=== PATIENT | male | born 1990 | race Caucasian/White ===

== ENCOUNTER 2017-04-21 18:32 | Inpatient (IN) | payer MEDICAID, OTHER ==
[~2017-04-21] VITALS: Ht 167.6 cm; Wt 110.0 kg
[2017-04-21] VITALS (9 sets, daily range): BP systolic 107–149; BP diastolic 50–56; PULSE 153–166; RESP 21–30
[2017-04-21] MEDS ORDERED: LABETALOL HCL 20MG INJ IV ONE (20:00)
[2017-04-21] MEDS: DEXTROSE 5%-0.45% NACL 1,000 ML IV SCH (20:10)
[2017-04-21] MEDS: FAMOTIDINE 20 MG INJ IV SCH (20:21)
[2017-04-21] MEDS: LORAZEPAM 2 MG INJ IV PRN (20:21)
[2017-04-21] MEDS: morphine 2 MG INJ IV PRN (20:27)
[2017-04-21] MEDS: IPRATROPIUM (HFA) 12.9 GM INHALER INH PRN (20:39)
[2017-04-21] MEDS: ALBUTEROL HFA 8 GM INHALER INH PRN (20:39)
[2017-04-21 21:14] LABS: AADO2 Arterial 334.8 mmHg (7.0-24.0); Allen Test ACCEPTAB; Arterial Base Excess 2.1 mmol/L (-3.0-3); Arterial COHb 0.3 % (0.0-3.0); Arterial Fraction of Oxyhgb 99.1 % (93.0-99.0); Arterial MetHb 0.5 % (0.0-1.5); Arterial Total Hemglobin 12.6 g/dl (12.0-18.0); MODE VENT - AC
[2017-04-21] MEDS ORDERED: DILTIAZEM 25 MG INJ IV ONE (23:00)
[2017-04-21] MEDS ORDERED: AMIODARONE 150MG/D5W BOLUS 100 ML ONE (23:49)
[2017-04-22] VITALS (34 sets, daily range): BP systolic 95–142; BP diastolic 51–88; PULSE 99–145; RESP 18–27; Ht 167.6 cm; Wt 110.0 kg
[2017-04-22] MEDS ORDERED: AMIODARONE 150MG/D5W BOLUS 100 ML IV ONE
[2017-04-22] MEDS ORDERED: AMIODARONE 900 MG in DEXTROSE 5% 482 ML IV SCH ×2 (00:15→20:30)
[2017-04-22] MEDS: LORAZEPAM 2 MG INJ IV PRN (01:37)
[2017-04-22] MEDS: IPRATROPIUM (HFA) 12.9 GM INHALER INH PRN ×2 (03:09→22:20)
[2017-04-22] MEDS: ALBUTEROL HFA 8 GM INHALER INH PRN ×2 (03:09→22:18)
[2017-04-22] MEDS: morphine 2 MG INJ IV PRN ×2 (04:26→21:39)
[2017-04-22 05:23] LABS: BASOPHIL # 0.1 10^3/ul (0.0-0.1); BASOPHILS % 0.4 % (0.0-2.0); EOSINOPHILS % 0.1 % (0.0-7.0); HEMATOCRIT 34.7 % (42.0-52.0); HEMOGLOBIN 10.6 g/dl (14.0-18.0); LYMPHOCYTES # 3.6 10^3/ul (0.8-2.9); LYMPHOCYTES % 22.4 % (15.0-51.0); MEAN CORPUSCULAR HEMOGLOBIN 24.4 pg (29.0-33.0); MEAN CORPUSCULAR HGB CONC 30.5 g/dl (32.0-37.0); MEAN PLATELET VOLUME 9.8 fl (7.4-10.4); MONOCYTE # 1.1 10^3/ul (0.3-0.9); MONOCYTES % 7.1 % (0.0-11.0); NEUTROPHIL # 11.2 10^3/ul (1.6-7.5); NEUTROPHILS % 69.7 % (39.0-77.0); PLATELET COUNT 560 10^3/UL (140-415); RED BLOOD COUNT 4.34 10^6/ul (4.70-6.10); RED CELL DISTRIBUTION WIDTH 17.9 % (11.5-14.5); WHITE BLOOD COUNT 16.1 10^3/ul (4.8-10.8)
[2017-04-22 05:43] LABS: CALCIUM 9.3 mg/dl (8.4-10.2); CREATININE 0.31 mg/dl (0.61-1.24); POTASSIUM 3.5 mmol/L (3.5-5.1)
[2017-04-22] MEDS: DEXTROSE 5%-0.45% NACL 1,000 ML IV SCH ×2 (06:15→17:11)
--- NOTE | 2017-04-22 07:16 | HP ---
Date/Time of Note Date/Time of Note DATE: 04/22/17 TIME: 07:08 Assessment/Plan VTE Prophylaxis VTE Prophylaxis Intervention: SCD's Lines/Catheters IV Catheter Type (from Nrs): PICC Line Central line still needed: Yes Urinary Cath still in place: Yes Reason Cath still needed: other (indicate) Assessment/Plan Assessment/Plan ASSESSMENT 26-year-old obese male with trach/vent dependent with 30 failure transferred from a [facility] [facility] facility for small bowel obstruction with CT scan finding concerning for the distal colonic pathology. Patient also is septic, as evidenced by fever, leukocytosis and tachycardia, most likely secondary to decubitus ulcer with possible osteomyelitis of the coccyx PLAN -Continue ICU monitoring -Keep n.p.o. -Follow-up surgery recommendations -IV antibiotic -ID consult -Follow-up culture results -We will consider MRI for further evaluation of possible coccyx osteo -Pulmonary to follow along for trach dependent respiratory failure HPI/ROS Admit Date/Time Admit Date/Time Apr 21, 2017 at 18:32 Hx of Present Illness 26-year-old obese male with trach/vent dependent respiratory failure who had been at [facility] [facility] facility was transferred to [facility] for small bowel obstruction. Patient is currently admitted to ICU. He has been tachycardic, sinus as high as 160s. He also had a temp of 100.4. CT abdomen pelvis with findings concerning for small bowel obstruction possibly secondary to distal colonic pathology. It also showed right paracentral decubitus ulcer with increased attenuation of the subcutaneous fat adjacent to the coccygeal tip with osteomyelitis of the coccyx not being able to be excluded. PMH/Family/Social Social History Smoking Status: Unknown if ever smoked Exam/Review of Systems Vital Signs Vitals Vital Signs Date Time Temp Pulse Resp B/P Pulse Ox O2 Delivery O2 Flow Rate FiO2 04/22/17 06:00 134 19 127/78 100 Mechanical Ventilator 04/22/17 05:10 40 04/22/17 04:00 99.2 Intake and Output 04/21/17 04/21/17 04/22/17 15:00 23:00 07:00 Intake Total 300 ml 999.8 ml Output Total 140 ml 200 ml Balance 160 ml 799.8 ml Exam Constitutional: other (trached) Head: normocephalic Respiratory: diminished breath sounds Cardiovascular: regular rate and rhythm Gastrointestinal: soft Extremities: normal pulses Labs Result Diagram: 04/22/1745204/22/17 0453 Medications Medications Current Medications Dextrose/Sodium Chloride (D5-1/2ns) 1,000 ml @ 100 mls/hr Q10H IV Last administered on 04/22/17 06:15; Admin Dose 100 MLS/HR; Start 04/21/17 at 19:48 Ondansetron HCl (Zofran Inj) 4 mg Q6H PRN IV NAUSEA AND/OR VOMITING; Start 04/21/17 at 20:00 Morphine Sulfate (morphine) 2 mg Q4H PRN IV PAIN LEVEL 7-10 Last administered on 04/22/17 04:26; Admin Dose 2 MG; Start 04/21/17 at 20:00 Lorazepam (Ativan) 1 mg Q2H PRN IV ANXIETY Last administered on 04/22/17 01:37 ; Admin Dose 1 MG; Start 04/21/17 at 20:00 Famotidine (Pepcid Iv) 20 mg Q12 IV Last administered on 04/21/17 20:21; Admin Dose 20 MG; Start 04/21/17 at 21:00 GEOVANNA ESTRADA MD Apr 22, 2017 07:16
[2017-04-22] MEDS ORDERED: VANCOMYCIN IV PER PHARMACY XX SCH (07:30)
[2017-04-22] MEDS ORDERED: VANCOMYCIN 2 GM in SOD CHLORIDE 0.9% 500 ML IVPB ONE (09:00)
[2017-04-22] MEDS: PIPER-TAZO 3.375 GM IV (PMX) 50 ML IVPB SCH ×4 (09:00→21:14)
[2017-04-22] MEDS: FAMOTIDINE 20 MG INJ IV SCH ×2 (09:04→21:13)
[2017-04-22] MEDS: ONDANSETRON 4 MG INJ IV PRN (09:43)
[2017-04-22] MEDS ORDERED: PROPOFOL 20 ML ONE (10:49)
[2017-04-22] MEDS ORDERED: ROCURONIUM 50 MG INJ ONE (11:26)
[2017-04-22 11:47] LABS: ADD UMIC YES; UR ASCORBIC ACID NEGATIVE (NEGATIVE); UR BACTERIA FEW /HPF (NONE SEEN); UR BILIRUBIN (Dip) NEGATIVE (NEGATIVE); UR BLOOD (Dip) 2+ mg/dL (NEGATIVE); UR CLARITY CLOUDY (CLEAR); UR COLOR AMBER (YELLOW); UR GLUCOSE (Dip) NEGATIVE (NEGATIVE); UR KETONES (Dip) NEGATIVE (NEGATIVE); UR LEUKOCYTE ESTERASE (Dip) NEGATIVE Leu/ul (NEGATIVE); UR MUCUS MANY /HPF (NONE SEEN); UR NITRITE (Dip) NEGATIVE (NEGATIVE); UR RBC 177 /HPF (0-5); UR SPECIFIC GRAVITY (Dip) 1.034 (1.003-1.030); UR SQUAMOUS EPITHELIAL CELL FEW /HPF (FEW); UR TOTAL PROTEIN (Dip) 2+ mg/dl (NEGATIVE); UR UROBILINOGEN (Dip) NEGATIVE (NEGATIVE)
--- NOTE | 2017-04-22 11:51 | CONS ---
DATE OF ADMISSION: 04/21/2017 DATE OF CONSULTATION: REASON FOR CONSULTATION: Ventilator management. Thank you, DrEmperatriz , for this consultation. HISTORY OF PRESENT ILLNESS: This is a 26-year-old gentleman with multiple medical problems. The pa [facility]ra[facility] at [facility] where he was protocol yesterday, had increasing abdominal pain, nausea, vomiting, evidence of bowel obstruction. In addition, he was tachycardic, heart rate in the 140s, but no hemodynamic compromise requiring transfer to ICU where he continues to have mil d abdominal distention but no hemodynamic compromise is noted. PAST MEDICAL HISTORY: 1. Hypoxemic respiratory failure. 2. Ileus. 3. Decubitus ulcer. 4. Leukocytosis. MEDICATIONS: Per chart. ALLERGIES: NONE. SOCIAL HISTORY: Current nonsmoker, no alcohol, no history of drug use. FAMILY HISTORY: Noncontributory. SYSTEMS REVIEW: A 12-point review of systems unable to perform. PHYSICAL EXAMINATION: GENERAL: Anxious gentleman, appears comfortable at rest, no acute distress. VITAL SIGNS: Currently afebrile, pulse is 120, blood pressure 122/70, O2 saturation 96%, FIO2 of 40 %. NECK: Trach site clean and intact. CARDIAC: S1, S2, no added sounds or murmurs. CHEST: Diminished air entry bilaterally. ABDOMEN: Soft, nontender. No guarding or rebound. EXTREMITIES: No cyanosis, clubbing, 1+ edema. NEUROLOGIC: Generalized weakness. LABORATORY DATA: White count 16.1, hemoglobin 10.6, platelets of 560. BUN 16, creatinine 0.31. Chest x-ray pending at time of this dictation. Abdominal CT showed distended stomach and small patricia l loops concerning for small-bowel obstruction, no evidence of pneumoperitoneum. PLAN: 1. Continue mechanical ventilation. 2. Continue surgical recommendations. 3. Broad-spectrum antibiotics. 4. Wound care. 5. Deep venous thrombosis and gastrointestinal prophylaxis. Dictated By: JIMMIE SAAVEDRA/MASON Conf#: [id number] DID#: [id number]
--- NOTE | 2017-04-22 12:17 | OPPN ---
Date/Time of Note Date/Time of Note DATE: 04/22/17 TIME: 12:16 Proc Note GI Procedure Date 04/22/17 Indication: treatment Pre-procedure Diagnosis Buried bumper syndrome Post-procedure Diagnosis G-tube bumper was in the subcutaneous tissue. Old G-tube with the bumper was removed New PEG placed Severe gastroparesis There was no motility of the small intestine and also 1 L of fluid was removed from the stomach Procedure Performed: Endoscopy Surgeon see signature line Scientific Manager none Anesthesia Type: MAC Tourniquet Time none EBL none Transfusion required none Biopsy 1: None Grafts/Implants none Tubes/Drains none Complication(s) none Disposition: other (Procedure was done bedside in ICU) Procedure Description Report dictated JAMES GOODWIN MD Apr 22, 2017 12:17
--- NOTE | 2017-04-22 12:44 | GILP ---
DATE OF PROCEDURE: The patient is a 26-year-old male undergoing this procedure for the buried bumper syndrome. The bum per was not in the stomach, it was in the subcutaneous tissue. The purpose is to evaluate the stoma ch and remove the bumper under endoscopic guidance and also put another G-tube, hopefully through th e same opening. The risk of the procedure, related and unrelated complications, anesthetic risks, a lternatives discussed. Informed consent was obtained. DESCRIPTION OF PROCEDURE: The procedure was done bedside. After obtaining sedation, scope was pass ed with much ease into the esophagus. There was a large quantity of fluid in the fundal area, it wa s biliary juice dilated with gastric content. One liter of fluid was removed. The bumper was in th e subcutaneous tissue barely the white part, 10% of the bumper was visualized from the stomach. Thr ough the external stalk I passed the suture to come out through the bumper into the stomach. The blue string was then snared with endoscopically passed snared and pulled out through the m outh. The loop of the original G-tube was tied to the string and the string was pulled out on the o ther side. The old G-tube was removed by traction and through the same opening that the new G-tube was pulled out and the whole procedure was completed by modified Ponsky technique. The patient was rescoped. The position of the internal bumper confirmed. Pictures were taken for documentation adv anced into the duodenum. Ampulla appeared normal. There was some fluid in the duodenum which was a spirated, but there was absolutely no peristalsis both in the stomach and duodenum. Retroversion do ne. Again, there was some fluid in the fundal area tried to aspirate as much as possible. Scope wa s straightened out and removed with good patient tolerance. IMPRESSION: 1. Buried bumper in the subcutaneous tissue, barely visualized from the stomach. 2. Placement of the new G-tube through the same opening. 3. One liter of fluid was removed from the stomach. 4. Severe gastroparesis. 5. The peristalsis was absent, even in the small intestine. PLAN: To start the patient on Reglan IV. Hopefully we will get back his peristalsis and then eithe r we can resume feeding or give Maxzide to clean him out. Dictated By: JAMES FERGUSON/MASON Conf#: [id number] DID#: [id number]
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
[2017-04-22] MEDS ORDERED: VANCOMYCIN 1.25 GM in SOD CHLORIDE 0.9% 250 ML IVPB SCH (17:00)
[2017-04-22] MEDS: METOCLOPRAMIDE 10 MG INJ IV SCH ×2 (17:08→23:57)
[2017-04-23] VITALS (36 sets, daily range): BP systolic 91–132; BP diastolic 44–64; PULSE 71–108; RESP 20–24
[2017-04-23] MEDS: ACCU-CHEK XX SCH ×5 (00:10→23:43)
[2017-04-23] MEDS: morphine 2 MG INJ IV PRN ×4 (01:50→20:39)
[2017-04-23] MEDS: DEXTROSE 5%-0.45% NACL 1,000 ML IV SCH ×2 (01:54→15:06)
[2017-04-23 05:31] LABS: BASOPHIL # 0.1 10^3/ul (0.0-0.1); BASOPHILS % 0.5 % (0.0-2.0); EOSINOPHILS # 0.3 10^3/ul (0.0-0.5); EOSINOPHILS % 2.2 % (0.0-7.0); HEMATOCRIT 28.5 % (42.0-52.0); HEMOGLOBIN 8.6 g/dl (14.0-18.0); LYMPHOCYTES # 2.6 10^3/ul (0.8-2.9); LYMPHOCYTES % 19.8 % (15.0-51.0); MEAN CORPUSCULAR HEMOGLOBIN 24.4 pg (29.0-33.0); MEAN CORPUSCULAR HGB CONC 30.2 g/dl (32.0-37.0); MEAN PLATELET VOLUME 9.6 fl (7.4-10.4); MONOCYTE # 0.9 10^3/ul (0.3-0.9); MONOCYTES % 6.7 % (0.0-11.0); NEUTROPHIL # 9.3 10^3/ul (1.6-7.5); NEUTROPHILS % 70.3 % (39.0-77.0); PLATELET COUNT 427 10^3/UL (140-415); RED BLOOD COUNT 3.52 10^6/ul (4.70-6.10); RED CELL DISTRIBUTION WIDTH 17.7 % (11.5-14.5); WHITE BLOOD COUNT 13.2 10^3/ul (4.8-10.8)
[2017-04-23 05:41] LABS: CALCIUM 8.4 mg/dl (8.4-10.2); CREATININE 0.27 mg/dl (0.61-1.24); MAGNESIUM 1.8 mg/dl (1.7-2.5); PHOSPHORUS 4.1 mg/dl (2.5-4.9)
[2017-04-23] MEDS: LORAZEPAM 2 MG INJ IV PRN ×4 (05:44→22:28)
[2017-04-23] MEDS: PIPER-TAZO 3.375 GM IV (PMX) 50 ML IVPB SCH ×4 (05:44→21:15)
[2017-04-23] MEDS: METOCLOPRAMIDE 10 MG INJ IV SCH ×4 (05:44→23:37)
[2017-04-23 05:49] LABS: POTASSIUM 2.7 mmol/L (3.5-5.1)
[2017-04-23] MEDS ORDERED: POTASSIUM CHLORIDE 250 ML IVPB ONE (06:00)
[2017-04-23] MEDS ORDERED: POTASSIUM CHLORIDE 250 ML ONE (06:04)
[2017-04-23] MEDS: IPRATROPIUM (HFA) 12.9 GM INHALER INH PRN (07:28)
[2017-04-23] MEDS: ALBUTEROL HFA 8 GM INHALER INH PRN (07:29)
[2017-04-23] MEDS: FAMOTIDINE 20 MG INJ IV SCH ×2 (09:22→21:15)
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
[2017-04-23] MEDS ORDERED: POTASSIUM CHLORIDE 20 MEQ in DEXTROSE 5% 100 ML IVPB ONE (10:00)
[2017-04-23] MEDS ORDERED: MAGNESIUM SULFATE 3 GM in DEXTROSE 5% 100 ML IVPB ONE (10:00)
[2017-04-23] MEDS ORDERED: VANCOMYCIN 1.25 GM in SOD CHLORIDE 0.9% 250 ML IVPB SCH (10:00)
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
[2017-04-23 13:29] LABS: CALCIUM 8.8 mg/dl (8.4-10.2); CREATININE 0.32 mg/dl (0.61-1.24); POTASSIUM 3.5 mmol/L (3.5-5.1)
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
--- NOTE | 2017-04-23 13:56 | PN ---
Date/Time of Note Date/Time of Note DATE: 04/23/17 TIME: 13:48 Assessment/Plan Lines/Catheters IV Catheter Type (from [facility] Mid Line Schumacher in Place (from [facility]): Yes Assessment/Plan Chief Complaint/Hosp Course 1. Small bowel obstruction from ?distal colon pathology: now w bowel function to rectal tube; likely resolved -gi for evaluation of ?distal colon pathology -rectal tube to contain feces away from sacral wound -ivf -monitor -eventual ostomy 2. Gtube dislodgement -found at subq; replced by gi -monitor 3. Leukocytosis: likely 2/2 #1+/-2 +/- 6; improving -as above 4. Microcytic, hypochromic anemia: -monitor -transfuse as needed -further workup per medical team 5. VDRF -pulm toilet -respiratory treatments 6. Sacral wound: -debridement prn -local care-changed to bid -frequent turning and off-loading -low air loss mattress -vitamin c -short term zinc -optimize nutrition -cultures 7. Sinus tachycardia: s/p amio drip -per cards Thank you. Patient seen and examined in collaboration with Dr. Kevin Rushing. Problems: Subjective 24 Hr Interval Summary Feels much improved. Abdominal distention much improved. +bowel function per rectal tube. No fevers, chills, sob, congested cough, cp, palpitations, blanco, dizziness, n/v/d/dysuria. Exam/Review of Systems Vital Signs Vitals Vital Signs Date Time Temp Pulse Resp B/P Pulse Ox O2 Delivery O2 Flow Rate FiO2 04/23/17 13:23 92 20 98 40 04/23/17 12:00 94/58 Mechanical Ventilator 04/23/17 11:00 98.3 Intake and Output 04/22/17 04/22/17 04/23/17 15:00 23:00 07:00 Intake Total 683.30 ml 945.82 ml Output Total 200 ml 1010 ml 350 ml Balance -200 ml -326.70 ml 595.82 ml Exam Free Text/Dictation Constitutional: alert, oriented Psych: anxiety Head: atraumatic, normocephalic Eyes: nl lids, nl sclera ENMT: mucosa pink and moist, nl nasal mucosa & septum Neck: non-tender, other (trach), supple Respiratory: No labored breathing Cardiovascular: rrr, sr Gastrointestinal: distended (mod ), soft, No tender Genitourinary - Male: nl penis, nl scrotum Musculoskeletal: nl extremities to inspection, No muscle tone Extremities: normal pulses, No edema Neurological: other (quadriplegia), No nl strength Skin: other (wounds - nurses notes and pics: sacral wound packed, malodorous, erythema periwound ) Results Result Diagram: 04/23/17 0458 04/23/17 1238 REGINO GLOVER NP Apr 23, 2017 13:55
[2017-04-23] MEDS: VANCOMYCIN 1 GM in NS 250 ML IVPB SCH ×2 (15:02→22:17)
[2017-04-23] MEDS: SODIUM HYPOCHLORITE 1/40% 1L IRRIG IRR SCH (15:58)
[2017-04-23] MEDS: COLLAGENASE 30 GM TUBE TOP SCH (16:00)
--- NOTE | 2017-04-23 16:26 | CONS ---
Date/Time of Note Date/Time of Note DATE: 04/23/17 TIME: 16:24 Assessment/Plan Assessment/Plan Additional Assessment/Plan 1. Buried bumper syndrome. Old G-tube was removed and new PEG was placed 2. Vent dependent respiratory failure 3. Obesity 4. Quadriplegia 5. Ileus 6. Decubitus ulcer Plan Plan the G-tube if no abdominal distention nausea vomiting then he can start feeding him after few hours. We will start with 20 cc/h and advance it slowly Consultation Date/Type/Reason Admit Date/Time Apr 21, 2017 at 18:32 Initial Consult Date 04/22/17 Type of Consultation: ID 24 HR Interval Summary Free Text/Dictation No complaints No abdominal pain no nausea no vomiting. Exam/Review of Systems Vital Signs Vitals Vital Signs Date Time Temp Pulse Resp B/P Pulse Ox O2 Delivery O2 Flow Rate FiO2 04/23/17 15:25 88 20 100 40 04/23/17 15:00 99/48 Mechanical Ventilator 04/23/17 11:00 98.3 Intake and Output 04/22/17 04/22/17 04/23/17 14:59 22:59 06:59 Intake Total 566.64 ml 983.28 ml Output Total 210 ml 990 ml 400 ml Balance -210 ml -423.36 ml 583.28 ml Exam Constitutional: alert, oriented, well developed Psych: nl mood/affect, no complaints Head: atraumatic, normocephalic Eyes: EOMI, PERRL, nl conjunctiva, nl lids, nl sclera ENMT: nl external ears & nose, nl lips & teeth, nl nasal mucosa & septum Neck: non-tender, supple Respiratory: clear to auscultation, normal air movement Cardiovascular: nl pulses, regular rate and rhythm Gastrointestinal: nl liver, spleen, non-tender, soft Musculoskeletal: nl extremities to inspection, nl gait and stance Extremities: normal pulses Neurological: APPLICATION DEVELOPMENT LIAISON II-XII intact, nl mental status, nl speech, nl strength Skin: nl turgor, No rash or lesions Lymph: nl lymph nodes Results Result Diagram: 04/23/17 0458 04/23/17 1238 Results 24 hrs Laboratory Tests Test 04/23/17 00:12 04/23/17 04:58 04/23/17 06:10 04/23/17 07:59 Bedside Glucose 123 109 White Blood Count 13.2 H Red Blood Count 3.52 L Hemoglobin 8.6 L Hematocrit 28.5 L Mean Corpuscular Volume 81.0 L Mean Corpuscular Hemoglobin 24.4 L Mean Corpuscular Hemoglobin Concent 30.2 L Red Cell Distribution Width 17.7 H Platelet Count 427 #H Mean Platelet Volume 9.6 Neutrophils % 70.3 Lymphocytes % 19.8 Monocytes % 6.7 Eosinophils % 2.2 Basophils % 0.5 Nucleated Red Blood Cells % 0.0 Neutrophils # 9.3 H Lymphocytes # 2.6 Monocytes # 0.9 Eosinophils # 0.3 Basophils # 0.1 Nucleated Red Blood Cells # 0.0 Sodium Level 136 Potassium Level 2.7 *L Chloride Level 100 Carbon Dioxide Level 26 Anion Gap 13 Blood Urea Nitrogen 11 Creatinine 0.27 L Glucose Level 113 Calcium Level 8.4 Phosphorus Level 4.1 Magnesium Level 1.8 Vancomycin Level Trough 8.2 L Test 04/23/17 12:38 04/23/17 13:16 Sodium Level 137 Potassium Level 3.5 Chloride Level 102 Carbon Dioxide Level 25 Anion Gap 14 Blood Urea Nitrogen 9 Creatinine 0.32 L Glucose Level 99 Calcium Level 8.8 Bedside Glucose 104 Medications Medications Current Medications Dextrose/Sodium Chloride (D5-1/2ns) 1,000 ml @ 100 mls/hr Q10H IV Last administered on 04/23/17 15:06; Admin Dose 100 MLS/HR; Start 04/21/17 at 19:48 Ondansetron HCl (Zofran Inj) 4 mg Q6H PRN IV NAUSEA AND/OR VOMITING Last administered on 04/22/17 09:43; Admin Dose 4 MG; Start 04/21/17 at 20:00 Morphine Sulfate (morphine) 2 mg Q4H PRN IV PAIN LEVEL 7-10 Last administered on 04/23/17 15:56; Admin Dose 2 MG; Start 04/21/17 at 20:00 Lorazepam (Ativan) 1 mg Q2H PRN IV ANXIETY Last administered on 04/23/17 15: 56; Admin Dose 1 MG; Start 04/21/17 at 20:00 Famotidine 20 mg 20 mg Q12 IV Last administered on 04/23/17 09:22; Admin Dose 20 MG; Start 04/21/17 at 21:00 Piperacillin Sod/ Tazobactam Sod (Zosyn 3.375gm/ 50 ml (Pmx)) 50 ml @ 100 mls/ hr Q6H IVPB Last administered on 04/23/17 15:55; Admin Dose 100 MLS/HR; Start 04/22/17 at 09:00 Metoclopramide HCl (Reglan) 10 mg Q6 IV Last administered on 04/23/17 13:17; Admin Dose 10 MG; Start 04/22/17 at 18:00 Diagnostic Test (Pha) 1 ea 1 ea Q6 XX Last administered on 04/23/17 06:11; Admin Dose 1 EA; Start 04/23/17 at 00:00 Vancomycin HCl (Vancocin) 250 ml @ 125 mls/hr Q8 IVPB Last administered on 15:02; Admin Dose 125 MLS/HR; Start 04/23/17 at 14:00 Sodium Hypochlorite (Dakin'S (Dilute 1/40%)) 1 applic BID IRR Last administered on 04/23/17 15:58; Admin Dose 1 APPLIC; Start 04/23/17 at 14:30 Collagenase (Santyl) 1 applic DAILY TOP ; Start 04/23/17 at 16:00 JAMES GOODWIN MD Apr 23, 2017 16:26
--- NOTE | 2017-04-23 16:46 | PN ---
Date/Time of Note Date/Time of Note DATE: 04/23/17 TIME: 16:40 Assessment/Plan VTE Prophylaxis VTE Prophylaxis Intervention: SCD's Assessment/Plan Chief Complaint/Hosp Course 1. Small bowel obstruction-resolved -rectal tube in place to keep feces away from sacral wound -eventual ostomy 2. PEG tube dislodgement -PEG tube was changed by GI 3. Sepsis secondary to decubitus wounds -Continue IV antibiotics -Wound care 4. Microcytic anemia secondary to anemia of chronic disease 5. VDRF -Continue vent support -Pulmonology following 6. Sacral wound: -debridement as needed -Surgical consultation appreciated -Follow-up on cultures 7. Sinus tachycardia status post amiodarone drip-resolved -Cardiology consultation appreciated -Preserved EF Prophylaxis: SCDs Problems: Subjective 24 Hr Interval Summary Subjective hx not possible: pt non-verbal Exam/Review of Systems Vital Signs Vitals Vital Signs Date Time Temp Pulse Resp B/P Pulse Ox O2 Delivery O2 Flow Rate FiO2 04/23/17 15:25 88 20 100 40 04/23/17 15:00 99/48 Mechanical Ventilator 04/23/17 11:00 98.3 Intake and Output 04/22/17 04/22/17 04/23/17 15:00 23:00 07:00 Intake Total 683.30 ml 945.82 ml Output Total 200 ml 1010 ml 350 ml Balance -200 ml -326.70 ml 595.82 ml Exam Constitutional: non-verbal Respiratory: clear to auscultation Cardiovascular: regular rate and rhythm Gastrointestinal: soft, No distended Musculoskeletal: nl extremities to inspection Results Result Diagram: 04/23/17 0458 04/23/17 1238 Results 24 hrs Laboratory Tests Test 04/23/17 00:12 04/23/17 04:58 04/23/17 06:10 04/23/17 07:59 Bedside Glucose 123 109 White Blood Count 13.2 H Red Blood Count 3.52 L Hemoglobin 8.6 L Hematocrit 28.5 L Mean Corpuscular Volume 81.0 L Mean Corpuscular Hemoglobin 24.4 L Mean Corpuscular Hemoglobin Concent 30.2 L Red Cell Distribution Width 17.7 H Platelet Count 427 #H Mean Platelet Volume 9.6 Neutrophils % 70.3 Lymphocytes % 19.8 Monocytes % 6.7 Eosinophils % 2.2 Basophils % 0.5 Nucleated Red Blood Cells % 0.0 Neutrophils # 9.3 H Lymphocytes # 2.6 Monocytes # 0.9 Eosinophils # 0.3 Basophils # 0.1 Nucleated Red Blood Cells # 0.0 Sodium Level 136 Potassium Level 2.7 *L Chloride Level 100 Carbon Dioxide Level 26 Anion Gap 13 Blood Urea Nitrogen 11 Creatinine 0.27 L Glucose Level 113 Calcium Level 8.4 Phosphorus Level 4.1 Magnesium Level 1.8 Vancomycin Level Trough 8.2 L Test 04/23/17 12:38 04/23/17 13:16 Sodium Level 137 Potassium Level 3.5 Chloride Level 102 Carbon Dioxide Level 25 Anion Gap 14 Blood Urea Nitrogen 9 Creatinine 0.32 L Glucose Level 99 Calcium Level 8.8 Bedside Glucose 104 Medications Medications Current Medications Dextrose/Sodium Chloride (D5-1/2ns) 1,000 ml @ 100 mls/hr Q10H IV Last administered on 04/23/17 15:06; Admin Dose 100 MLS/HR; Start 04/21/17 at 19:48 Ondansetron HCl (Zofran Inj) 4 mg Q6H PRN IV NAUSEA AND/OR VOMITING Last administered on 04/22/17 09:43; Admin Dose 4 MG; Start 04/21/17 at 20:00 Morphine Sulfate (morphine) 2 mg Q4H PRN IV PAIN LEVEL 7-10 Last administered on 04/23/17 15:56; Admin Dose 2 MG; Start 04/21/17 at 20:00 Lorazepam (Ativan) 1 mg Q2H PRN IV ANXIETY Last administered on 04/23/17 15: 56; Admin Dose 1 MG; Start 04/21/17 at 20:00 Famotidine 20 mg 20 mg Q12 IV Last administered on 04/23/17 09:22; Admin Dose 20 MG; Start 04/21/17 at 21:00 Piperacillin Sod/ Tazobactam Sod (Zosyn 3.375gm/ 50 ml (Pmx)) 50 ml @ 100 mls/ hr Q6H IVPB Last administered on 04/23/17 15:55; Admin Dose 100 MLS/HR; Start 04/22/17 at 09:00 Metoclopramide HCl (Reglan) 10 mg Q6 IV Last administered on 04/23/17 13:17; Admin Dose 10 MG; Start 04/22/17 at 18:00 Diagnostic Test (Pha) 1 ea 1 ea Q6 XX Last administered on 04/23/17 06:11; Admin Dose 1 EA; Start 04/23/17 at 00:00 Vancomycin HCl (Vancocin) 250 ml @ 125 mls/hr Q8 IVPB Last administered on 15:02; Admin Dose 125 MLS/HR; Start 04/23/17 at 14:00 Sodium Hypochlorite (Dakin'S (Dilute 1/40%)) 1 applic BID IRR Last administered on 04/23/17 15:58; Admin Dose 1 APPLIC; Start 04/23/17 at 14:30 Collagenase (Santyl) 1 applic DAILY TOP ; Start 04/23/17 at 16:00 SVEN WALLACE Apr 23, 2017 16:46
--- NOTE | 2017-04-23 19:26 | CONS ---
DATE OF ADMISSION: 04/21/2017 DATE OF CONSULTATION: 04/21/2017 CONSULTING SERVICE: Gastroenterology. REQUESTING PROVIDER: Dallas Gaming MD. HISTORY OF PRESENT ILLNESS: A 26-year-old male with trach, status post , who was in [facility]. The patient was prepared with GoLYTELY for constipation and for some reason he had no bowel movement despite taking 4 liters of GoLYTELY. At that point, a CAT scan was done and the G-tube was not in the stomach and there was narrowing in the distal part of the colon, so GI consult was leyva d in. 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 He denies having an y abdominal pain. No nausea, no vomiting, no GI bleeding, no fever, no chills. Because of the tach ycardia and inability to have a bowel movement, he was subsequently transferred to intensive care [facility] for further management. PAST MEDICAL HISTORY: Negative. SOCIAL HISTORY: Does not smoke or drink. PHYSICAL EXAMINATION: VITALS: Stable. GENERAL: Patient is alert, awake, communicating, oriented, morbidly obese. CARDIOVASCULAR: No murmur. LUNGS: Air entry diminished at both bases. ABDOMEN: Soft. G-tube in place, but does not move in and out, indicating that it is buried in the subcutaneous tissue. EXTREMITIES: No edema. CENTRAL NERVOUS SYSTEM: Grossly within normal limit except for paraplegia. LABORATORY DATA: WBC 16, hematocrit 34. IMPRESSION: 1. Respiratory failure, vent dependent. 2. Ileus. 3. Buried bumper syndrome. 4. Decubitus ulcer. 5. Leukocytosis. 6. Quadriplegia. PLAN: At this point is to proceed with EGD and under endoscopic guidance document and remove the G- tube and replace it with a new G-tube, hopefully through same opening. Continue all the supportive care. Dictated By: JAMES FERGUSON/MASON Conf#: [id number] DID#: [id number]
[2017-04-23] MEDS: TRIAMCINOLONE ACET 0.1% 15 GM OINT TOP SCH (23:37)
[2017-04-24] VITALS (34 sets, daily range): BP systolic 97–131; BP diastolic 45–75; PULSE 79–124; RESP 13–26
[2017-04-24] MEDS: PIPER-TAZO 3.375 GM IV (PMX) 50 ML IVPB SCH ×3 (02:37→14:07)
[2017-04-24] MEDS: SODIUM HYPOCHLORITE 1/40% 1L IRRIG IRR SCH ×3 (02:47→21:21)
[2017-04-24] MEDS: LORAZEPAM 2 MG INJ IV PRN ×4 (03:57→23:04)
[2017-04-24] MEDS: METOCLOPRAMIDE 10 MG INJ IV SCH ×3 (05:16→18:23)
[2017-04-24] MEDS: VANCOMYCIN 1 GM in NS 250 ML IVPB SCH ×2 (05:17→14:07)
[2017-04-24] MEDS: morphine 2 MG INJ IV PRN ×4 (05:17→18:21)
[2017-04-24] MEDS: DEXTROSE 5%-0.45% NACL 1,000 ML IV SCH ×2 (06:33→07:48)
[2017-04-24] MEDS: ACCU-CHEK XX SCH ×5 (06:39→21:00)
[2017-04-24] MEDS: ALBUTEROL HFA 8 GM INHALER INH PRN ×3 (07:43→20:54)
[2017-04-24] MEDS: IPRATROPIUM (HFA) 12.9 GM INHALER INH PRN ×3 (07:44→20:55)
[2017-04-24 08:56] LABS: BASOPHIL # 0.1 10^3/ul (0.0-0.1); BASOPHILS % 0.4 % (0.0-2.0); EOSINOPHILS # 0.4 10^3/ul (0.0-0.5); EOSINOPHILS % 3.1 % (0.0-7.0); HEMATOCRIT 26.5 % (42.0-52.0); HEMOGLOBIN 8.2 g/dl (14.0-18.0); LYMPHOCYTES # 1.8 10^3/ul (0.8-2.9); LYMPHOCYTES % 16.2 % (15.0-51.0); MEAN CORPUSCULAR HEMOGLOBIN 25.3 pg (29.0-33.0); MEAN CORPUSCULAR HGB CONC 30.9 g/dl (32.0-37.0); MEAN CORPUSCULAR VOLUME 81.8 fl (82.0-101.0); MEAN PLATELET VOLUME 9.9 fl (7.4-10.4); MONOCYTE # 0.6 10^3/ul (0.3-0.9); NEUTROPHIL # 8.4 10^3/ul (1.6-7.5); NEUTROPHILS % 74.9 % (39.0-77.0); PLATELET COUNT 449 10^3/UL (140-415); RED BLOOD COUNT 3.24 10^6/ul (4.70-6.10); RED CELL DISTRIBUTION WIDTH 17.2 % (11.5-14.5); WHITE BLOOD COUNT 11.2 10^3/ul (4.8-10.8)
[2017-04-24] MEDS: COLLAGENASE 30 GM TUBE TOP SCH (09:00)
[2017-04-24] MEDS: TRIAMCINOLONE ACET 0.1% 15 GM OINT TOP SCH (09:01)
[2017-04-24] MEDS: FAMOTIDINE 20 MG INJ IV SCH (09:01)
[2017-04-24 09:16] LABS: CALCIUM 8.6 mg/dl (8.4-10.2); CREATININE 0.27 mg/dl (0.61-1.24); POTASSIUM 3.1 mmol/L (3.5-5.1)
[2017-04-24] MEDS: VANCOMYCIN HCL 250 MG/5ML POSYG PO SCH ×2 (11:32→18:20)
--- NOTE | 2017-04-24 11:48 | CONS ---
Date/Time of Note Date/Time of Note DATE: 04/24/17 TIME: 11:45 Consult Date/Type/Reason Admit Date/Time Apr 21, 2017 at 18:32 Initial Consult Date 04/22/17 Type of Consultation: Pulmonary Subjective Patient remains stable. Awake alert oriented. No vasopressors. Tube feeding being started. Objective Vital Signs Date Time Temp Pulse Resp B/P Pulse Ox O2 Delivery O2 Flow Rate FiO2 04/24/17 09:00 106 21 97 04/24/17 08:00 98.1 107/54 Mechanical Ventilator 04/24/17 08:00 35 Intake and Output 04/23/17 04/23/17 04/24/17 15:00 23:00 07:00 Intake Total 886.9 ml 1100 ml 1150 ml Output Total 301 ml 536 ml 890 ml Balance 585.9 ml 564 ml 260 ml Exam PHYSICAL EXAMINATION: GENERAL: Anxious gentleman, appears comfortable at rest, no acute distress. VITAL SIGNS: NECK: Trach site clean and intact. CARDIAC: S1, S2, no added sounds or murmurs. CHEST: Diminished air entry bilaterally. ABDOMEN: Soft, nontender. No guarding or rebound. EXTREMITIES: No cyanosis, clubbing, 1+ edema. NEUROLOGIC: Generalized weakness. Results/Medications Result Diagram: 04/24/17 0816 04/24/17 0816 Results 24 hrs Laboratory Tests Test 04/23/17 12:38 04/23/17 13:16 04/23/17 19:20 04/23/17 23:42 Sodium Level 137 Potassium Level 3.5 Chloride Level 102 Carbon Dioxide Level 25 Anion Gap 14 Blood Urea Nitrogen 9 Creatinine 0.32 L Glucose Level 99 Calcium Level 8.8 Bedside Glucose 104 113 91 Test 04/24/17 03:56 04/24/17 06:36 04/24/17 08:16 04/24/17 11:41 Bedside Glucose 97 93 104 White Blood Count 11.2 H Red Blood Count 3.24 L Hemoglobin 8.2 L Hematocrit 26.5 L Mean Corpuscular Volume 81.8 L Mean Corpuscular Hemoglobin 25.3 L Mean Corpuscular Hemoglobin Concent 30.9 L Red Cell Distribution Width 17.2 H Platelet Count 449 H Mean Platelet Volume 9.9 Neutrophils % 74.9 Lymphocytes % 16.2 Monocytes % 5.0 Eosinophils % 3.1 Basophils % 0.4 Nucleated Red Blood Cells % 0.0 Neutrophils # 8.4 H Lymphocytes # 1.8 Monocytes # 0.6 Eosinophils # 0.4 Basophils # 0.1 Nucleated Red Blood Cells # 0.0 Sodium Level 140 Potassium Level 3.1 L Chloride Level 106 Carbon Dioxide Level 24 Anion Gap 13 Blood Urea Nitrogen 5 L Creatinine 0.27 L Glucose Level 93 Calcium Level 8.6 Medications Current Medications Ondansetron HCl (Zofran Inj) 4 mg Q6H PRN IV NAUSEA AND/OR VOMITING Last administered on 04/22/17 09:43; Admin Dose 4 MG; Start 04/21/17 at 20:00 Morphine Sulfate (morphine) 2 mg Q4H PRN IV PAIN LEVEL 7-10 Last administered on 04/24/17 09:14; Admin Dose 2 MG; Start 04/21/17 at 20:00 Lorazepam (Ativan) 1 mg Q2H PRN IV ANXIETY Last administered on 04/24/17 09: 14; Admin Dose 1 MG; Start 04/21/17 at 20:00 Famotidine 20 mg 20 mg Q12 IV Last administered on 04/24/17 09:01; Admin Dose 20 MG; Start 04/21/17 at 21:00 Piperacillin Sod/ Tazobactam Sod (Zosyn 3.375gm/ 50 ml (Pmx)) 50 ml @ 100 mls/ hr Q6H IVPB Last administered on 04/24/17 09:01; Admin Dose 100 MLS/HR; Start 04/22/17 at 09:00 Metoclopramide HCl (Reglan) 10 mg Q6 IV Last administered on 04/24/17 11:32; Admin Dose 10 MG; Start 04/22/17 at 18:00 Diagnostic Test (Pha) 1 ea 1 ea Q6 XX Last administered on 04/24/17 11:33; Admin Dose 1 EA; Start 04/23/17 at 00:00; Stop 04/24/17 at 12:00 Vancomycin HCl (Vancocin) 250 ml @ 125 mls/hr Q8 IVPB Last administered on 05:17; Admin Dose 125 MLS/HR; Start 04/23/17 at 14:00 Sodium Hypochlorite (Dakin'S (Dilute 1/40%)) 1 applic BID IRR Last administered on 04/24/17 02:47; Admin Dose 1 APPLIC; Start 04/23/17 at 14:30 Collagenase (Santyl) 1 applic DAILY TOP ; Start 04/23/17 at 16:00 Diphenhydramine HCl (Benadryl) 25 mg Q6H PRN IV Itchiness; Start 04/23/17 at 21:00 Triamcinolone Acetonide (Kenalog 0.1% Oint) 1 applic BID TOP Last administered on 04/24/17 09:01; Admin Dose 1 APPLIC; Start 04/23/17 at 21:00; Stop at 20:59 Vancomycin HCl (Vancomycin Oral Syringe) 250 mg Q6 PO Last administered on 11:32; Admin Dose 250 MG; Start 04/24/17 at 12:00 Miscellaneous Information (*Rx Drug Level Order Reminder*) VANCOMYCIN TROUGH ON 04/14... ONCE ONCE XX ; Start 04/24/17 at 21:00; Stop 04/24/17 at 21:01 Diagnostic Test (Pha) 1 ea 1 ea Q4 XX ; Start 04/24/17 at 13:00 Metronidazole (Flagyl 500 Mg (Pmx)) 100 ml @ 100 mls/hr Q8 IVPB ; Start at 14:00 Assessment/Plan Chief Complaint/Hosp Course Imp: s/p svt ileus clinically resolved. Tube feeding to be started following G-tube revision. chronic resp failure. decub stage IV. PLAN: 1. Continue mechanical ventilation. Speech therapy eval with PMV 2. Continue surgical recommendations. 3. Broad-spectrum antibiotics. 4. Wound care. 5. Deep venous thrombosis and gastrointestinal prophylaxis. Transfer back to follow. Problems: JIMMIE BARTON MD, [facility] Apr 24, 2017 11:48
--- NOTE | 2017-04-24 12:14 | PN ---
Date/Time of Note Date/Time of Note DATE: 04/24/17 TIME: 12:13 Assessment/Plan VTE Prophylaxis VTE Prophylaxis Intervention: SCD's Lines/Catheters IV Catheter Type (from Nrs): MID-LINE Assessment/Plan Chief Complaint/Hosp Course 1. Small bowel obstruction-resolved -rectal tube in place to keep feces away from sacral wound -eventual ostomy 2. PEG tube dislodgement -PEG tube was changed by GI 3. Sepsis secondary to decubitus wounds -Continue IV antibiotics -Wound care 4. Microcytic anemia secondary to anemia of chronic disease 5. VDRF -Continue vent support -Pulmonology following 6. Sacral wound: -debridement as needed -Surgical consultation appreciated -Follow-up on cultures 7. Sinus tachycardia status post amiodarone drip-resolved -Cardiology consultation appreciated -Preserved EF 8. Depression Start Zoloft 9. Hypokalemia Replete Prophylaxis: SCDs Problems: Subjective 24 Hr Interval Summary Subjective hx not possible: pt non-verbal Exam/Review of Systems Vital Signs Vitals Vital Signs Date Time Temp Pulse Resp B/P Pulse Ox O2 Delivery O2 Flow Rate FiO2 04/24/17 12:00 98.2 124 21 128/66 99 Mechanical Ventilator 04/24/17 11:20 35 Intake and Output 04/23/17 04/23/17 04/24/17 15:00 23:00 07:00 Intake Total 886.9 ml 1100 ml 1150 ml Output Total 301 ml 536 ml 890 ml Balance 585.9 ml 564 ml 260 ml Exam Constitutional: non-verbal Respiratory: clear to auscultation Cardiovascular: regular rate and rhythm Gastrointestinal: distended, soft Musculoskeletal: nl extremities to inspection Results Result Diagram: 04/24/17 0816 04/24/17 0816 Results 24 hrs Laboratory Tests Test 04/23/17 12:38 04/23/17 13:16 04/23/17 19:20 04/23/17 23:42 Sodium Level 137 Potassium Level 3.5 Chloride Level 102 Carbon Dioxide Level 25 Anion Gap 14 Blood Urea Nitrogen 9 Creatinine 0.32 L Glucose Level 99 Calcium Level 8.8 Bedside Glucose 104 113 91 Test 04/24/17 03:56 04/24/17 06:36 04/24/17 08:16 04/24/17 11:41 Bedside Glucose 97 93 104 White Blood Count 11.2 H Red Blood Count 3.24 L Hemoglobin 8.2 L Hematocrit 26.5 L Mean Corpuscular Volume 81.8 L Mean Corpuscular Hemoglobin 25.3 L Mean Corpuscular Hemoglobin Concent 30.9 L Red Cell Distribution Width 17.2 H Platelet Count 449 H Mean Platelet Volume 9.9 Neutrophils % 74.9 Lymphocytes % 16.2 Monocytes % 5.0 Eosinophils % 3.1 Basophils % 0.4 Nucleated Red Blood Cells % 0.0 Neutrophils # 8.4 H Lymphocytes # 1.8 Monocytes # 0.6 Eosinophils # 0.4 Basophils # 0.1 Nucleated Red Blood Cells # 0.0 Sodium Level 140 Potassium Level 3.1 L Chloride Level 106 Carbon Dioxide Level 24 Anion Gap 13 Blood Urea Nitrogen 5 L Creatinine 0.27 L Glucose Level 93 Calcium Level 8.6 Medications Medications Current Medications Ondansetron HCl (Zofran Inj) 4 mg Q6H PRN IV NAUSEA AND/OR VOMITING Last administered on 04/22/17 09:43; Admin Dose 4 MG; Start 04/21/17 at 20:00 Morphine Sulfate (morphine) 2 mg Q4H PRN IV PAIN LEVEL 7-10 Last administered on 04/24/17 09:14; Admin Dose 2 MG; Start 04/21/17 at 20:00 Lorazepam (Ativan) 1 mg Q2H PRN IV ANXIETY Last administered on 04/24/17 09: 14; Admin Dose 1 MG; Start 04/21/17 at 20:00 Famotidine 20 mg 20 mg Q12 IV Last administered on 04/24/17 09:01; Admin Dose 20 MG; Start 04/21/17 at 21:00 Piperacillin Sod/ Tazobactam Sod (Zosyn 3.375gm/ 50 ml (Pmx)) 50 ml @ 100 mls/ hr Q6H IVPB Last administered on 04/24/17 09:01; Admin Dose 100 MLS/HR; Start 04/22/17 at 09:00 Metoclopramide HCl 10 mg 10 mg Q6 IV Last administered on 04/24/17 11:32; Admin Dose 10 MG; Start 04/22/17 at 18:00 Vancomycin HCl (Vancocin) 250 ml @ 125 mls/hr Q8 IVPB Last administered on 05:17; Admin Dose 125 MLS/HR; Start 04/23/17 at 14:00 Sodium Hypochlorite (Dakin'S (Dilute 1/40%)) 1 applic BID IRR Last administered on 04/24/17 02:47; Admin Dose 1 APPLIC; Start 04/23/17 at 14:30 Collagenase (Santyl) 1 applic DAILY TOP ; Start 04/23/17 at 16:00 Diphenhydramine HCl (Benadryl) 25 mg Q6H PRN IV Itchiness; Start 04/23/17 at 21:00 Triamcinolone Acetonide (Kenalog 0.1% Oint) 1 applic BID TOP Last administered on 04/24/17 09:01; Admin Dose 1 APPLIC; Start 04/23/17 at 21:00; Stop at 20:59 Vancomycin HCl (Vancomycin Oral Syringe) 250 mg Q6 PO Last administered on 11:32; Admin Dose 250 MG; Start 04/24/17 at 12:00 Miscellaneous Information (*Rx Drug Level Order Reminder*) VANCOMYCIN TROUGH ON 04/14... ONCE ONCE XX ; Start 04/24/17 at 21:00; Stop 04/24/17 at 21:01 Diagnostic Test (Pha) 1 ea 1 ea Q4 XX ; Start 04/24/17 at 13:00 Metronidazole (Flagyl 500 Mg (Pmx)) 100 ml @ 100 mls/hr Q8 IVPB ; Start at 14:00 Potassium Chloride (Potassium Chloride Pwd/Soln) 40 meq ONCE ONCE GTB ; Start 04/24/17 at 12:30; Stop 04/24/17 at 12:31; Status UNV Sertraline HCl (Zoloft) 50 mg DAILY PEG ; Start 04/24/17 at 12:30; Status UNV SVEN WALLACE Apr 24, 2017 12:14
[2017-04-24] MEDS: SERTRALINE 50 MG TAB PEG SCH (12:26)
--- NOTE | 2017-04-24 12:27 | CONS ---
Date/Time of Note Date/Time of Note DATE: 04/24/17 TIME: 12:25 Assessment/Plan Assessment/Plan Chief Complaint/Hosp Course IMPRESSION: 1. Respiratory failure, vent dependent. 2. Ileus. 3. Buried bumper syndrome. 4. Decubitus ulcer. 5. Leukocytosis. 6. Quadriplegia. PLAN: GT replaced, ok to use for meds and tube feeds I got called by nurse regarding planning for colonoscopy but I am not doing this weekend and Dr. Christine did not sign out. I will let Dr. Christine know when I sign back to him tomorrow night Continue all the supportive care. Problems: Consultation Date/Type/Reason Admit Date/Time Apr 21, 2017 at 18:32 Initial Consult Date 04/22/17 Type of Consultation: GI 24 HR Interval Summary Free Text/Dictation awake, no abdominal pain, PEG intact Exam/Review of Systems Vital Signs Vitals Vital Signs Date Time Temp Pulse Resp B/P Pulse Ox O2 Delivery O2 Flow Rate FiO2 04/24/17 12:00 98.2 124 21 128/66 99 Mechanical Ventilator 04/24/17 11:20 35 Intake and Output 04/23/17 04/23/17 04/24/17 15:00 23:00 07:00 Intake Total 886.9 ml 1100 ml 1150 ml Output Total 301 ml 536 ml 890 ml Balance 585.9 ml 564 ml 260 ml Exam Constitutional: alert, obese Psych: no complaints Head: atraumatic, normocephalic Eyes: EOMI, nl conjunctiva, nl lids ENMT: nl external ears & nose, nl lips & teeth, nl nasal mucosa & septum Neck: non-tender, supple Respiratory: clear to auscultation, normal air movement Cardiovascular: nl pulses, regular rate and rhythm Gastrointestinal: bowel sounds, non-tender, other (PEG intact), soft Results Result Diagram: 04/24/17 0816 04/24/17 0816 Results 24 hrs Laboratory Tests Test 04/23/17 12:38 04/23/17 13:16 04/23/17 19:20 04/23/17 23:42 Sodium Level 137 Potassium Level 3.5 Chloride Level 102 Carbon Dioxide Level 25 Anion Gap 14 Blood Urea Nitrogen 9 Creatinine 0.32 L Glucose Level 99 Calcium Level 8.8 Bedside Glucose 104 113 91 Test 04/24/17 03:56 04/24/17 06:36 04/24/17 08:16 04/24/17 11:41 Bedside Glucose 97 93 104 White Blood Count 11.2 H Red Blood Count 3.24 L Hemoglobin 8.2 L Hematocrit 26.5 L Mean Corpuscular Volume 81.8 L Mean Corpuscular Hemoglobin 25.3 L Mean Corpuscular Hemoglobin Concent 30.9 L Red Cell Distribution Width 17.2 H Platelet Count 449 H Mean Platelet Volume 9.9 Neutrophils % 74.9 Lymphocytes % 16.2 Monocytes % 5.0 Eosinophils % 3.1 Basophils % 0.4 Nucleated Red Blood Cells % 0.0 Neutrophils # 8.4 H Lymphocytes # 1.8 Monocytes # 0.6 Eosinophils # 0.4 Basophils # 0.1 Nucleated Red Blood Cells # 0.0 Sodium Level 140 Potassium Level 3.1 L Chloride Level 106 Carbon Dioxide Level 24 Anion Gap 13 Blood Urea Nitrogen 5 L Creatinine 0.27 L Glucose Level 93 Calcium Level 8.6 Medications Medications Current Medications Ondansetron HCl (Zofran Inj) 4 mg Q6H PRN IV NAUSEA AND/OR VOMITING Last administered on 04/22/17 09:43; Admin Dose 4 MG; Start 04/21/17 at 20:00 Morphine Sulfate (morphine) 2 mg Q4H PRN IV PAIN LEVEL 7-10 Last administered on 04/24/17 09:14; Admin Dose 2 MG; Start 04/21/17 at 20:00 Lorazepam (Ativan) 1 mg Q2H PRN IV ANXIETY Last administered on 04/24/17 09: 14; Admin Dose 1 MG; Start 04/21/17 at 20:00 Famotidine 20 mg 20 mg Q12 IV Last administered on 04/24/17 09:01; Admin Dose 20 MG; Start 04/21/17 at 21:00 Piperacillin Sod/ Tazobactam Sod (Zosyn 3.375gm/ 50 ml (Pmx)) 50 ml @ 100 mls/ hr Q6H IVPB Last administered on 04/24/17 09:01; Admin Dose 100 MLS/HR; Start 04/22/17 at 09:00 Metoclopramide HCl 10 mg 10 mg Q6 IV Last administered on 04/24/17 11:32; Admin Dose 10 MG; Start 04/22/17 at 18:00 Vancomycin HCl (Vancocin) 250 ml @ 125 mls/hr Q8 IVPB Last administered on 05:17; Admin Dose 125 MLS/HR; Start 04/23/17 at 14:00 Sodium Hypochlorite (Dakin'S (Dilute 1/40%)) 1 applic BID IRR Last administered on 04/24/17 02:47; Admin Dose 1 APPLIC; Start 04/23/17 at 14:30 Collagenase (Santyl) 1 applic DAILY TOP ; Start 04/23/17 at 16:00 Diphenhydramine HCl (Benadryl) 25 mg Q6H PRN IV Itchiness; Start 04/23/17 at 21:00 Triamcinolone Acetonide (Kenalog 0.1% Oint) 1 applic BID TOP Last administered on 04/24/17 09:01; Admin Dose 1 APPLIC; Start 04/23/17 at 21:00; Stop at 20:59 Vancomycin HCl (Vancomycin Oral Syringe) 250 mg Q6 PO Last administered on 11:32; Admin Dose 250 MG; Start 04/24/17 at 12:00 Miscellaneous Information (*Rx Drug Level Order Reminder*) VANCOMYCIN TROUGH ON 04/14... ONCE ONCE XX ; Start 04/24/17 at 21:00; Stop 04/24/17 at 21:01 Diagnostic Test (Pha) 1 ea 1 ea Q4 XX ; Start 04/24/17 at 13:00 Metronidazole (Flagyl 500 Mg (Pmx)) 100 ml @ 100 mls/hr Q8 IVPB ; Start at 14:00 Potassium Chloride (Potassium Chloride Pwd/Soln) 40 meq ONCE ONCE GTB ; Start 04/24/17 at 12:30; Stop 04/24/17 at 12:31 Sertraline HCl (Zoloft) 50 mg DAILY PEG ; Start 04/24/17 at 12:30 OXANA QUARLES MD Apr 24, 2017 12:27
[2017-04-24] MEDS ORDERED: POTASSIUM CHLORIDE 20 MEQ POWDER FOR ORAL SOLN GTB ONE (12:30)
[2017-04-24] MEDS: metroNIDAZOLE 500 MG/NS (PMX) 100 ML IVPB SCH ×2 (13:18→21:20)
--- NOTE | 2017-04-24 14:38 | PN ---
Date/Time of Note Date/Time of Note DATE: 04/24/17 TIME: 14:36 Assessment/Plan Lines/Catheters IV C[facility]ter Type (from [facility]): MID-LINE Assessment/Plan Chief Complaint/Hosp Course 1. Small bowel obstruction from ?distal colon pathology: now w bowel function to rectal tube; likely resolved -colonoscopy pending per gi -rectal tube to contain feces away from sacral wound -ivf -monitor -eventual ostomy after colonoscopy 2. Gtube dislodgement -found at subq; replced by gi -monitor 3. Leukocytosis: likely 2/2 #1+/-2 +/- 6; improving -as above 4. Microcytic, hypochromic anemia: -monitor -transfuse as needed -further workup per medical team 5. VDRF -pulm toilet -respiratory treatments 6. Sacral wound: -debridement prn -local care-changed to bid -frequent turning and off-loading -low air loss mattress -vitamin c -short term zinc -optimize nutrition -cultures 7. Sinus tachycardia: s/p amio drip -per cards Thank you, Problems: Subjective 24 Hr Interval Summary Awaiting Colonoscopy by GI to evaluate the rectum prior to Colostomy. Feels much improved. Abdominal distention much improved. +bowel function per rectal tube. No fevers, chills, sob, congested cough, cp, palpitations, blanco, dizziness, n/v/d/dysuria. Exam/Review of Systems Vital Signs Vitals Vital Signs Date Time Temp Pulse Resp B/P Pulse Ox O2 Delivery O2 Flow Rate FiO2 04/24/17 14:00 105 22 131/68 98 Mechanical Ventilator 04/24/17 12:00 98.2 04/24/17 11:20 35 Intake and Output 04/23/17 04/23/17 04/24/17 14:59 22:59 06:59 Intake Total 1066.1 ml 1000 ml 1150 ml Output Total 263 ml 474 ml 790 ml Balance 803.1 ml 526 ml 360 ml Exam Free Text/Dictation Constitutional: alert, oriented Psych: anxiety Head: atraumatic, normocephalic Eyes: nl lids, nl sclera ENMT: mucosa pink and moist, nl nasal mucosa & septum Neck: non-tender, other (trach), supple Respiratory: No labored breathing Cardiovascular: rrr, sr Gastrointestinal: distended (mod ), soft, No tender Genitourinary - Male: nl penis, nl scrotum Musculoskeletal: nl extremities to inspection, No muscle tone Extremities: normal pulses, No edema Neurological: other (quadriplegia), No nl strength Skin: wounds - nurses notes and pics: sacral wound packed, malodorous, erythema periwound Results Result Diagram: 04/24/17 0816 04/24/17 0816 DEX OLIVER MD Apr 24, 2017 14:38
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
[2017-04-24] MEDS: FAMOTIDINE 20 MG TAB GTB SCH (21:20)
[2017-04-24] MEDS: ASCORBIC ACID 500 MG TAB GTB SCH (21:21)
[2017-04-25] VITALS (23 sets, daily range): BP systolic 100–112; BP diastolic 53–58; PULSE 106–130; RESP 19–31
[2017-04-25] MEDS: METOCLOPRAMIDE 10 MG INJ IV SCH ×4 (00:20→17:48)
[2017-04-25] MEDS: VANCOMYCIN HCL 250 MG/5ML POSYG PO SCH ×4 (00:21→17:47)
[2017-04-25] MEDS: ACCU-CHEK XX SCH ×6 (01:00→21:00)
[2017-04-25] MEDS: ALBUTEROL HFA 8 GM INHALER INH PRN ×3 (01:21→20:45)
[2017-04-25] MEDS: IPRATROPIUM (HFA) 12.9 GM INHALER INH PRN ×3 (01:21→20:45)
[2017-04-25] MEDS: LORAZEPAM 2 MG INJ IV PRN ×3 (02:18→11:37)
[2017-04-25] MEDS: morphine 2 MG INJ IV PRN ×4 (05:05→17:48)
[2017-04-25] MEDS: metroNIDAZOLE 500 MG/NS (PMX) 100 ML IVPB SCH ×3 (05:37→21:38)
[2017-04-25 06:37] LABS: BASOPHILS % 0.3 % (0.0-2.0); EOSINOPHILS # 0.3 10^3/ul (0.0-0.5); EOSINOPHILS % 2.3 % (0.0-7.0); HEMATOCRIT 27.9 % (42.0-52.0); HEMOGLOBIN 8.4 g/dl (14.0-18.0); LYMPHOCYTES # 2.1 10^3/ul (0.8-2.9); LYMPHOCYTES % 17.5 % (15.0-51.0); MEAN CORPUSCULAR HEMOGLOBIN 24.9 pg (29.0-33.0); MEAN CORPUSCULAR HGB CONC 30.1 g/dl (32.0-37.0); MEAN CORPUSCULAR VOLUME 82.5 fl (82.0-101.0); MEAN PLATELET VOLUME 9.9 fl (7.4-10.4); MONOCYTE # 0.6 10^3/ul (0.3-0.9); MONOCYTES % 4.9 % (0.0-11.0); NEUTROPHIL # 8.8 10^3/ul (1.6-7.5); NEUTROPHILS % 74.5 % (39.0-77.0); PLATELET COUNT 513 10^3/UL (140-415); RED BLOOD COUNT 3.38 10^6/ul (4.70-6.10); RED CELL DISTRIBUTION WIDTH 17.4 % (11.5-14.5); WHITE BLOOD COUNT 11.8 10^3/ul (4.8-10.8)
[2017-04-25 07:24] LABS: CALCIUM 8.9 mg/dl (8.4-10.2); CREATININE 0.32 mg/dl (0.61-1.24); POTASSIUM 3.5 mmol/L (3.5-5.1)
[2017-04-25] MEDS: FAMOTIDINE 20 MG TAB GTB SCH ×2 (08:44→21:38)
[2017-04-25] MEDS: ASCORBIC ACID 500 MG TAB GTB SCH ×2 (08:44→21:38)
[2017-04-25] MEDS: ZINC SULFATE 220 MG CAP GTB SCH (08:44)
[2017-04-25] MEDS: SERTRALINE 50 MG TAB PEG SCH (08:44)
[2017-04-25] MEDS: SODIUM HYPOCHLORITE 1/40% 1L IRRIG IRR SCH ×2 (09:00→21:38)
[2017-04-25] MEDS: MULTIVITAMINS 30 ML CUP GTB SCH (09:00)
[2017-04-25] MEDS: COLLAGENASE 30 GM TUBE TOP SCH (09:00)
--- NOTE | 2017-04-25 11:30 | CONS ---
Date/Time of Note Date/Time of Note DATE: 04/25/17 TIME: 11:27 Assessment/Plan Assessment/Plan Chief Complaint/Hosp Course IMPRESSION: 1. Respiratory failure, vent dependent. 2. Ileus. 3. Buried bumper syndrome. 4. Decubitus ulcer. 5. Leukocytosis. 6. Quadriplegia. PLAN: GT replaced, ok to use for meds and tube feeds I got called by nurse regarding planning for colonoscopy but I am not doing this weekend and Dr. Christine did not sign out to me that colonoscopy is needed. Will clarify tonight when I sign out to Dr. Christine Continue all the supportive care. Dr. Christine to resume care of this patient tomorrow Problems: Consultation Date/Type/Reason Admit Date/Time Apr 21, 2017 at 18:32 Initial Consult Date 04/22/17 Type of Consultation: GI 24 HR Interval Summary Free Text/Dictation no n/v, tolerating po Exam/Review of Systems Vital Signs Vitals Vital Signs Date Time Temp Pulse Resp B/P Pulse Ox O2 Delivery O2 Flow Rate FiO2 04/25/17 09:23 111 24 97 35 04/25/17 07:46 100.2 111/53 04/24/17 16:00 Mechanical Ventilator Intake and Output 04/24/17 04/24/17 04/25/17 15:00 23:00 07:00 Intake Total 830 ml 370 ml 930 ml Output Total 1250 ml 100 ml 1800 ml Balance -420 ml 270 ml -870 ml Exam Constitutional: non-verbal Head: atraumatic, normocephalic Eyes: EOMI, nl conjunctiva, nl lids ENMT: nl external ears & nose, nl lips & teeth, nl nasal mucosa & septum Neck: non-tender, supple Respiratory: clear to auscultation, normal air movement Cardiovascular: nl pulses, regular rate and rhythm Gastrointestinal: bowel sounds, non-tender, soft Results Result Diagram: 04/25/17 0547 04/25/17 0547 Results 24 hrs Laboratory Tests Test 04/24/17 11:41 04/24/17 17:00 04/24/17 18:19 04/24/17 21:10 Bedside Glucose 104 92 84 86 Test 04/25/17 05:35 04/25/17 05:47 04/25/17 09:09 Bedside Glucose 100 112 White Blood Count 11.8 H Red Blood Count 3.38 L Hemoglobin 8.4 L Hematocrit 27.9 L Mean Corpuscular Volume 82.5 Mean Corpuscular Hemoglobin 24.9 L Mean Corpuscular Hemoglobin Concent 30.1 L Red Cell Distribution Width 17.4 H Platelet Count 513 H Mean Platelet Volume 9.9 Neutrophils % 74.5 Lymphocytes % 17.5 Monocytes % 4.9 Eosinophils % 2.3 Basophils % 0.3 Nucleated Red Blood Cells % 0.0 Neutrophils # 8.8 H Lymphocytes # 2.1 Monocytes # 0.6 Eosinophils # 0.3 Basophils # 0.0 Nucleated Red Blood Cells # 0.0 Sodium Level 143 Potassium Level 3.5 Chloride Level 109 Carbon Dioxide Level 25 Anion Gap 13 Blood Urea Nitrogen 5 L Creatinine 0.32 L Glucose Level 96 Calcium Level 8.9 Medications Medications Current Medications Ondansetron HCl (Zofran Inj) 4 mg Q6H PRN IV NAUSEA AND/OR VOMITING Last administered on 04/22/17 09:43; Admin Dose 4 MG; Start 04/21/17 at 20:00 Morphine Sulfate (morphine) 2 mg Q4H PRN IV PAIN LEVEL 7-10 Last administered on 04/25/17 09:05; Admin Dose 2 MG; Start 04/21/17 at 20:00 Lorazepam (Ativan) 1 mg Q2H PRN IV ANXIETY Last administered on 04/25/17 08: 44; Admin Dose 1 MG; Start 04/21/17 at 20:00 Metoclopramide HCl (Reglan) 10 mg Q6 IV Last administered on 04/25/17 05:37; Admin Dose 10 MG; Start 04/22/17 at 18:00 Sodium Hypochlorite (Dakin'S (Dilute 1/40%)) 1 applic BID IRR Last administered on 04/24/17 21:21; Admin Dose 1 APPLIC; Start 04/23/17 at 14:30 Collagenase (Santyl) 1 applic DAILY TOP ; Start 04/23/17 at 16:00 Diphenhydramine HCl (Benadryl) 25 mg Q6H PRN IV Itchiness; Start 04/23/17 at 21:00 Vancomycin HCl (Vancomycin Oral Syringe) 250 mg Q6 PO Last administered on 05:37; Admin Dose 250 MG; Start 04/24/17 at 12:00 Diagnostic Test (Pha) 1 ea 1 ea Q4 XX Last administered on 04/25/17 09:05; Admin Dose 1 EA; Start 04/24/17 at 13:00 Metronidazole (Flagyl 500 Mg (Pmx)) 100 ml @ 100 mls/hr Q8 IVPB Last administered on 04/25/17 05:37; Admin Dose 100 MLS/HR; Start 04/24/17 at 14: 00 Sertraline HCl (Zoloft) 50 mg DAILY PEG Last administered on 04/25/17 08:44; Admin Dose 50 MG; Start 04/24/17 at 12:30 Zinc Sulfate (Zinc Sulfate) 220 mg DAILY GTB Last administered on 04/25/17 08 :44; Admin Dose 220 MG; Start 04/25/17 at 09:00 Ascorbic Acid (Vitamin C) 500 mg BID GTB Last administered on 04/25/17 08:44 ; Admin Dose 500 MG; Start 04/24/17 at 21:00 Multivitamins (Multivitamin) 30 ml DAILY GTB ; Start 04/25/17 at 09:00 Famotidine (Pepcid) 20 mg BID GTB Last administered on 04/25/17 08:44; Admin Dose 20 MG; Start 04/24/17 at 21:00 OXANA QUARLES MD Apr 25, 2017 11:30
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
--- NOTE | 2017-04-25 12:57 | CONS ---
Date/Time of Note Date/Time of Note DATE: 04/25/17 TIME: 12:57 Consult Date/Type/Reason Admit Date/Time Apr 21, 2017 at 18:32 Initial Consult Date 04/22/17 Type of Consultation: Pulmonary Subjective Patient comfortable this morning. Objective Vital Signs Date Time Temp Pulse Resp B/P Pulse Ox O2 Delivery O2 Flow Rate FiO2 04/25/17 12:26 98.5 119 28 112/56 92 04/25/17 11:48 35 04/24/17 16:00 Mechanical Ventilator Intake and Output 04/24/17 04/24/17 04/25/17 15:00 23:00 07:00 Intake Total 830 ml 370 ml 930 ml Output Total 1250 ml 100 ml 1800 ml Balance -420 ml 270 ml -870 ml Exam PHYSICAL EXAMINATION: GENERAL: Anxious gentleman, appears comfortable at rest, no acute distress. VITAL SIGNS: NECK: Trach site clean and intact. CARDIAC: S1, S2, no added sounds or murmurs. CHEST: Diminished air entry bilaterally. ABDOMEN: Soft, nontender. No guarding or rebound. EXTREMITIES: No cyanosis, clubbing, 1+ edema. NEUROLOGIC: Generalized weakness. Stage IV decubitus ulcer Results/Medications Result Diagram: 04/25/17 0547 04/25/17 0547 Results 24 hrs Laboratory Tests Test 04/24/17 17:00 04/24/17 18:19 04/24/17 21:10 04/25/17 05:35 Bedside Glucose 92 84 86 100 Test 04/25/17 05:47 04/25/17 09:09 White Blood Count 11.8 H Red Blood Count 3.38 L Hemoglobin 8.4 L Hematocrit 27.9 L Mean Corpuscular Volume 82.5 Mean Corpuscular Hemoglobin 24.9 L Mean Corpuscular Hemoglobin Concent 30.1 L Red Cell Distribution Width 17.4 H Platelet Count 513 H Mean Platelet Volume 9.9 Neutrophils % 74.5 Lymphocytes % 17.5 Monocytes % 4.9 Eosinophils % 2.3 Basophils % 0.3 Nucleated Red Blood Cells % 0.0 Neutrophils # 8.8 H Lymphocytes # 2.1 Monocytes # 0.6 Eosinophils # 0.3 Basophils # 0.0 Nucleated Red Blood Cells # 0.0 Sodium Level 143 Potassium Level 3.5 Chloride Level 109 Carbon Dioxide Level 25 Anion Gap 13 Blood Urea Nitrogen 5 L Creatinine 0.32 L Glucose Level 96 Calcium Level 8.9 Bedside Glucose 112 Medications Current Medications Ondansetron HCl (Zofran Inj) 4 mg Q6H PRN IV NAUSEA AND/OR VOMITING Last administered on 04/22/17 09:43; Admin Dose 4 MG; Start 04/21/17 at 20:00 Morphine Sulfate (morphine) 2 mg Q4H PRN IV PAIN LEVEL 7-10 Last administered on 04/25/17 09:05; Admin Dose 2 MG; Start 04/21/17 at 20:00 Lorazepam (Ativan) 1 mg Q2H PRN IV ANXIETY Last administered on 04/25/17 11: 37; Admin Dose 1 MG; Start 04/21/17 at 20:00 Metoclopramide HCl (Reglan) 10 mg Q6 IV Last administered on 04/25/17 11:37; Admin Dose 10 MG; Start 04/22/17 at 18:00 Sodium Hypochlorite (Dakin'S (Dilute 1/40%)) 1 applic BID IRR Last administered on 04/25/17 09:00; Admin Dose 1 APPLIC; Start 04/23/17 at 14:30 Collagenase (Santyl) 1 applic DAILY TOP Last administered on 04/25/17 09:00; Admin Dose 1 APPLIC; Start 04/23/17 at 16:00 Diphenhydramine HCl (Benadryl) 25 mg Q6H PRN IV Itchiness; Start 04/23/17 at 21:00 Vancomycin HCl (Vancomycin Oral Syringe) 250 mg Q6 PO Last administered on 11:38; Admin Dose 250 MG; Start 04/24/17 at 12:00 Diagnostic Test (Pha) 1 ea 1 ea Q4 XX Last administered on 04/25/17 09:05; Admin Dose 1 EA; Start 04/24/17 at 13:00 Metronidazole (Flagyl 500 Mg (Pmx)) 100 ml @ 100 mls/hr Q8 IVPB Last administered on 04/25/17 05:37; Admin Dose 100 MLS/HR; Start 04/24/17 at 14: 00 Sertraline HCl (Zoloft) 50 mg DAILY PEG Last administered on 04/25/17 08:44; Admin Dose 50 MG; Start 04/24/17 at 12:30 Zinc Sulfate (Zinc Sulfate) 220 mg DAILY GTB Last administered on 04/25/17 08 :44; Admin Dose 220 MG; Start 04/25/17 at 09:00 Ascorbic Acid (Vitamin C) 500 mg BID GTB Last administered on 04/25/17 08:44 ; Admin Dose 500 MG; Start 04/24/17 at 21:00 Multivitamins (Multivitamin) 30 ml DAILY GTB ; Start 04/25/17 at 09:00 Famotidine (Pepcid) 20 mg BID GTB Last administered on 04/25/17 08:44; Admin Dose 20 MG; Start 04/24/17 at 21:00 Assessment/Plan Chief Complaint/Hosp Course Imp: s/p svt ileus clinically resolved. Tube feeding to be started following G-tube revision. chronic resp failure. decub stage IV. PLAN: 1. Continue mechanical ventilation. Speech therapy eval with PMV 2. Continue surgical recommendations. 3. Broad-spectrum antibiotics. 4. Wound care. 5. Deep venous thrombosis and gastrointestinal prophylaxis. Transfer back to follow. Problems: JIMMIE BARTON MD, [facility] Apr 25, 2017 12:57
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
--- NOTE | 2017-04-25 17:56 | PN ---
Date/Time of Note Date/Time of Note DATE: 04/25/17 TIME: 17:52 Assessment/Plan Lines/Catheters IV Catheter Type (from [facility]): MID-LINE Schumacher in Place (from [facility]): Yes Assessment/Plan Chief Complaint/Hosp Course 1. Small bowel obstruction from ?distal colon pathology: now w bowel function to rectal tube; likely resolved -colonoscopy pending per gi -rectal tube to contain feces away from sacral wound -ivf -monitor -eventual ostomy after colonoscopy 2. Gtube dislodgement -found at subq; replaced by gi -monitor 3. Leukocytosis: likely 2/2 #1+/-2 +/- 6, min temp today -as above 4. Microcytic, hypochromic anemia: -monitor -transfuse as needed -further workup per medical team 5. VDRF -pulm toilet -respiratory treatments 6. Sacral wound: -debridement prn -local care bid -frequent turning and off-loading -low air loss mattress -vitamin c -short term zinc -optimize nutrition -cultures 7. Sinus tachycardia: s/p amio drip -per cards Thank you. Patient seen and examined in collaboration with Dr. Kevin Rushing. Problems: Subjective 24 Hr Interval Summary Min temp. Tachycardia. Pending colonoscopy. No fevers, chills, sob, congested cough, cp, palpitations, blanco, dizziness, n/v/d/dysuria. +bowel function. Exam/Review of Systems Vital Signs Vitals Vital Signs Date Time Temp Pulse Resp B/P Pulse Ox O2 Delivery O2 Flow Rate FiO2 04/25/17 17:22 104 20 98 35 04/25/17 15:48 98.8 100/54 04/24/17 16:00 Mechanical Ventilator Intake and Output 04/24/17 04/24/17 04/25/17 15:00 23:00 07:00 Intake Total 830 ml 370 ml 930 ml Output Total 1250 ml 100 ml 1800 ml Balance -420 ml 270 ml -870 ml Exam Free Text/Dictation Constitutional: alert, oriented Psych: anxiety Head: atraumatic, normocephalic Eyes: nl lids, nl sclera ENMT: mucosa pink and moist, nl nasal mucosa & septum Neck: non-tender, other (trach), supple Respiratory: No labored breathing Cardiovascular: rrr, sr Gastrointestinal: distended (mod ), soft, No tender Genitourinary - Male: nl penis, nl scrotum Musculoskeletal: nl extremities to inspection, No muscle tone Extremities: normal pulses, No edema Neurological: other (quadriplegia), No nl strength Skin: wounds - nurses notes and pics: sacral wound packed, malodorous, erythema periwound Results Result Diagram: 04/25/17 0547 04/25/17 0547 REGINO GLOVER NP Apr 25, 2017 17:55
--- NOTE | 2017-04-25 19:12 | PN ---
Date/Time of Note Date/Time of Note DATE: 04/25/17 TIME: 19:10 Assessment/Plan VTE Prophylaxis VTE Prophylaxis Intervention: SCD's Lines/Catheters IV Catheter Type (from Nrs): MID-LINE Assessment/Plan Chief Complaint/Hosp Course 1. Small bowel obstruction-resolved -rectal tube in place to keep feces away from sacral wound -eventual ostomy 2. PEG tube dislodgement -PEG tube was changed by GI 3. Sepsis secondary to decubitus wounds -Continue IV antibiotics with Flagyl and vancomycin -Wound care 4. Microcytic anemia secondary to anemia of chronic disease 5. VDRF -Continue vent support -Pulmonology following 6. Sacral wound: -debridement as needed -Surgical consultation appreciated -Follow-up on cultures -ID following -Continue IV antibiotics 7. Sinus tachycardia status post amiodarone drip-resolved -Cardiology consultation appreciated -Preserved EF 8. Depression Have started Zoloft 9. Hypokalemia Repleted Prophylaxis: SCDs Problems: Subjective 24 Hr Interval Summary Constitutional: no complaints Exam/Review of Systems Vital Signs Vitals Vital Signs Date Time Temp Pulse Resp B/P Pulse Ox O2 Delivery O2 Flow Rate FiO2 04/25/17 17:22 104 20 98 35 04/25/17 15:48 98.8 100/54 04/24/17 16:00 Mechanical Ventilator Intake and Output 04/24/17 04/24/17 04/25/17 14:59 22:59 06:59 Intake Total 760 ml 540 ml 930 ml Output Total 1350 ml 200 ml 1800 ml Balance -590 ml 340 ml -870 ml Exam Constitutional: alert Respiratory: clear to auscultation Cardiovascular: regular rate and rhythm Gastrointestinal: soft, No distended Musculoskeletal: nl extremities to inspection Results Result Diagram: 04/25/17 0547 04/25/17 0547 Results 24 hrs Laboratory Tests Test 04/24/17 21:10 04/25/17 05:35 04/25/17 05:47 04/25/17 09:09 Bedside Glucose 86 100 112 White Blood Count 11.8 H Red Blood Count 3.38 L Hemoglobin 8.4 L Hematocrit 27.9 L Mean Corpuscular Volume 82.5 Mean Corpuscular Hemoglobin 24.9 L Mean Corpuscular Hemoglobin Concent 30.1 L Red Cell Distribution Width 17.4 H Platelet Count 513 H Mean Platelet Volume 9.9 Neutrophils % 74.5 Lymphocytes % 17.5 Monocytes % 4.9 Eosinophils % 2.3 Basophils % 0.3 Nucleated Red Blood Cells % 0.0 Neutrophils # 8.8 H Lymphocytes # 2.1 Monocytes # 0.6 Eosinophils # 0.3 Basophils # 0.0 Nucleated Red Blood Cells # 0.0 Sodium Level 143 Potassium Level 3.5 Chloride Level 109 Carbon Dioxide Level 25 Anion Gap 13 Blood Urea Nitrogen 5 L Creatinine 0.32 L Glucose Level 96 Calcium Level 8.9 Test 04/25/17 13:39 04/25/17 17:53 Bedside Glucose 119 102 Medications Medications Current Medications Ondansetron HCl (Zofran Inj) 4 mg Q6H PRN IV NAUSEA AND/OR VOMITING Last administered on 04/22/17 09:43; Admin Dose 4 MG; Start 04/21/17 at 20:00 Morphine Sulfate (morphine) 2 mg Q4H PRN IV PAIN LEVEL 7-10 Last administered on 04/25/17 17:48; Admin Dose 2 MG; Start 04/21/17 at 20:00 Lorazepam (Ativan) 1 mg Q2H PRN IV ANXIETY Last administered on 04/25/17 11: 37; Admin Dose 1 MG; Start 04/21/17 at 20:00 Metoclopramide HCl (Reglan) 10 mg Q6 IV Last administered on 04/25/17 17:48; Admin Dose 10 MG; Start 04/22/17 at 18:00 Sodium Hypochlorite (Dakin'S (Dilute 1/40%)) 1 applic BID IRR Last administered on 04/25/17 09:00; Admin Dose 1 APPLIC; Start 04/23/17 at 14:30 Collagenase (Santyl) 1 applic DAILY TOP Last administered on 04/25/17 09:00; Admin Dose 1 APPLIC; Start 04/23/17 at 16:00 Diphenhydramine HCl (Benadryl) 25 mg Q6H PRN IV Itchiness; Start 04/23/17 at 21:00 Vancomycin HCl (Vancomycin Oral Syringe) 250 mg Q6 PO Last administered on 17:47; Admin Dose 250 MG; Start 04/24/17 at 12:00 Diagnostic Test (Pha) 1 ea 1 ea Q4 XX Last administered on 04/25/17 17:49; Admin Dose 1 EA; Start 04/24/17 at 13:00 Metronidazole (Flagyl 500 Mg (Pmx)) 100 ml @ 100 mls/hr Q8 IVPB Last administered on 04/25/17 13:34; Admin Dose 100 MLS/HR; Start 04/24/17 at 14: 00 Sertraline HCl (Zoloft) 50 mg DAILY PEG Last administered on 04/25/17 08:44; Admin Dose 50 MG; Start 04/24/17 at 12:30 Zinc Sulfate (Zinc Sulfate) 220 mg DAILY GTB Last administered on 04/25/17 08 :44; Admin Dose 220 MG; Start 04/25/17 at 09:00 Ascorbic Acid (Vitamin C) 500 mg BID GTB Last administered on 04/25/17 08:44 ; Admin Dose 500 MG; Start 04/24/17 at 21:00 Multivitamins (Multivitamin) 30 ml DAILY GTB Last administered on 04/25/17 09 :00; Admin Dose 30 ML; Start 04/25/17 at 09:00 Famotidine (Pepcid) 20 mg BID GTB Last administered on 04/25/17 08:44; Admin Dose 20 MG; Start 04/24/17 at 21:00 SVEN WALLACE Apr 25, 2017 19:12
[2017-04-26] VITALS (24 sets, daily range): BP systolic 93–114; BP diastolic 54–65; PULSE 99–118; RESP 18–30
[2017-04-26] MEDS: morphine 2 MG INJ IV PRN ×5 (00:19→21:17)
[2017-04-26] MEDS: VANCOMYCIN HCL 250 MG/5ML POSYG PO SCH ×5 (00:20→23:36)
[2017-04-26] MEDS: METOCLOPRAMIDE 10 MG INJ IV SCH ×5 (00:20→23:36)
[2017-04-26] MEDS: ACCU-CHEK XX SCH ×6 (01:00→21:30)
[2017-04-26] MEDS: LORAZEPAM 2 MG INJ IV PRN ×4 (01:40→21:18)
[2017-04-26] MEDS: IPRATROPIUM (HFA) 12.9 GM INHALER INH PRN ×2 (04:38→18:23)
[2017-04-26] MEDS: ALBUTEROL HFA 8 GM INHALER INH PRN ×2 (04:38→18:25)
[2017-04-26] MEDS: metroNIDAZOLE 500 MG/NS (PMX) 100 ML IVPB SCH ×3 (05:57→21:18)
[2017-04-26 07:43] LABS: BASOPHILS % 0.3 % (0.0-2.0); EOSINOPHILS # 0.3 10^3/ul (0.0-0.5); EOSINOPHILS % 2.2 % (0.0-7.0); HEMATOCRIT 25.9 % (42.0-52.0); HEMOGLOBIN 7.6 g/dl (14.0-18.0); LYMPHOCYTES # 2.7 10^3/ul (0.8-2.9); LYMPHOCYTES % 19.7 % (15.0-51.0); MEAN CORPUSCULAR HEMOGLOBIN 24.2 pg (29.0-33.0); MEAN CORPUSCULAR HGB CONC 29.3 g/dl (32.0-37.0); MEAN CORPUSCULAR VOLUME 82.5 fl (82.0-101.0); MEAN PLATELET VOLUME 9.7 fl (7.4-10.4); MONOCYTE # 0.7 10^3/ul (0.3-0.9); MONOCYTES % 5.1 % (0.0-11.0); NEUTROPHIL # 9.7 10^3/ul (1.6-7.5); NEUTROPHILS % 72.3 % (39.0-77.0); PLATELET COUNT 477 10^3/UL (140-415); RED BLOOD COUNT 3.14 10^6/ul (4.70-6.10); RED CELL DISTRIBUTION WIDTH 17.8 % (11.5-14.5); WHITE BLOOD COUNT 13.4 10^3/ul (4.8-10.8)
[2017-04-26 08:02] LABS: CREATININE 0.34 mg/dl (0.61-1.24); MAGNESIUM 1.8 mg/dl (1.7-2.5)
[2017-04-26 08:25] LABS: CALCIUM 8.6 mg/dl (8.4-10.2); POTASSIUM 3.2 mmol/L (3.5-5.1)
[2017-04-26] MEDS: SODIUM HYPOCHLORITE 1/40% 1L IRRIG IRR SCH ×2 (09:00→21:22)
[2017-04-26] MEDS: COLLAGENASE 30 GM TUBE TOP SCH (09:00)
[2017-04-26] MEDS: ASCORBIC ACID 500 MG TAB GTB SCH ×2 (09:51→21:18)
[2017-04-26] MEDS: ZINC SULFATE 220 MG CAP GTB SCH (09:51)
[2017-04-26] MEDS: FAMOTIDINE 20 MG TAB GTB SCH ×2 (09:51→21:18)
[2017-04-26] MEDS: MULTIVITAMINS 30 ML CUP GTB SCH (09:51)
[2017-04-26] MEDS: SERTRALINE 50 MG TAB PEG SCH (09:51)
--- NOTE | 2017-04-26 11:30 | PN ---
Date/Time of Note Date/Time of Note DATE: 04/26/17 TIME: 11:28 Assessment/Plan [facility] Assessment/Plan Chief Complaint/Hosp Course 1. Small bowel obstruction from ?distal colon pathology: now w bowel function to rectal tube; likely resolved -colonoscopy pending per gi -rectal tube to contain feces away from sacral wound -ivf -monitor -eventual ostomy after colonoscopy 2. Gtube dislodgement -found at subq; replced by gi -monitor 3. Leukocytosis: likely 2/2 #1+/-2 +/- 6; -as above 4. Microcytic, hypochromic anemia: -monitor -transfuse as needed -further workup per medical team 5. VDRF -pulm toilet -respiratory treatments 6. Sacral wound: -debridement prn -local care-changed to bid -frequent turning and off-loading -low air loss mattress -vitamin c -short term zinc -optimize nutrition -cultures 7. Sinus tachycardia: s/p amio drip -per cards Thank you, Problems: Subjective 24 Hr Interval Summary Min temp. Tachycardia. Pending colonoscopy. No fevers, chills, sob, congested cough, cp, palpitations, blanco, dizziness, n/v/d/dysuria. +bowel function. Exam/Review of Systems Vital Signs Vitals Vital Signs Date Time Temp Pulse Resp B/P Pulse Ox O2 Delivery O2 Flow Rate FiO2 04/26/17 11:03 119 30 96 35 04/26/17 08:01 Mechanical Ventilator 04/26/17 07:02 98.9 93/54 Intake and Output 04/25/17 04/25/17 04/26/17 15:00 23:00 07:00 Intake Total 1020 ml Output Total 1000 ml Balance 20 ml Exam Free Text/Dictation Constitutional: alert, oriented Psych: anxiety Head: atraumatic, normocephalic Eyes: nl lids, nl sclera ENMT: mucosa pink and moist, nl nasal mucosa & septum Neck: non-tender, other (trach), supple Respiratory: No labored breathing Cardiovascular: rrr, sr Gastrointestinal: distended (mod ), soft, No tender Genitourinary - Male: nl penis, nl scrotum Musculoskeletal: nl extremities to inspection, No muscle tone Extremities: normal pulses, No edema Neurological: other (quadriplegia), No nl strength Skin: wounds - nurses notes and pics: sacral wound packed, malodorous, erythema periwound Results Result Diagram: 04/26/17 0711 04/26/17 0711 DEX OLIVER MD Apr 26, 2017 11:30
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
[2017-04-26] MEDS ORDERED: AMIKACIN IV PER PHARMACY XX SCH (14:00)
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
--- NOTE | 2017-04-26 15:09 | CONS ---
Date/Time of Note Date/Time of Note DATE: 04/26/17 TIME: 15:08 Consult Date/Type/Reason Admit Date/Time Apr 21, 2017 at 18:32 Initial Consult Date 04/22/17 Type of Consultation: Pulm Subjective Patient awake alert oriented today no shortness of breath. Objective Vital Signs Date Time Temp Pulse Resp B/P Pulse Ox O2 Delivery O2 Flow Rate FiO2 04/26/17 13:00 106 20 97 35 04/26/17 12:55 Mechanical Ventilator 04/26/17 11:57 98.9 114/65 Intake and Output 04/25/17 04/25/17 04/26/17 15:00 23:00 07:00 Intake Total 1020 ml Output Total 1000 ml Balance 20 ml Exam PHYSICAL EXAMINATION: GENERAL: Anxious gentleman, appears comfortable at rest, no acute distress. VITAL SIGNS: NECK: Trach site clean and intact. CARDIAC: S1, S2, no added sounds or murmurs. CHEST: Diminished air entry bilaterally. ABDOMEN: Soft, nontender. No guarding or rebound. EXTREMITIES: No cyanosis, clubbing, 1+ edema. NEUROLOGIC: Generalized weakness. Stage IV decubitus ulcer Results/Medications Result Diagram: 04/26/17 0711 04/26/17 0711 Results 24 hrs Laboratory Tests Test 04/25/17 17:53 04/25/17 20:05 04/26/17 04:45 04/26/17 07:11 Bedside Glucose 102 114 100 White Blood Count 13.4 H Red Blood Count 3.14 L Hemoglobin 7.6 L Hematocrit 25.9 L Mean Corpuscular Volume 82.5 Mean Corpuscular Hemoglobin 24.2 L Mean Corpuscular Hemoglobin Concent 29.3 L Red Cell Distribution Width 17.8 H Platelet Count 477 H Mean Platelet Volume 9.7 Neutrophils % 72.3 Lymphocytes % 19.7 Monocytes % 5.1 Eosinophils % 2.2 Basophils % 0.3 Nucleated Red Blood Cells % 0.0 Neutrophils # 9.7 H Lymphocytes # 2.7 Monocytes # 0.7 Eosinophils # 0.3 Basophils # 0.0 Nucleated Red Blood Cells # 0.0 Sodium Level 142 Potassium Level 3.2 L Chloride Level 105 Carbon Dioxide Level 26 Anion Gap 14 Blood Urea Nitrogen 7 Creatinine 0.34 L Glucose Level 104 Calcium Level 8.6 Magnesium Level 1.8 Test 04/26/17 09:53 04/26/17 12:36 Bedside Glucose 115 118 Medications Current Medications Ondansetron HCl (Zofran Inj) 4 mg Q6H PRN IV NAUSEA AND/OR VOMITING Last administered on 04/22/17 09:43; Admin Dose 4 MG; Start 04/21/17 at 20:00 Morphine Sulfate (morphine) 2 mg Q4H PRN IV PAIN LEVEL 7-10 Last administered on 04/26/17 12:39; Admin Dose 2 MG; Start 04/21/17 at 20:00 Lorazepam (Ativan) 1 mg Q2H PRN IV ANXIETY Last administered on 04/26/17 12: 25; Admin Dose 1 MG; Start 04/21/17 at 20:00 Metoclopramide HCl (Reglan) 10 mg Q6 IV Last administered on 04/26/17 12:25; Admin Dose 10 MG; Start 04/22/17 at 18:00 Sodium Hypochlorite (Dakin'S (Dilute 1/40%)) 1 applic BID IRR Last administered on 04/25/17 21:38; Admin Dose 1 APPLIC; Start 04/23/17 at 14:30 Collagenase (Santyl) 1 applic DAILY TOP Last administered on 04/25/17 09:00; Admin Dose 1 APPLIC; Start 04/23/17 at 16:00 Diphenhydramine HCl (Benadryl) 25 mg Q6H PRN IV Itchiness; Start 04/23/17 at 21:00 Vancomycin HCl (Vancomycin Oral Syringe) 250 mg Q6 PO Last administered on 12:25; Admin Dose 250 MG; Start 04/24/17 at 12:00 Diagnostic Test (Pha) 1 ea 1 ea Q4 XX Last administered on 04/25/17 17:49; Admin Dose 1 EA; Start 04/24/17 at 13:00 Metronidazole (Flagyl 500 Mg (Pmx)) 100 ml @ 100 mls/hr Q8 IVPB Last administered on 04/26/17 14:30; Admin Dose 100 MLS/HR; Start 04/24/17 at 14: 00 Sertraline HCl (Zoloft) 50 mg DAILY PEG Last administered on 04/26/17 09:51; Admin Dose 50 MG; Start 04/24/17 at 12:30 Zinc Sulfate (Zinc Sulfate) 220 mg DAILY GTB Last administered on 04/26/17 09 :51; Admin Dose 220 MG; Start 04/25/17 at 09:00 Ascorbic Acid (Vitamin C) 500 mg BID GTB Last administered on 04/26/17 09:51 ; Admin Dose 500 MG; Start 04/24/17 at 21:00 Multivitamins (Multivitamin) 30 ml DAILY GTB Last administered on 04/26/17 09 :51; Admin Dose 30 ML; Start 04/25/17 at 09:00 Famotidine (Pepcid) 20 mg BID GTB Last administered on 04/26/17 09:51; Admin Dose 20 MG; Start 04/24/17 at 21:00 Influenza Virus Vaccine 0.5 ml 0.5 ml ONCE ONCE IM* ; Start 04/27/17 at 11:00; Stop 04/27/17 at 11:01 Daptomycin/Sodium Chloride (Cubicin/NS) 100 ml @ 200 mls/hr Q24H IVPB ; Start 04/26/17 at 16:00 Amikacin Sulfate AMIKACIN PER PHARMACY NOTE XX ; Start 04/26/17 at 14:00 Amikacin Sulfate/ Sodium Chloride (Amikacin/NS) 254 ml @ 254 mls/hr Q24H IVPB ; Start 04/26/17 at 17:00 Assessment/Plan Chief Complaint/Hosp Course Imp: s/p svt ileus clinically resolved. Tube feeding to be started following G-tube revision. chronic resp failure. decub stage IV. PLAN: 1. Continue mechanical ventilation. Speech therapy eval with PMV 2. Continue surgical recommendations. 3. Broad-spectrum antibiotics. 4. Wound care. 5. Deep venous thrombosis and gastrointestinal prophylaxis. Transfer back to follow. Problems: JIMMIE BARTON MD, [facility] Apr 26, 2017 15:08
[2017-04-26] MEDS: DAPTOMYCIN IVPB SCH (16:26)
[2017-04-26] MEDS: SOD CHLORIDE 0.9% IVPB SCH (16:26)
[2017-04-26] MEDS ORDERED: POTASSIUM CHLORIDE (SR) 20 MEQ TAB PO STA (16:37)
--- NOTE | 2017-04-26 16:37 | PN ---
Date/Time of Note Date/Time of Note DATE: 04/26/17 TIME: 16:36 Assessment/Plan VTE Prophylaxis VTE Prophylaxis Intervention: other Lines/Catheters IV Catheter Type (from Nrsg): MIDLINE ACCESS Assessment/Plan Chief Complaint/Hosp Course 26 yo male wtih quadriplegia admitted for SBO SBO: - Resolved -rectal tube in place to keep feces away from sacral wound -eventual ostomy 2. PEG tube dislodgement -PEG tube was changed by GI 3. Sepsis secondary to decubitus wounds -Continue IV antibiotics with Flagyl and vancomycin -Wound care 4. Microcytic anemia secondary to anemia of chronic disease 5. VDRF -Continue vent support -Pulmonology following 6. Sacral wound: -debridement as needed -Surgical consultation appreciated -Follow-up on cultures -ID following -Continue IV antibiotics 7. Sinus tachycardia status post amiodarone drip-resolved -Cardiology consultation appreciated -Preserved EF 8. Depression Have started Zoloft 9. Hypokalemia Repleted Problems: Subjective 24 Hr Interval Summary Free Text/Dictation Complins of anxiety, says "i've been in the [facility] so long" Ileus resolved, pendign transfer Exam/Review of Systems Vital Signs Vitals Vital Signs Date Time Temp Pulse Resp B/P Pulse Ox O2 Delivery O2 Flow Rate FiO2 04/26/17 16:23 103 04/26/17 15:55 98.9 18 102/55 100 04/26/17 15:10 35 04/26/17 12:55 Mechanical Ventilator Intake and Output 04/25/17 04/25/17 04/26/17 15:00 23:00 07:00 Intake Total 1020 ml Output Total 1000 ml Balance 20 ml Exam MV via trach Quadraplegic Results Result Diagram: 04/26/17 0711 04/26/17 0711 Results 24 hrs Laboratory Tests Test 04/25/17 17:53 04/25/17 20:05 04/26/17 04:45 04/26/17 07:11 Bedside Glucose 102 114 100 White Blood Count 13.4 H Red Blood Count 3.14 L Hemoglobin 7.6 L Hematocrit 25.9 L Mean Corpuscular Volume 82.5 Mean Corpuscular Hemoglobin 24.2 L Mean Corpuscular Hemoglobin Concent 29.3 L Red Cell Distribution Width 17.8 H Platelet Count 477 H Mean Platelet Volume 9.7 Neutrophils % 72.3 Lymphocytes % 19.7 Monocytes % 5.1 Eosinophils % 2.2 Basophils % 0.3 Nucleated Red Blood Cells % 0.0 Neutrophils # 9.7 H Lymphocytes # 2.7 Monocytes # 0.7 Eosinophils # 0.3 Basophils # 0.0 Nucleated Red Blood Cells # 0.0 Sodium Level 142 Potassium Level 3.2 L Chloride Level 105 Carbon Dioxide Level 26 Anion Gap 14 Blood Urea Nitrogen 7 Creatinine 0.34 L Glucose Level 104 Calcium Level 8.6 Magnesium Level 1.8 Test 04/26/17 09:53 04/26/17 12:36 Bedside Glucose 115 118 Medications Medications Current Medications Ondansetron HCl (Zofran Inj) 4 mg Q6H PRN IV NAUSEA AND/OR VOMITING Last administered on 04/22/17 09:43; Admin Dose 4 MG; Start 04/21/17 at 20:00 Morphine Sulfate (morphine) 2 mg Q4H PRN IV PAIN LEVEL 7-10 Last administered on 04/26/17 12:39; Admin Dose 2 MG; Start 04/21/17 at 20:00 Lorazepam (Ativan) 1 mg Q2H PRN IV ANXIETY Last administered on 04/26/17 12: 25; Admin Dose 1 MG; Start 04/21/17 at 20:00 Metoclopramide HCl (Reglan) 10 mg Q6 IV Last administered on 04/26/17 12:25; Admin Dose 10 MG; Start 04/22/17 at 18:00 Sodium Hypochlorite (Dakin'S (Dilute 1/40%)) 1 applic BID IRR Last administered on 04/25/17 21:38; Admin Dose 1 APPLIC; Start 04/23/17 at 14:30 Collagenase (Santyl) 1 applic DAILY TOP Last administered on 04/25/17 09:00; Admin Dose 1 APPLIC; Start 04/23/17 at 16:00 Diphenhydramine HCl (Benadryl) 25 mg Q6H PRN IV Itchiness; Start 04/23/17 at 21:00 Vancomycin HCl (Vancomycin Oral Syringe) 250 mg Q6 PO Last administered on 12:25; Admin Dose 250 MG; Start 04/24/17 at 12:00 Diagnostic Test (Pha) 1 ea 1 ea Q4 XX Last administered on 04/25/17 17:49; Admin Dose 1 EA; Start 04/24/17 at 13:00 Metronidazole (Flagyl 500 Mg (Pmx)) 100 ml @ 100 mls/hr Q8 IVPB Last administered on 04/26/17 14:30; Admin Dose 100 MLS/HR; Start 04/24/17 at 14: 00 Sertraline HCl (Zoloft) 50 mg DAILY PEG Last administered on 04/26/17 09:51; Admin Dose 50 MG; Start 04/24/17 at 12:30 Zinc Sulfate (Zinc Sulfate) 220 mg DAILY GTB Last administered on 04/26/17 09 :51; Admin Dose 220 MG; Start 04/25/17 at 09:00 Ascorbic Acid (Vitamin C) 500 mg BID GTB Last administered on 04/26/17 09:51 ; Admin Dose 500 MG; Start 04/24/17 at 21:00 Multivitamins (Multivitamin) 30 ml DAILY GTB Last administered on 04/26/17 09 :51; Admin Dose 30 ML; Start 04/25/17 at 09:00 Famotidine (Pepcid) 20 mg BID GTB Last administered on 04/26/17 09:51; Admin Dose 20 MG; Start 04/24/17 at 21:00 Influenza Virus Vaccine 0.5 ml 0.5 ml ONCE ONCE IM* ; Start 04/27/17 at 11:00; Stop 04/27/17 at 11:01 Daptomycin/Sodium Chloride (Cubicin/NS) 100 ml @ 200 mls/hr Q24H IVPB Last administered on 04/26/17 16:26; Admin Dose 200 MLS/HR; Start 04/26/17 at 16: 00 Amikacin Sulfate AMIKACIN PER PHARMACY NOTE XX ; Start 04/26/17 at 14:00 Amikacin Sulfate/ Sodium Chloride (Amikacin/NS) 254 ml @ 254 mls/hr Q24H IVPB ; Start 04/26/17 at 17:00 ANGELICA CARTER MD Apr 26, 2017 16:37
[2017-04-26] MEDS: AMIKACIN 1,000 MG in SOD CHLORIDE 0.9% 250 ML IVPB SCH (17:21)
[2017-04-27] VITALS (24 sets, daily range): BP systolic 101–147; BP diastolic 58–93; PULSE 89–107; RESP 13–26
[2017-04-27] MEDS: ACCU-CHEK XX SCH ×6 (01:31→21:28)
--- NOTE | 2017-04-27 02:07 | CONS ---
DATE OF ADMISSION: 04/21/2017 DATE OF CONSULTATION: HISTORY OF PRESENT ILLNESS: A 26-year-old male with a history of quadriplegia had his G-tube change d. Patient had ileus which got resolved after the placement of a rectal tube. The rectal tube was placed to prevent contamination of the sacral wound from feces. The patient has no complaint but he does not experience any pain sensation because of his quadriplegia. OBJECTIVE: VITAL SIGNS: Stable. ABDOMEN: Benign. LUNGS: Clear. EXTREMITIES: No edema. CENTRAL NERVOUS SYSTEM: He is alert, awake and oriented. IMPRESSION: 1. Dislodgement of G-tube which was successfully placed. 2. Ventilator-dependent respiratory failure. 3. Quadriplegia. 4. Sacral ulcer. 5. Anemia. 6. Sinus tachycardia with preserved ejection fraction. 7. Depression. PLAN: To continue present care. We will proceed with a colonoscopy. Dictated By: JAMES FERGUSON/MASON Conf#: [id number] DID#: [id number] CC: SVEN WALLACE MD;*EndCC*
[2017-04-27] MEDS: morphine 2 MG INJ IV PRN ×4 (05:18→21:20)
[2017-04-27] MEDS: metroNIDAZOLE 500 MG/NS (PMX) 100 ML IVPB SCH ×3 (05:18→21:28)
[2017-04-27] MEDS: METOCLOPRAMIDE 10 MG INJ IV SCH ×3 (05:19→16:44)
[2017-04-27] MEDS: LORAZEPAM 2 MG INJ IV PRN ×4 (05:19→21:20)
[2017-04-27] MEDS: VANCOMYCIN HCL 250 MG/5ML POSYG PO SCH ×3 (05:28→17:24)
[2017-04-27] MEDS: COLLAGENASE 30 GM TUBE TOP SCH (09:00)
[2017-04-27] MEDS: SODIUM HYPOCHLORITE 1/40% 1L IRRIG IRR SCH ×2 (09:00→21:23)
--- NOTE | 2017-04-27 09:15 | OPPN ---
Date/Time of Note Date/Time of Note DATE: 04/27/17 TIME: 09:13 Proc Note GI Procedure Date 04/27/17 Indication: screening/surveillance, diagnostic Pre-procedure Diagnosis 1. Epigastric pain 2. Surveillance for colon polyps Post-procedure Diagnosis 1. Colonoscopy 2 polyps found. 1. Rectal polyp removed with jumbo biopsy forceps it was diminutive 2. Thickened fold at 55 cm to jumbo biopsies obtained it was 1 cm in diameter totally flat 3. Normal terminal ileum 4. External hemorrhoids EGD with biopsy 1. Gastritis 2. Small ulcer in the second part of duodenum. Procedure Performed: Endoscopy, Colonoscopy Surgeon see signature line Ekg Tech none Anesthesia Type: MAC Tourniquet Time none EBL none Transfusion required none Biopsy 1: Stomach biopsy, duodenal biopsy Polyp 1: Rectal polyp removed Polyp 2: Thickened fold at 55 cm Grafts/Implants none Tubes/Drains none Complication(s) none Disposition: PACU, other (Procedure was done bedside in ICU) Procedure Description See dictated report JAMES GOODWIN MD Apr 27, 2017 09:15
[2017-04-27] MEDS: MULTIVITAMINS 30 ML CUP GTB SCH (10:00)
[2017-04-27] MEDS: ASCORBIC ACID 500 MG TAB GTB SCH ×2 (10:00→21:23)
[2017-04-27] MEDS: FAMOTIDINE 20 MG TAB GTB SCH ×2 (10:00→21:23)
[2017-04-27] MEDS: SERTRALINE 50 MG TAB PEG SCH (10:00)
[2017-04-27] MEDS: ZINC SULFATE 220 MG CAP GTB SCH (10:01)
[2017-04-27] MEDS ORDERED: INFLUENZA VIRUS VACCINE 0.5 ML SYG IM* ONE (11:00)
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
[2017-04-27] MEDS ORDERED: PEG/ELECTROLYTES 4L BTL PO ONE ×2 (15:00→21:00)
--- NOTE | 2017-04-27 15:38 | CONS ---
Date/Time of Note Date/Time of Note DATE: 04/27/17 TIME: 15:38 Consult Date/Type/Reason Admit Date/Time Apr 21, 2017 at 18:32 Initial Consult Date 04/22/17 Type of Consultation: Pulmonary Subjective Patient comfortable. No new events. Objective Vital Signs Date Time Temp Pulse Resp B/P Pulse Ox O2 Delivery O2 Flow Rate FiO2 04/27/17 15:10 103 21 99 35 04/27/17 13:01 Mechanical Ventilator 04/27/17 11:59 98.3 122/69 Intake and Output 04/26/17 04/26/17 04/27/17 15:00 23:00 07:00 Intake Total 1020 ml 985 ml Output Total 1100 ml 1850 ml Balance -80 ml -865 ml Exam PHYSICAL EXAMINATION: GENERAL: Anxious gentleman, appears comfortable at rest, no acute distress. VITAL SIGNS: NECK: Trach site clean and intact. CARDIAC: S1, S2, no added sounds or murmurs. CHEST: Diminished air entry bilaterally. ABDOMEN: Soft, nontender. No guarding or rebound. EXTREMITIES: No cyanosis, clubbing, 1+ edema. NEUROLOGIC: Generalized weakness. Stage IV decubitus ulcer Results/Medications Result Diagram: 04/26/17 0711 04/26/17 0711 Results 24 hrs Laboratory Tests Test 04/26/17 17:19 04/26/17 21:32 04/27/17 01:25 04/27/17 03:14 Bedside Glucose 116 98 103 Random Amikacin Level Test 04/27/17 05:16 04/27/17 08:19 04/27/17 08:21 04/27/17 10:08 Bedside Glucose 110 105 Creatine Kinase 21 L Lab Scanned Report REFERENCE LAB Test 04/27/17 14:50 Bedside Glucose 117 Medications Current Medications Ondansetron HCl (Zofran Inj) 4 mg Q6H PRN IV NAUSEA AND/OR VOMITING Last administered on 04/22/17 09:43; Admin Dose 4 MG; Start 04/21/17 at 20:00 Morphine Sulfate (morphine) 2 mg Q4H PRN IV PAIN LEVEL 7-10 Last administered on 04/27/17 10:01; Admin Dose 2 MG; Start 04/21/17 at 20:00 Lorazepam (Ativan) 1 mg Q2H PRN IV ANXIETY Last administered on 04/27/17 10: 01; Admin Dose 1 MG; Start 04/21/17 at 20:00 Metoclopramide HCl (Reglan) 10 mg Q6 IV Last administered on 04/27/17 11:24; Admin Dose 10 MG; Start 04/22/17 at 18:00 Sodium Hypochlorite (Dakin'S (Dilute 1/40%)) 1 applic BID IRR Last administered on 04/26/17 21:22; Admin Dose 1 APPLIC; Start 04/23/17 at 14:30 Collagenase (Santyl) 1 applic DAILY TOP Last administered on 04/25/17 09:00; Admin Dose 1 APPLIC; Start 04/23/17 at 16:00 Diphenhydramine HCl (Benadryl) 25 mg Q6H PRN IV Itchiness; Start 04/23/17 at 21:00 Vancomycin HCl (Vancomycin Oral Syringe) 250 mg Q6 PO Last administered on 11:24; Admin Dose 250 MG; Start 04/24/17 at 12:00 Diagnostic Test (Pha) 1 ea 1 ea Q4 XX Last administered on 04/27/17 05:17; Admin Dose 1 EA; Start 04/24/17 at 13:00 Metronidazole (Flagyl 500 Mg (Pmx)) 100 ml @ 100 mls/hr Q8 IVPB Last administered on 04/27/17 14:48; Admin Dose 100 MLS/HR; Start 04/24/17 at 14: 00 Sertraline HCl (Zoloft) 50 mg DAILY PEG Last administered on 04/27/17 10:00; Admin Dose 50 MG; Start 04/24/17 at 12:30 Zinc Sulfate (Zinc Sulfate) 220 mg DAILY GTB Last administered on 04/27/17 10 :01; Admin Dose 220 MG; Start 04/25/17 at 09:00 Ascorbic Acid (Vitamin C) 500 mg BID GTB Last administered on 04/27/17 10:00 ; Admin Dose 500 MG; Start 04/24/17 at 21:00 Multivitamins (Multivitamin) 30 ml DAILY GTB Last administered on 04/27/17 10 :00; Admin Dose 30 ML; Start 04/25/17 at 09:00 Famotidine 20 mg 20 mg BID GTB Last administered on 04/27/17 10:00; Admin Dose 20 MG; Start 04/24/17 at 21:00 Daptomycin/Sodium Chloride (Cubicin/NS) 100 ml @ 200 mls/hr Q24H IVPB Last administered on 04/26/17 16:26; Admin Dose 200 MLS/HR; Start 04/26/17 at 16: 00 Amikacin Sulfate AMIKACIN PER PHARMACY NOTE XX ; Start 04/26/17 at 14:00 Amikacin Sulfate/ Sodium Chloride (Amikacin/NS) 254 ml @ 254 mls/hr Q24H IVPB Last administered on 04/26/17 17:21; Admin Dose 254 MLS/HR; Start 04/26/17 at 17:00 Miscellaneous Information (*Rx Drug Level Order Reminder*) AMIKACIN TROUGH ON ... ONCE ONCE XX ; Start 04/28/17 at 16:00; Stop 04/28/17 at 16:01 Assessment/Plan Chief Complaint/Hosp Course Imp: s/p svt ileus clinically resolved. Tube feeding to be started following G-tube revision. chronic resp failure. decub stage IV. PLAN: 1. Continue mechanical ventilation. Speech therapy eval with PMV 2. Continue surgical recommendations. 3. Broad-spectrum antibiotics. 4. Wound care. 5. Deep venous thrombosis and gastrointestinal prophylaxis. Transfer back to [place]. Problems: JIMMIE BARTON MD, [facility] Apr 27, 2017 15:38
[2017-04-27] MEDS: DAPTOMYCIN IVPB SCH (15:39)
[2017-04-27] MEDS: SOD CHLORIDE 0.9% IVPB SCH (15:39)
[2017-04-27] MEDS: ONDANSETRON 4 MG INJ IV PRN (16:43)
[2017-04-27] MEDS: AMIKACIN 1,000 MG in SOD CHLORIDE 0.9% 250 ML IVPB SCH (16:43)
[2017-04-27] MEDS: DIPHENHYDRAMINE 50 MG INJ IV PRN (16:44)
--- NOTE | 2017-04-27 18:25 | PN ---
Date/Time of Note Date/Time of Note DATE: 04/27/17 TIME: 18:21 Assessment/Plan Lines/Catheters IV [facility]ter Type (from [facility]): Mid Line Assessment/Plan Chief Complaint/Hosp Course 1. Small bowel obstruction from ?distal colon pathology: now w bowel function to rectal tube; likely resolved -colonoscopy pending per gi- tomorrow -rectal tube to contain feces away from sacral wound -ivf -monitor -eventual ostomy after colonoscopy 2. Gtube dislodgement -found at subq; replaced by gi -monitor 3. Leukocytosis: likely 2/2 #1+/-2 +/- 6, min temp today -as above 4. Microcytic, hypochromic anemia: -monitor -transfuse as needed -further workup per medical team 5. VDRF -pulm toilet -respiratory treatments 6. Sacral wound: + cultures -debridement prn -local care bid -frequent turning and off-loading -low air loss mattress -vitamin c -short term zinc -optimize nutrition -cultures 7. Sinus tachycardia: s/p amio drip -per cards Thank you. Patient seen and examined in collaboration with Dr. Kevin Rushing. Problems: Subjective 24 Hr Interval Summary Pending colonoscopy tomorrow. Tachycardia. No fevers, chills, sob, congested cough, cp, palpitations, blanco, dizziness, n/v/d/dysuria. Exam/Review of Systems Vital Signs Vitals Vital Signs Date Time Temp Pulse Resp B/P Pulse Ox O2 Delivery O2 Flow Rate FiO2 04/27/17 17:15 105 20 97 35 04/27/17 16:17 Mechanical Ventilator 04/27/17 16:10 99.2 147/93 Intake and Output 04/26/17 04/26/17 04/27/17 15:00 23:00 07:00 Intake Total 1020 ml 985 ml Output Total 1100 ml 1850 ml Balance -80 ml -865 ml Exam Free Text/Dictation Constitutional: alert, oriented Psych: anxiety Head: atraumatic, normocephalic Eyes: nl lids, nl sclera ENMT: mucosa pink and moist, nl nasal mucosa & septum Neck: non-tender, other (trach), supple Respiratory: No labored breathing Cardiovascular: rrr, sr Gastrointestinal: distended (mod ), soft, No tender Genitourinary - Male: nl penis, nl scrotum Musculoskeletal: nl extremities to inspection, No muscle tone Extremities: normal pulses, No edema Neurological: other (quadriplegia), No nl strength Skin: wounds - nurses notes and pics: sacral wound packed, malodorous, erythema periwound Results Result Diagram: 04/26/17 0711 04/26/17 0711 REGINO GLOVER NP Apr 27, 2017 18:25
--- NOTE | 2017-04-27 18:31 | PN ---
Date/Time of Note Date/Time of Note DATE: 04/27/17 TIME: 18:29 Assessment/Plan VTE Prophylaxis VTE Prophylaxis Intervention: LMWH Lines/Catheters IV Catheter Type (from Nrsg): Mid Line Assessment/Plan Chief Complaint/Hosp Course 26 yo male wtih quadriplegia admitted for SBO now resolved and stage IV sacral decubitus ulcer SBO: - Resolved -rectal tube in place to keep feces away from sacral wound -eventual ostomy 2. PEG tube dislodgement -PEG tube was changed by GI Stage IV sacral decubitus ulcer: -Continue IV antibiotics per ID -Wound care 4. Microcytic anemia secondary to anemia of chronic disease 5. VDRF -Continue vent support -Pulmonology following 7. Sinus tachycardia status post amiodarone drip-resolved -Cardiology consultation appreciated -Preserved EF 8. Depression Have started Zoloft 9. Hypokalemia Repleted Problems: Subjective 24 Hr Interval Summary Free Text/Dictation No change to clinical status Continues with abx and local therapy for stage IV sacral decubitus Exam/Review of Systems Vital Signs Vitals Vital Signs Date Time Temp Pulse Resp B/P Pulse Ox O2 Delivery O2 Flow Rate FiO2 04/27/17 17:15 105 20 97 35 04/27/17 16:17 Mechanical Ventilator 04/27/17 16:10 99.2 147/93 Intake and Output 04/26/17 04/26/17 04/27/17 15:00 23:00 07:00 Intake Total 1020 ml 985 ml Output Total 1100 ml 1850 ml Balance -80 ml -865 ml Results Result Diagram: 04/26/17 0711 04/26/17 0711 Results 24 hrs Laboratory Tests Test 04/26/17 21:32 04/27/17 01:25 04/27/17 03:14 04/27/17 05:16 Bedside Glucose 98 103 110 Random Amikacin Level Test 04/27/17 08:19 04/27/17 08:21 04/27/17 10:08 04/27/17 14:50 Creatine Kinase 21 L Lab Scanned Report REFERENCE LAB Bedside Glucose 105 117 Test 04/27/17 16:51 Bedside Glucose 92 Medications Medications Current Medications Ondansetron HCl (Zofran Inj) 4 mg Q6H PRN IV NAUSEA AND/OR VOMITING Last administered on 04/27/17t 16:43; Admin Dose 4 MG; Start 04/21/17 at 20:00 Morphine Sulfate (morphine) 2 mg Q4H PRN IV PAIN LEVEL 7-10 Last administered on 04/27/17 16:44; Admin Dose 2 MG; Start 04/21/17 at 20:00 Lorazepam (Ativan) 1 mg Q2H PRN IV ANXIETY Last administered on 04/27/17 16: 43; Admin Dose 1 MG; Start 04/21/17 at 20:00 Metoclopramide HCl (Reglan) 10 mg Q6 IV Last administered on 04/27/17 11:24; Admin Dose 10 MG; Start 04/22/17 at 18:00 Sodium Hypochlorite (Dakin'S (Dilute 1/40%)) 1 applic BID IRR Last administered on 04/26/17 21:22; Admin Dose 1 APPLIC; Start 04/23/17 at 14:30 Collagenase (Santyl) 1 applic DAILY TOP Last administered on 04/25/17 09:00; Admin Dose 1 APPLIC; Start 04/23/17 at 16:00 Diphenhydramine HCl (Benadryl) 25 mg Q6H PRN IV Itchiness Last administered on 04/27/17 16:44; Admin Dose 25 MG; Start 04/23/17 at 21:00 Vancomycin HCl (Vancomycin Oral Syringe) 250 mg Q6 PO Last administered on 17:24; Admin Dose 250 MG; Start 04/24/17 at 12:00 Diagnostic Test (Pha) 1 ea 1 ea Q4 XX Last administered on 04/27/17 05:17; Admin Dose 1 EA; Start 04/24/17 at 13:00 Metronidazole (Flagyl 500 Mg (Pmx)) 100 ml @ 100 mls/hr Q8 IVPB Last administered on 04/27/17 14:48; Admin Dose 100 MLS/HR; Start 04/24/17 at 14: 00 Sertraline HCl (Zoloft) 50 mg DAILY PEG Last administered on 04/27/17 10:00; Admin Dose 50 MG; Start 04/24/17 at 12:30 Zinc Sulfate (Zinc Sulfate) 220 mg DAILY GTB Last administered on 04/27/17 10 :01; Admin Dose 220 MG; Start 04/25/17 at 09:00 Ascorbic Acid (Vitamin C) 500 mg BID GTB Last administered on 04/27/17 10:00 ; Admin Dose 500 MG; Start 04/24/17 at 21:00 Multivitamins (Multivitamin) 30 ml DAILY GTB Last administered on 04/27/17 10 :00; Admin Dose 30 ML; Start 04/25/17 at 09:00 Famotidine 20 mg 20 mg BID GTB Last administered on 04/27/17 10:00; Admin Dose 20 MG; Start 04/24/17 at 21:00 Daptomycin/Sodium Chloride (Cubicin/NS) 100 ml @ 200 mls/hr Q24H IVPB Last administered on 04/27/17 15:39; Admin Dose 200 MLS/HR; Start 04/26/17 at 16: 00 Amikacin Sulfate AMIKACIN PER PHARMACY NOTE XX ; Start 04/26/17 at 14:00 Amikacin Sulfate/ Sodium Chloride (Amikacin/NS) 254 ml @ 254 mls/hr Q24H IVPB Last administered on 04/27/17 16:43; Admin Dose 254 MLS/HR; Start 04/26/17 at 17:00 Miscellaneous Information (*Rx Drug Level Order Reminder*) AMIKACIN TROUGH ON ... ONCE ONCE XX ; Start 04/28/17 at 16:00; Stop 04/28/17 at 16:01 ANGELICA CARTER MD Apr 27, 2017 18:31
--- NOTE | 2017-04-27 19:01 | RADRPT ---
PROCEDURE: XR Chest. CLINICAL INDICATION: Preop TECHNIQUE: AP Portable chest. COMPARISON: CT 04/08/2017; CHEST 04/05/2017; CHEST 04/02/2017 FINDINGS: The tracheostomy tube is midline. The cardiomediastinal silhouette is within normal limits, partially obscured. The aorta is normal. P erihilar ground-glass densities and bibasilar opacities are similar in appearance. The hemidiaphragm s are obscured. No pneumothorax is seen. The osseous structures are intact. IMPRESSION: Unchanged bibasilar consolidation or atelectasis. Tracheostomy tube in place. Physician Kulwinder Date Time Electronically viewed and signed by Physician Kulwinder on 04/27/2017 19:00 /
--- NOTE | 2017-04-27 19:18 | CONS ---
Date/Time of Note Date/Time of Note DATE: 04/27/17 TIME: 19:18 Assessment/Plan Assessment/Plan Additional Assessment/Plan HISTORY OF PRESENT ILLNESS: A 26-year-old male with a history of quadriplegia had his G-tube changed. Patient had ileus which got resolved after the placement of a rectal tube. The rectal tube was placed to prevent contamination of the sacral wound from feces. The patient has no complaint but he does not experience any pain sensation because of his quadriplegia. OBJECTIVE: VITAL SIGNS: Stable. ABDOMEN: Benign. LUNGS: Clear. EXTREMITIES: No edema. CENTRAL NERVOUS SYSTEM: He is alert, awake and oriented. IMPRESSION: 1. Dislodgement of G-tube which was successfully placed. 2. Ventilator-dependent respiratory failure. 3. Quadriplegia. 4. Sacral ulcer. 5. Anemia. 6. Sinus tachycardia with preserved ejection fraction. 7. Depression. PLAN: To continue present care. We will proceed with a colonoscopy. Discussed the patient and is agreed for the procedure Consultation Date/Type/Reason Admit Date/Time Apr 21, 2017 at 18:32 Initial Consult Date 04/22/17 Type of Consultation: Pulmonary 24 HR Interval Summary Constitutional: improved Exam/Review of Systems Vital Signs Vitals Vital Signs Date Time Temp Pulse Resp B/P Pulse Ox O2 Delivery O2 Flow Rate FiO2 04/27/17 17:15 105 20 97 35 04/27/17 16:17 Mechanical Ventilator 04/27/17 16:10 99.2 147/93 Intake and Output 04/26/17 04/26/17 04/27/17 15:00 23:00 07:00 Intake Total 1020 ml 985 ml Output Total 1100 ml 1850 ml Balance -80 ml -865 ml Exam Constitutional: alert, oriented, well developed Psych: nl mood/affect, no complaints Head: atraumatic, normocephalic Eyes: EOMI, PERRL, nl conjunctiva, nl lids, nl sclera ENMT: nl external ears & nose, nl lips & teeth, nl nasal mucosa & septum Neck: non-tender, supple Respiratory: clear to auscultation, normal air movement Cardiovascular: nl pulses, regular rate and rhythm Gastrointestinal: nl liver, spleen, non-tender, soft Musculoskeletal: nl extremities to inspection, nl gait and stance Extremities: normal pulses Neurological: IT PROFESSIONAL II-XII intact, nl mental status, nl speech, nl strength Skin: nl turgor, No rash or lesions Lymph: nl lymph nodes Results Result Diagram: 04/26/17 0711 04/26/17 0711 Results 24 hrs Laboratory Tests Test 04/26/17 21:32 04/27/17 01:25 04/27/17 03:14 04/27/17 05:16 Bedside Glucose 98 103 110 Random Amikacin Level Test 04/27/17 08:19 04/27/17 08:21 04/27/17 10:08 04/27/17 14:50 Creatine Kinase 21 L Lab Scanned Report REFERENCE LAB Bedside Glucose 105 117 Test 04/27/17 16:51 Bedside Glucose 92 Medications Medications Current Medications Ondansetron HCl (Zofran Inj) 4 mg Q6H PRN IV NAUSEA AND/OR VOMITING Last administered on 04/27/17 16:43; Admin Dose 4 MG; Start 04/21/17 at 20:00 Morphine Sulfate (morphine) 2 mg Q4H PRN IV PAIN LEVEL 7-10 Last administered on 04/27/17 16:44; Admin Dose 2 MG; Start 04/21/17 at 20:00 Lorazepam (Ativan) 1 mg Q2H PRN IV ANXIETY Last administered on 04/27/17 16: 43; Admin Dose 1 MG; Start 04/21/17 at 20:00 Metoclopramide HCl (Reglan) 10 mg Q6 IV Last administered on 04/27/17 11:24; Admin Dose 10 MG; Start 04/22/17 at 18:00 Sodium Hypochlorite (Dakin'S (Dilute 1/40%)) 1 applic BID IRR Last administered on 04/26/17 21:22; Admin Dose 1 APPLIC; Start 04/23/17 at 14:30 Collagenase (Santyl) 1 applic DAILY TOP Last administered on 04/25/17 09:00; Admin Dose 1 APPLIC; Start 04/23/17 at 16:00 Diphenhydramine HCl (Benadryl) 25 mg Q6H PRN IV Itchiness Last administered on 04/27/17 16:44; Admin Dose 25 MG; Start 04/23/17 at 21:00 Vancomycin HCl (Vancomycin Oral Syringe) 250 mg Q6 PO Last administered on 17:24; Admin Dose 250 MG; Start 04/24/17 at 12:00 Diagnostic Test (Pha) 1 ea 1 ea Q4 XX Last administered on 04/27/17 05:17; Admin Dose 1 EA; Start 04/24/17 at 13:00 Metronidazole (Flagyl 500 Mg (Pmx)) 100 ml @ 100 mls/hr Q8 IVPB Last administered on 04/27/17 14:48; Admin Dose 100 MLS/HR; Start 04/24/17 at 14: 00 Sertraline HCl (Zoloft) 50 mg DAILY PEG Last administered on 04/27/17 10:00; Admin Dose 50 MG; Start 04/24/17 at 12:30 Zinc Sulfate (Zinc Sulfate) 220 mg DAILY GTB Last administered on 04/27/17 10 :01; Admin Dose 220 MG; Start 04/25/17 at 09:00 Ascorbic Acid (Vitamin C) 500 mg BID GTB Last administered on 04/27/17 10:00 ; Admin Dose 500 MG; Start 04/24/17 at 21:00 Multivitamins (Multivitamin) 30 ml DAILY GTB Last administered on 04/27/17 10 :00; Admin Dose 30 ML; Start 04/25/17 at 09:00 Famotidine 20 mg 20 mg BID GTB Last administered on 04/27/17 10:00; Admin Dose 20 MG; Start 04/24/17 at 21:00 Daptomycin/Sodium Chloride (Cubicin/NS) 100 ml @ 200 mls/hr Q24H IVPB Last administered on 04/27/17 15:39; Admin Dose 200 MLS/HR; Start 04/26/17 at 16: 00 Amikacin Sulfate AMIKACIN PER PHARMACY NOTE XX ; Start 04/26/17 at 14:00 Amikacin Sulfate/ Sodium Chloride (Amikacin/NS) 254 ml @ 254 mls/hr Q24H IVPB Last administered on 04/27/17 16:43; Admin Dose 254 MLS/HR; Start 04/26/17 at 17:00 Miscellaneous Information (*Rx Drug Level Order Reminder*) AMIKACIN TROUGH ON ... ONCE ONCE XX ; Start 04/28/17 at 16:00; Stop 04/28/17 at 16:01 JAMES GOODWIN MD Apr 27, 2017 19:18
[2017-04-27 19:19] LABS: INR 1.34; PROTIME 16.7 Sec (12.2-14.2); PT RATIO 1.3
[2017-04-28] VITALS (24 sets, daily range): BP systolic 99–117; BP diastolic 57–75; PULSE 86–112; RESP 17–23
[2017-04-28] MEDS: VANCOMYCIN HCL 250 MG/5ML POSYG PO SCH ×4 (00:43→18:00)
[2017-04-28] MEDS: METOCLOPRAMIDE 10 MG INJ IV SCH ×5 (00:43→23:35)
[2017-04-28] MEDS: LORAZEPAM 2 MG INJ IV PRN ×6 (00:51→23:35)
[2017-04-28] MEDS: ACCU-CHEK XX SCH ×6 (01:02→20:59)
[2017-04-28] MEDS: morphine 2 MG INJ IV PRN ×4 (04:51→21:47)
[2017-04-28] MEDS: metroNIDAZOLE 500 MG/NS (PMX) 100 ML IVPB SCH ×3 (05:53→20:59)
[2017-04-28] MEDS: FAMOTIDINE 20 MG TAB GTB SCH ×2 (08:19→20:58)
[2017-04-28] MEDS: ZINC SULFATE 220 MG CAP GTB SCH (08:19)
[2017-04-28] MEDS: MULTIVITAMINS 30 ML CUP GTB SCH (08:19)
[2017-04-28] MEDS: ASCORBIC ACID 500 MG TAB GTB SCH ×2 (08:19→20:58)
[2017-04-28] MEDS: SERTRALINE 50 MG TAB PEG SCH (08:19)
[2017-04-28] MEDS: SODIUM HYPOCHLORITE 1/40% 1L IRRIG IRR SCH ×2 (08:20→21:00)
[2017-04-28] MEDS: COLLAGENASE 30 GM TUBE TOP SCH (08:20)
[2017-04-28 08:47] LABS: BASOPHILS % 0.4 % (0.0-2.0); EOSINOPHILS # 0.7 10^3/ul (0.0-0.5); EOSINOPHILS % 6.8 % (0.0-7.0); HEMATOCRIT 27.9 % (42.0-52.0); HEMOGLOBIN 8.1 g/dl (14.0-18.0); LYMPHOCYTES # 2.5 10^3/ul (0.8-2.9); LYMPHOCYTES % 24.8 % (15.0-51.0); MEAN CORPUSCULAR HEMOGLOBIN 24.9 pg (29.0-33.0); MEAN CORPUSCULAR VOLUME 85.8 fl (82.0-101.0); MEAN PLATELET VOLUME 10.1 fl (7.4-10.4); MONOCYTE # 0.7 10^3/ul (0.3-0.9); MONOCYTES % 6.9 % (0.0-11.0); NEUTROPHIL # 6.1 10^3/ul (1.6-7.5); NEUTROPHILS % 60.8 % (39.0-77.0); PLATELET COUNT 507 10^3/UL (140-415); RED BLOOD COUNT 3.25 10^6/ul (4.70-6.10); RED CELL DISTRIBUTION WIDTH 17.3 % (11.5-14.5)
[2017-04-28 09:05] LABS: PARTIAL THROMBOPLASTIN TIME 25.9 Sec (25.0-35.0)
[2017-04-28 09:12] LABS: ALBUMIN 3.1 g/dl (3.3-4.9); ALBUMIN/GLOBULIN RATIO 0.93; BILIRUBIN,INDIRECT 0.1 mg/dl (0-1.1); BILIRUBIN,TOTAL 0.1 mg/dl (0.2-1.3); CALCIUM 8.6 mg/dl (8.4-10.2); CREATININE 0.31 mg/dl (0.61-1.24); POTASSIUM 3.6 mmol/L (3.5-5.1); TOTAL PROTEIN 6.4 g/dl (6.1-8.1)
--- NOTE | 2017-04-28 10:53 | PN ---
Date/Time of Note Date/Time of Note DATE: 04/28/17 TIME: 10:52 Assessment/Plan Lines/Catheters IV Catheter Type (from [facility]): Mid Line Schumacher in Place (from [facility]): Yes Assessment/Plan Chief Complaint/Hosp Course 1. Small bowel obstruction from ?distal colon pathology: now w bowel function to rectal tube; likely resolved -colonoscopy pending per gi- today -rectal tube to contain feces away from sacral wound -ivf -monitor -possible eventual ostomy after colonoscopy 2. Gtube dislodgement -found at subq; replaced by gi -monitor 3. Leukocytosis: likely 2/ #1+/-2 +/- 6, min temp today -as above 4. Microcytic, hypochromic anemia: -monitor -transfuse as needed -further workup per medical team 5. VDRF -pulm toilet -respiratory treatments 6. Sacral wound: + cultures -debridement prn -local care bid -frequent turning and off-loading -low air loss mattress -vitamin c -short term zinc -optimize nutrition -cultures 7. Sinus tachycardia: s/p amio drip -per cards Thank you, Problems: Subjective 24 Hr Interval Summary Pending colonoscopy today. Tachycardia. No fevers, chills, sob, congested cough , cp, palpitations, blanco, dizziness, n/v/d/dysuria. Exam/Review of Systems Vital Signs Vitals Vital Signs Date Time Temp Pulse Resp B/P Pulse Ox O2 Delivery O2 Flow Rate FiO2 04/28/17 08:42 106 04/28/17 08:25 20 96 35 04/28/17 07:57 99.3 104/57 04/27/17 16:17 Mechanical Ventilator Intake and Output 04/27/17 04/27/17 04/28/17 15:00 23:00 07:00 Intake Total 3020 ml 540 ml Output Total 2100 ml 2300 ml Balance 920 ml -1760 ml Exam Free Text/Dictation Constitutional: alert, oriented Psych: anxiety Head: atraumatic, normocephalic Eyes: nl lids, nl sclera ENMT: mucosa pink and moist, nl nasal mucosa & septum Neck: non-tender, other (trach), supple Respiratory: No labored breathing Cardiovascular: rrr, sr Gastrointestinal: distended (mod ), soft, No tender Genitourinary - Male: nl penis, nl scrotum Musculoskeletal: nl extremities to inspection, No muscle tone Extremities: normal pulses, No edema Neurological: other (quadriplegia), No nl strength Skin: wounds - nurses notes and pics: sacral wound packed, malodorous, erythema periwound Results Result Diagram: 04/28/17 0821 04/28/17 0821 DEX OLIVER MD Apr 28, 2017 10:53
--- NOTE | 2017-04-28 11:44 | CONS ---
Date/Time of Note Date/Time of Note DATE: 04/28/17 TIME: 11:43 Consult Date/Type/Reason Admit Date/Time Apr 21, 2017 at 18:32 Initial Consult Date 04/22/17 Type of Consultation: Pulmonary Subjective Patient remains stable. No new events. Pending colonoscopy. Objective Vital Signs Date Time Temp Pulse Resp B/P Pulse Ox O2 Delivery O2 Flow Rate FiO2 04/28/17 11:40 98.9 99 18 115/73 96 04/28/17 10:53 35 04/27/17 16:17 Mechanical Ventilator Intake and Output 04/27/17 04/27/17 04/28/17 15:00 23:00 07:00 Intake Total 3020 ml 540 ml Output Total 2100 ml 2300 ml Balance 920 ml -1760 ml Exam PHYSICAL EXAMINATION: GENERAL: Young gentleman comfortable at rest no acute distress VITAL SIGNS: NECK: Trach site clean and intact. CARDIAC: S1, S2, no added sounds or murmurs. CHEST: Diminished air entry bilaterally. ABDOMEN: Soft, nontender. No guarding or rebound. EXTREMITIES: No cyanosis, clubbing, 1+ edema. NEUROLOGIC: Generalized weakness. Stage IV decubitus ulcer Results/Medications Result Diagram: 04/28/1782004/28/1721 Results 24 hrs Laboratory Tests Test 04/27/17 14:50 04/27/17 16:51 04/27/17 18:40 04/27/17 21:16 Bedside Glucose 117 92 87 Prothrombin Time 16.7 H Prothrombin Time Ratio 1.3 INR International Normalized Ratio 1.34 Test 04/28/17 00:41 04/28/17 04:48 04/28/17 08:11 04/28/17 08:21 Bedside Glucose 97 87 87 White Blood Count 10.0 # Red Blood Count 3.25 L Hemoglobin 8.1 L Hematocrit 27.9 L Mean Corpuscular Volume 85.8 Mean Corpuscular Hemoglobin 24.9 L Mean Corpuscular Hemoglobin Concent 29.0 L Red Cell Distribution Width 17.3 H Platelet Count 507 H Mean Platelet Volume 10.1 Neutrophils % 60.8 Lymphocytes % 24.8 Monocytes % 6.9 Eosinophils % 6.8 Basophils % 0.4 Nucleated Red Blood Cells % 0.0 Neutrophils # 6.1 Lymphocytes # 2.5 Monocytes # 0.7 Eosinophils # 0.7 H Basophils # 0.0 Nucleated Red Blood Cells # 0.0 Activated Partial Thromboplast Time 25.9 Mix PTT Normal Plasma Immediate Sodium Level 138 Potassium Level 3.6 Chloride Level 103 Carbon Dioxide Level 25 Anion Gap 14 Blood Urea Nitrogen 5 L Creatinine 0.31 L Glucose Level 80 Calcium Level 8.6 Total Bilirubin 0.1 L Direct Bilirubin 0.00 Indirect Bilirubin 0.1 Aspartate Amino Transf (AST/SGOT) 19 Alanine Aminotransferase (ALT/SGPT) 36 Alkaline Phosphatase 56 Total Protein 6.4 Albumin 3.1 L Globulin 3.30 H Albumin/Globulin Ratio 0.93 Medications Current Medications Ondansetron HCl (Zofran Inj) 4 mg Q6H PRN IV NAUSEA AND/OR VOMITING Last administered on 04/27/17 16:43; Admin Dose 4 MG; Start 04/21/17 at 20:00 Morphine Sulfate (morphine) 2 mg Q4H PRN IV PAIN LEVEL 7-10 Last administered on 04/28/17 09:42; Admin Dose 2 MG; Start 04/21/17 at 20:00 Lorazepam (Ativan) 1 mg Q2H PRN IV ANXIETY Last administered on 04/28/17 08: 20; Admin Dose 1 MG; Start 04/21/17 at 20:00 Metoclopramide HCl (Reglan) 10 mg Q6 IV Last administered on 04/28/17 05:53; Admin Dose 10 MG; Start 04/22/17 at 18:00 Sodium Hypochlorite (Dakin'S (Dilute 1/40%)) 1 applic BID IRR Last administered on 04/28/17 08:20; Admin Dose 1 APPLIC; Start 04/23/17 at 14:30 Collagenase (Santyl) 1 applic DAILY TOP Last administered on 04/28/17 08:20; Admin Dose 1 APPLIC; Start 04/23/17 at 16:00 Diphenhydramine HCl (Benadryl) 25 mg Q6H PRN IV Itchiness Last administered on 04/27/17 16:44; Admin Dose 25 MG; Start 04/23/17 at 21:00 Vancomycin HCl (Vancomycin Oral Syringe) 250 mg Q6 PO Last administered on 05:53; Admin Dose 250 MG; Start 04/24/17 at 12:00 Diagnostic Test (Pha) 1 ea 1 ea Q4 XX Last administered on 04/28/17 04:50; Admin Dose 1 EA; Start 04/24/17 at 13:00 Metronidazole (Flagyl 500 Mg (Pmx)) 100 ml @ 100 mls/hr Q8 IVPB Last administered on 04/28/17 05:53; Admin Dose 100 MLS/HR; Start 04/24/17 at 14: 00 Sertraline HCl (Zoloft) 50 mg DAILY PEG Last administered on 04/27/17 10:00; Admin Dose 50 MG; Start 04/24/17 at 12:30 Zinc Sulfate (Zinc Sulfate) 220 mg DAILY GTB Last administered on 04/27/17 10 :01; Admin Dose 220 MG; Start 04/25/17 at 09:00 Ascorbic Acid (Vitamin C) 500 mg BID GTB Last administered on 04/27/17 21:23 ; Admin Dose 500 MG; Start 04/24/17 at 21:00 Multivitamins (Multivitamin) 30 ml DAILY GTB Last administered on 04/27/17 10 :00; Admin Dose 30 ML; Start 04/25/17 at 09:00 Famotidine 20 mg 20 mg BID GTB Last administered on 04/27/17 21:23; Admin Dose 20 MG; Start 04/24/17 at 21:00 Daptomycin/Sodium Chloride (Cubicin/NS) 100 ml @ 200 mls/hr Q24H IVPB Last administered on 04/27/17 15:39; Admin Dose 200 MLS/HR; Start 04/26/17 at 16: 00 Amikacin Sulfate AMIKACIN PER PHARMACY NOTE XX ; Start 04/26/17 at 14:00 Amikacin Sulfate/ Sodium Chloride (Amikacin/NS) 254 ml @ 254 mls/hr Q24H IVPB Last administered on 04/27/17 16:43; Admin Dose 254 MLS/HR; Start 04/26/17 at 17:00 Miscellaneous Information (*Rx Drug Level Order Reminder*) AMIKACIN TROUGH ON ... ONCE ONCE XX ; Start 04/28/17 at 16:00; Stop 04/28/17 at 16:01 Assessment/Plan Chief Complaint/Hosp Course Imp: s/p svt Concern for bowel obstruction pending colonoscopy today. chronic resp failure. decub stage IV. PLAN: 1. Continue mechanical ventilation. 2. Continue surgical recommendations., Colonoscopy today. May eventually require ostomy. 3. Broad-spectrum antibiotics. 4. Wound care. 5. Deep venous thrombosis and gastrointestinal prophylaxis. Problems: JIMMIE BARTON MD, [facility] Apr 28, 2017 11:44
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
--- NOTE | 2017-04-28 15:29 | OPPN ---
Date/Time of Note Date/Time of Note DATE: 04/28/17 TIME: 15:28 Proc Note GI Procedure Date 04/28/17 Indication: diagnostic Pre-procedure Diagnosis Rectosigmoid stricture Post-procedure Diagnosis Normal: All the way into cecum Procedure Performed: Colonoscopy Surgeon see signature line Senior Planning Manager none Anesthesia Type: MAC Tourniquet Time none EBL none Transfusion required none Biopsy 1: None Grafts/Implants none Tubes/Drains none Complication(s) none Disposition: PACU, other (Procedure was done bedside in ICU) Procedure Description Procedure dictated JAMES GOODWIN MD Apr 28, 2017 15:29
[2017-04-28] MEDS: SOD CHLORIDE 0.9% IVPB SCH (16:34)
[2017-04-28] MEDS: DAPTOMYCIN IVPB SCH (16:34)
[2017-04-28] MEDS: ONDANSETRON 4 MG INJ IV PRN (16:56)
[2017-04-28] MEDS: AMIKACIN 1,000 MG in SOD CHLORIDE 0.9% 250 ML IVPB SCH (18:01)
[2017-04-28] MEDS: DIPHENHYDRAMINE 50 MG INJ IV PRN (18:01)
[2017-04-29] VITALS (23 sets, daily range): BP systolic 109–155; BP diastolic 55–101; PULSE 100–114; RESP 18–23
[2017-04-29] MEDS: VANCOMYCIN HCL 250 MG/5ML POSYG PO SCH ×5 (00:27→23:25)
[2017-04-29] MEDS: ACCU-CHEK XX SCH (01:13)
[2017-04-29] MEDS: morphine 2 MG INJ IV PRN ×2 (02:14→08:19)
[2017-04-29] MEDS: LORAZEPAM 2 MG INJ IV PRN ×4 (04:06→23:25)
[2017-04-29] MEDS: metroNIDAZOLE 500 MG/NS (PMX) 100 ML IVPB SCH ×3 (05:24→20:13)
[2017-04-29] MEDS: METOCLOPRAMIDE 10 MG INJ IV SCH ×4 (05:24→23:25)
[2017-04-29] MEDS ORDERED: morphine 2 MG INJ IV ONE (05:30)
--- NOTE | 2017-04-29 06:19 | GILP ---
DATE OF PROCEDURE: PROCEDURE PERFORMED: Colonoscopy with biopsy. INDICATION: A 26-year-old male undergoing this procedure for ileus and possible stricture in the si gmoid colon. The purpose is to evaluate the colon and rule out either volvulus or colonic stricture . The risk of the procedure, related and unrelated complications, anesthetic risks, alternatives di scussed. Informed consent was obtained. DESCRIPTION OF PROCEDURE: The patient was brought to the GI lab, sedated by Dr. Cosme. After obta ining sedation, scope was passed with much ease into rectum, advanced through sigmoid, descending, t ransverse colon all the way into cecum and finally into terminal ileum. Terminal ileum was normal. Rest of the colon appeared normal. No gross lesion, no stricture identified, mucosa appeared cisco l. Retroversion done. Small hemorrhoids identified. Scope was straightened out and removed with g ood patient tolerance. IMPRESSION: 1. Normal all the way into the cecum. 2. Normal terminal ileum. 3. Small external hemorrhoids. PLAN: The patient is to stay on a stool softener. Dictated By: JAMES GOODWIN MD PJ/NTS Conf#: [id number] DID#: [id number] CC: Dr. Rushing; JIMMIE BARTON MD; SVEN WALLACE MD;*End*
[2017-04-29] MEDS: MULTIVITAMINS 30 ML CUP GTB SCH (08:18)
[2017-04-29] MEDS: SERTRALINE 50 MG TAB PEG SCH (08:18)
[2017-04-29] MEDS: ASCORBIC ACID 500 MG TAB GTB SCH ×2 (08:19→20:12)
[2017-04-29] MEDS: FAMOTIDINE 20 MG TAB GTB SCH ×2 (08:19→20:12)
[2017-04-29] MEDS: ZINC SULFATE 220 MG CAP GTB SCH (08:19)
[2017-04-29] MEDS: COLLAGENASE 30 GM TUBE TOP SCH (08:21)
[2017-04-29] MEDS: SODIUM HYPOCHLORITE 1/40% 1L IRRIG IRR SCH ×2 (08:21→20:13)
--- NOTE | 2017-04-29 10:54 | PN ---
Date/Time of Note Date/Time of Note DATE: 04/29/17 TIME: 10:43 Assessment/Plan Lines/Catheters IV Catheter Type (from [facility]): Mid Line Schumacher in Place (from [facility]): Yes Assessment/Plan Chief Complaint/Hosp Course 1. Small bowel obstruction from ?distal colon pathology: now w bowel function to rectal tube; likely resolved: s/p colonoscopy -rectal tube to contain feces away from sacral wound -ivf -monitor -eventual ostomy after colonoscopy 2. Gtube dislodgement -found at subq; replaced by gi -monitor 3. Leukocytosis: likely 2/ #1+/-2 +/- 6, min temp today -as above 4. Microcytic, hypochromic anemia: -monitor -transfuse as needed -further workup per medical team 5. VDRF -pulm toilet -respiratory treatments 6. Sacral wound: + cultures -debridement prn -local care bid -frequent turning and off-loading -low air loss mattress -vitamin c -short term zinc -optimize nutrition -cultures 7. Sinus tachycardia: s/p amio drip -per cards Thank you. Patient seen and examined in collaboration with Dr. Kevin Rushing. Problems: Subjective 24 Hr Interval Summary s/p colonoscopy. Pending ostomy. Tachycardia. No fevers, chills, sob, congested cough, cp, palpitations, blanco, dizziness, n/v/d/dysuria. Exam/Review of Systems Vital Signs Vitals Vital Signs Date Time Temp Pulse Resp B/P Pulse Ox O2 Delivery O2 Flow Rate FiO2 04/29/17 08:26 114 04/29/17 08:00 35 04/29/17 07:53 98.2 20 109/55 94 04/27/17 16:17 Mechanical Ventilator Intake and Output 04/28/17 04/28/17 04/29/17 15:00 23:00 07:00 Intake Total 1580 ml 1410 ml Output Total 600 ml 1600 ml Balance 980 ml -190 ml Exam Free Text/Dictation Constitutional: alert, oriented Psych: anxiety Head: atraumatic, normocephalic Eyes: nl lids, nl sclera ENMT: mucosa pink and moist, nl nasal mucosa & septum Neck: non-tender, other (trach), supple Respiratory: No labored breathing Cardiovascular: rrr, sr Gastrointestinal: distended (mod ), soft, No tender Genitourinary - Male: nl penis, nl scrotum Musculoskeletal: nl extremities to inspection, No muscle tone Extremities: normal pulses, No edema Neurological: other (quadriplegia), No nl strength Skin: wounds - nurses notes and pics: sacral wound packed, malodorous, erythema periwound Results Result Diagram: 04/28/17 0804/28/17 0821 REGINO GLOVER NP Apr 29, 2017 10:54
[2017-04-29] MEDS: DIPHENHYDRAMINE 50 MG INJ IV PRN ×2 (11:09→18:25)
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
[2017-04-29] MEDS: HYDROCODONE/APAP (10/325) TAB PO PRN ×2 (14:51→20:13)
[2017-04-29] MEDS: DAPTOMYCIN IVPB SCH (16:13)
[2017-04-29] MEDS: SOD CHLORIDE 0.9% IVPB SCH (16:13)
[2017-04-29] MEDS: AMIKACIN 1,000 MG in SOD CHLORIDE 0.9% 250 ML IVPB SCH (18:25)
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
--- NOTE | 2017-04-29 20:35 | CONS ---
Date/Time of Note Date/Time of Note DATE: 04/29/17 TIME: 20:33 Assessment/Plan Assessment/Plan Additional Assessment/Plan IMPRESSION: 1. Dislodgement of G-tube which was successfully placed. 2. Ventilator-dependent respiratory failure. 3. Quadriplegia. 4. Sacral ulcer. 5. Anemia. 6. Sinus tachycardia with preserved ejection fraction. 7. Depression. 8. Ileus totally resolved, colonoscopy no evidence of obstruction patient has a normal looking colon Plan Colostomy as per surgeon Continue present care Consultation Date/Type/Reason Admit Date/Time Apr 21, 2017 at 18:32 Initial Consult Date 04/22/17 Type of Consultation: ID [id number] HR Interval Summary Constitutional: improved, no complaints Exam/Review of Systems Vital Signs Vitals Vital Signs Date Time Temp Pulse Resp B/P Pulse Ox O2 Delivery O2 Flow Rate FiO2 04/29/17 20:07 100.0 101 18 114/57 98 04/29/17 17:45 35 04/27/17 16:17 Mechanical Ventilator Intake and Output 04/28/17 04/28/17 04/29/17 15:00 23:00 07:00 Intake Total 1580 ml 1410 ml Output Total 600 ml 1600 ml Balance 980 ml -190 ml Exam Constitutional: alert, oriented, well developed Psych: nl mood/affect, no complaints Head: atraumatic, normocephalic Eyes: EOMI, PERRL, nl conjunctiva, nl lids, nl sclera ENMT: nl external ears & nose, nl lips & teeth, nl nasal mucosa & septum Neck: non-tender, supple Respiratory: clear to auscultation, normal air movement Cardiovascular: nl pulses, regular rate and rhythm Gastrointestinal: nl liver, spleen, non-tender, soft Musculoskeletal: nl extremities to inspection, nl gait and stance Extremities: normal pulses 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, nl mental status, nl speech, nl strength Skin: nl turgor, No rash or lesions Lymph: nl lymph nodes Results Result Diagram: 04/28/1782004/28/17 0821 Results 24 hrs Laboratory Tests Test 04/28/17 20:57 04/29/17 06:34 Bedside Glucose 96 Lab Scanned Report REFERENCE LAB Medications Medications Current Medications Ondansetron HCl (Zofran Inj) 4 mg Q6H PRN IV NAUSEA AND/OR VOMITING Last administered on 04/28/17 16:56; Admin Dose 4 MG; Start 04/21/17 at 20:00 Lorazepam (Ativan) 1 mg Q2H PRN IV ANXIETY Last administered on 04/29/17 18: 26; Admin Dose 1 MG; Start 04/21/17 at 20:00 Metoclopramide HCl (Reglan) 10 mg Q6 IV Last administered on 04/29/17 18:25; Admin Dose 10 MG; Start 04/22/17 at 18:00 Sodium Hypochlorite (Dakin'S (Dilute 1/40%)) 1 applic BID IRR Last administered on 04/29/17 20:13; Admin Dose 1 APPLIC; Start 04/23/17 at 14:30 Collagenase (Santyl) 1 applic DAILY TOP Last administered on 04/29/17 08:21; Admin Dose 1 APPLIC; Start 04/23/17 at 16:00 Diphenhydramine HCl (Benadryl) 25 mg Q6H PRN IV Itchiness Last administered on 04/29/17 18:25; Admin Dose 25 MG; Start 04/23/17 at 21:00 Vancomycin HCl 250 mg 250 mg Q6 PO Last administered on 04/29/17 18:29; Admin Dose 250 MG; Start 04/24/17 at 12:00 Metronidazole (Flagyl 500 Mg (Pmx)) 100 ml @ 100 mls/hr Q8 IVPB Last administered on 04/29/17 20:13; Admin Dose 100 MLS/HR; Start 04/24/17 at 14: 00 Sertraline HCl (Zoloft) 50 mg DAILY PEG Last administered on 04/29/17 08:18; Admin Dose 50 MG; Start 04/24/17 at 12:30 Zinc Sulfate (Zinc Sulfate) 220 mg DAILY GTB Last administered on 04/29/17 08 :19; Admin Dose 220 MG; Start 04/25/17 at 09:00 Ascorbic Acid (Vitamin C) 500 mg BID GTB Last administered on 04/29/17 20:12 ; Admin Dose 500 MG; Start 04/24/17 at 21:00 Multivitamins (Multivitamin) 30 ml DAILY GTB Last administered on 04/29/17 08 :18; Admin Dose 30 ML; Start 04/25/17 at 09:00 Famotidine 20 mg 20 mg BID GTB Last administered on 04/29/17 20:12; Admin Dose 20 MG; Start 04/24/17 at 21:00 Daptomycin/Sodium Chloride (Cubicin/NS) 100 ml @ 200 mls/hr Q24H IVPB Last administered on 04/29/17 16:13; Admin Dose 200 MLS/HR; Start 04/26/17 at 16: 00 Amikacin Sulfate AMIKACIN PER PHARMACY NOTE XX ; Start 04/26/17 at 14:00 Amikacin Sulfate/ Sodium Chloride (Amikacin/NS) 254 ml @ 254 mls/hr Q24H IVPB Last administered on 04/29/17 18:25; Admin Dose 254 MLS/HR; Start 04/26/17 at 17:00 Acetaminophen/ Hydrocodone Bitart ([place] (10/325)) 1 tab Q4H PRN PO PAIN Last administered on 04/29/17 20:13; Admin Dose 1 TAB; Start 04/29/17 at 09:30 JAMES GOODWIN MD Apr 29, 2017 20:35
[2017-04-29] MEDS: ALBUTEROL HFA 8 GM INHALER INH PRN (21:41)
[2017-04-29] MEDS: IPRATROPIUM (HFA) 12.9 GM INHALER INH PRN (21:41)
[2017-04-30] VITALS (46 sets, daily range): BP systolic 111–148; BP diastolic 50–80; PULSE 90–131; RESP 13–27
[2017-04-30] MEDS: HYDROCODONE/APAP (10/325) TAB PO PRN ×4 (00:20→20:22)
[2017-04-30] MEDS: DIPHENHYDRAMINE 50 MG INJ IV PRN ×3 (02:15→21:44)
[2017-04-30] MEDS: LORAZEPAM 2 MG INJ IV PRN ×7 (03:16→22:17)
[2017-04-30] MEDS ORDERED: PEG/ELECTROLYTES 4L BTL GTB ONE (06:00)
[2017-04-30] MEDS: metroNIDAZOLE 500 MG/NS (PMX) 100 ML IVPB SCH ×3 (06:11→22:02)
[2017-04-30] MEDS: VANCOMYCIN HCL 250 MG/5ML POSYG PO SCH ×3 (06:11→17:10)
[2017-04-30] MEDS: METOCLOPRAMIDE 10 MG INJ IV SCH ×3 (06:11→17:10)
[2017-04-30 06:20] LABS: BASOPHIL # 0.1 10^3/ul (0.0-0.1); BASOPHILS % 0.6 % (0.0-2.0); EOSINOPHILS # 0.6 10^3/ul (0.0-0.5); EOSINOPHILS % 6.1 % (0.0-7.0); HEMATOCRIT 29.5 % (42.0-52.0); HEMOGLOBIN 8.9 g/dl (14.0-18.0); LYMPHOCYTES # 2.5 10^3/ul (0.8-2.9); LYMPHOCYTES % 26.7 % (15.0-51.0); MEAN CORPUSCULAR HEMOGLOBIN 24.5 pg (29.0-33.0); MEAN CORPUSCULAR HGB CONC 30.2 g/dl (32.0-37.0); MEAN PLATELET VOLUME 9.5 fl (7.4-10.4); MONOCYTE # 0.8 10^3/ul (0.3-0.9); MONOCYTES % 8.1 % (0.0-11.0); NEUTROPHIL # 5.5 10^3/ul (1.6-7.5); NEUTROPHILS % 58.1 % (39.0-77.0); PLATELET COUNT 500 10^3/UL (140-415); RED BLOOD COUNT 3.64 10^6/ul (4.70-6.10); RED CELL DISTRIBUTION WIDTH 17.4 % (11.5-14.5); WHITE BLOOD COUNT 9.4 10^3/ul (4.8-10.8)
[2017-04-30 06:41] LABS: INR 1.37; PROTIME 16.9 Sec (12.2-14.2); PT RATIO 1.3
[2017-04-30 06:42] LABS: PARTIAL THROMBOPLASTIN TIME 35.4 Sec (25.0-35.0)
[2017-04-30 06:44] LABS: ALBUMIN/GLOBULIN RATIO 0.81; BILIRUBIN,INDIRECT 0.1 mg/dl (0-1.1); BILIRUBIN,TOTAL 0.1 mg/dl (0.2-1.3); CALCIUM 9.1 mg/dl (8.4-10.2); CREATININE 0.33 mg/dl (0.61-1.24); POTASSIUM 3.1 mmol/L (3.5-5.1); TOTAL PROTEIN 6.7 g/dl (6.1-8.1)
[2017-04-30] MEDS: MULTIVITAMINS 30 ML CUP GTB SCH (08:14)
[2017-04-30] MEDS: FAMOTIDINE 20 MG TAB GTB SCH ×2 (08:14→20:23)
[2017-04-30] MEDS: ASCORBIC ACID 500 MG TAB GTB SCH ×2 (08:14→20:23)
[2017-04-30] MEDS: ZINC SULFATE 220 MG CAP GTB SCH (08:14)
[2017-04-30] MEDS: SERTRALINE 50 MG TAB PEG SCH (08:14)
[2017-04-30] MEDS: SODIUM HYPOCHLORITE 1/40% 1L IRRIG IRR SCH ×2 (08:15→21:55)
[2017-04-30] MEDS: IPRATROPIUM (HFA) 12.9 GM INHALER INH PRN (09:38)
[2017-04-30] MEDS: ALBUTEROL HFA 8 GM INHALER INH PRN (09:38)
[2017-04-30] MEDS ORDERED: POTASSIUM CHLORIDE (SR) 20 MEQ TAB PO STA (10:09)
[2017-04-30] MEDS: COLLAGENASE 30 GM TUBE TOP SCH (10:17)
--- NOTE | 2017-04-30 13:22 | RADRPT ---
Vent Rate: 111 bpm RR Interval: 0 msec KS Interval: 168 msec QRS Duration: 94 msec QT Interval: 320 msec QTC Interval: 435 msec P-R-T [place]: 54 - 55 - 49 degrees Sinus tachycardia Incomplete right bundle branch block Borderline ECG Electronically Signed By: Hugh Shaw [id number]
--- NOTE | 2017-04-30 13:32 | CONS ---
Date/Time of Note Date/Time of Note DATE: 04/30/17 TIME: 13:32 Assessment/Plan Assessment/Plan Additional Assessment/Plan Additional Assessment/Plan IMPRESSION: 1. Dislodgement of G-tube which was successfully placed. 2. Ventilator-dependent respiratory failure. 3. Quadriplegia. 4. Sacral ulcer. 5. Anemia. 6. Sinus tachycardia with preserved ejection fraction. 7. Depression. 8. Ileus totally resolved, colonoscopy no evidence of obstruction patient has a normal looking colon Plan Colostomy as per surgeon Continue present care Consultation Date/Type/Reason Admit Date/Time Apr 21, 2017 at 18:32 Initial Consult Date 04/22/17 Type of Consultation: ID [id number] HR Interval Summary Constitutional: improved, no complaints Exam/Review of Systems Vital Signs Vitals Vital Signs Date Time Temp Pulse Resp B/P Pulse Ox O2 Delivery O2 Flow Rate FiO2 04/30/17 12:00 125 04/30/17 11:46 99.1 20 116/71 99 04/30/17 11:20 35 04/27/17 16:17 Mechanical Ventilator Intake and Output 04/29/17 04/29/17 04/30/17 15:00 23:00 07:00 Intake Total 1860 ml 500 ml Output Total 1900 ml 1600 ml Balance -40 ml -1100 ml Exam Constitutional: alert, oriented, well developed Psych: nl mood/affect, no complaints Head: atraumatic, normocephalic Eyes: EOMI, PERRL, nl conjunctiva, nl lids, nl sclera ENMT: nl external ears & nose, nl lips & teeth, nl nasal mucosa & septum Neck: non-tender, supple Respiratory: clear to auscultation, normal air movement Cardiovascular: nl pulses, regular rate and rhythm Gastrointestinal: nl liver, spleen, non-tender, soft Musculoskeletal: nl extremities to inspection, nl gait and stance Extremities: normal pulses Neurological: HOSPITAL COORDINATOR II-XII intact, nl mental status, nl speech, nl strength Skin: nl turgor, No rash or lesions Lymph: nl lymph nodes Results Result Diagram: 04/30/17 0603 04/30/17 0603 Results 24 hrs Laboratory Tests Test 04/30/17 06:03 White Blood Count 9.4 Red Blood Count 3.64 L Hemoglobin 8.9 L Hematocrit 29.5 L Mean Corpuscular Volume 81.0 L Mean Corpuscular Hemoglobin 24.5 L Mean Corpuscular Hemoglobin Concent 30.2 L Red Cell Distribution Width 17.4 H Platelet Count 500 H Mean Platelet Volume 9.5 Neutrophils % 58.1 Lymphocytes % 26.7 Monocytes % 8.1 Eosinophils % 6.1 Basophils % 0.6 Nucleated Red Blood Cells % 0.0 Neutrophils # 5.5 Lymphocytes # 2.5 Monocytes # 0.8 Eosinophils # 0.6 H Basophils # 0.1 Nucleated Red Blood Cells # 0.0 Prothrombin Time 16.9 H Prothrombin Time Ratio 1.3 INR International Normalized Ratio 1.37 Activated Partial Thromboplast Time 35.4 H Sodium Level 140 Potassium Level 3.1 L Chloride Level 102 Carbon Dioxide Level 28 Anion Gap 13 Blood Urea Nitrogen 4 L Creatinine 0.33 L Glucose Level 91 Calcium Level 9.1 Total Bilirubin 0.1 L Direct Bilirubin 0.00 Indirect Bilirubin 0.1 Aspartate Amino Transf (AST/SGOT) 24 Alanine Aminotransferase (ALT/SGPT) 29 Alkaline Phosphatase 53 Total Protein 6.7 Albumin 3.0 L Globulin 3.70 H Albumin/Globulin Ratio 0.81 Medications Medications Current Medications Ondansetron HCl (Zofran Inj) 4 mg Q6H PRN IV NAUSEA AND/OR VOMITING Last administered on 04/28/17 16:56; Admin Dose 4 MG; Start 04/21/17 at 20:00 Lorazepam (Ativan) 1 mg Q2H PRN IV ANXIETY Last administered on 04/30/17 11: 18; Admin Dose 1 MG; Start 04/21/17 at 20:00 Metoclopramide HCl (Reglan) 10 mg Q6 IV Last administered on 04/30/17 11:18; Admin Dose 10 MG; Start 04/22/17 at 18:00 Sodium Hypochlorite (Dakin'S (Dilute 1/40%)) 1 applic BID IRR Last administered on 04/30/17 08:15; Admin Dose 1 APPLIC; Start 04/23/17 at 14:30 Collagenase (Santyl) 1 applic DAILY TOP Last administered on 04/30/17 10:17; Admin Dose 1 APPLIC; Start 04/23/17 at 16:00 Diphenhydramine HCl (Benadryl) 25 mg Q6H PRN IV Itchiness Last administered on 04/30/17 09:42; Admin Dose 25 MG; Start 04/23/17 at 21:00 Vancomycin HCl 250 mg 250 mg Q6 PO Last administered on 04/30/17 11:18; Admin Dose 250 MG; Start 04/24/17 at 12:00 Metronidazole (Flagyl 500 Mg (Pmx)) 100 ml @ 100 mls/hr Q8 IVPB Last administered on 04/30/17 06:11; Admin Dose 100 MLS/HR; Start 04/24/17 at 14: 00 Sertraline HCl (Zoloft) 50 mg DAILY PEG Last administered on 04/30/17 08:14; Admin Dose 50 MG; Start 04/24/17 at 12:30 Zinc Sulfate (Zinc Sulfate) 220 mg DAILY GTB Last administered on 04/30/17 08 :14; Admin Dose 220 MG; Start 04/25/17 at 09:00 Ascorbic Acid (Vitamin C) 500 mg BID GTB Last administered on 04/30/17 08:14 ; Admin Dose 500 MG; Start 04/24/17 at 21:00 Multivitamins (Multivitamin) 30 ml DAILY GTB Last administered on 04/30/17 08 :14; Admin Dose 30 ML; Start 04/25/17 at 09:00 Famotidine 20 mg 20 mg BID GTB Last administered on 04/30/17 08:14; Admin Dose 20 MG; Start 04/24/17 at 21:00 Daptomycin/Sodium Chloride (Cubicin/NS) 100 ml @ 200 mls/hr Q24H IVPB Last administered on 04/29/17 16:13; Admin Dose 200 MLS/HR; Start 04/26/17 at 16: 00 Amikacin Sulfate AMIKACIN PER PHARMACY NOTE XX ; Start 04/26/17 at 14:00 Amikacin Sulfate/ Sodium Chloride (Amikacin/NS) 254 ml @ 254 mls/hr Q24H IVPB Last administered on 04/29/17 18:25; Admin Dose 254 MLS/HR; Start 04/26/17 at 17:00 Acetaminophen/ Hydrocodone Bitart ([place] ([address])) 1 tab Q4H PRN PO PAIN Last administered on 04/30/17 11:17; Admin Dose 1 TAB; Start 04/29/17 at 09:30 JAMES GOODWIN MD Apr 30, 2017 13:32
[2017-04-30] MEDS: SOD CHLORIDE 0.9% IVPB SCH (15:02)
[2017-04-30] MEDS: DAPTOMYCIN IVPB SCH (15:02)
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
--- NOTE | 2017-04-30 16:25 | CONS ---
Date/Time of Note Date/Time of Note DATE: 04/30/17 TIME: 16:24 Consult Date/Type/Reason Admit Date/Time Apr 21, 2017 at 18:32 Initial Consult Date 04/22/17 Type of Consultation: Pulmonary Subjective Patient remains stable this morning. Pending diverting colostomy. Objective Vital Signs Date Time Temp Pulse Resp B/P Pulse Ox O2 Delivery O2 Flow Rate FiO2 04/30/17 16:00 98.8 04/30/17 15:24 117 20 118/76 98 04/30/17 11:20 35 04/27/17 16:17 Mechanical Ventilator Intake and Output 04/29/17 04/29/17 04/30/17 15:00 23:00 07:00 Intake Total 1860 ml 500 ml Output Total 1900 ml 1600 ml Balance -40 ml -1100 ml Exam PHYSICAL EXAMINATION: GENERAL: Young gentleman comfortable at rest no acute distress VITAL SIGNS: NECK: Trach site clean and intact. CARDIAC: S1, S2, no added sounds or murmurs. CHEST: Diminished air entry bilaterally. ABDOMEN: Soft, nontender. No guarding or rebound. EXTREMITIES: No cyanosis, clubbing, 1+ edema. NEUROLOGIC: Generalized weakness. Stage IV decubitus ulcer Results/Medications Result Diagram: 04/30/17 0603 04/30/17 0603 Results 24 hrs Laboratory Tests Test 04/30/17 06:03 White Blood Count 9.4 Red Blood Count 3.64 L Hemoglobin 8.9 L Hematocrit 29.5 L Mean Corpuscular Volume 81.0 L Mean Corpuscular Hemoglobin 24.5 L Mean Corpuscular Hemoglobin Concent 30.2 L Red Cell Distribution Width 17.4 H Platelet Count 500 H Mean Platelet Volume 9.5 Neutrophils % 58.1 Lymphocytes % 26.7 Monocytes % 8.1 Eosinophils % 6.1 Basophils % 0.6 Nucleated Red Blood Cells % 0.0 Neutrophils # 5.5 Lymphocytes # 2.5 Monocytes # 0.8 Eosinophils # 0.6 H Basophils # 0.1 Nucleated Red Blood Cells # 0.0 Prothrombin Time 16.9 H Prothrombin Time Ratio 1.3 INR International Normalized Ratio 1.37 Activated Partial Thromboplast Time 35.4 H Sodium Level 140 Potassium Level 3.1 L Chloride Level 102 Carbon Dioxide Level 28 Anion Gap 13 Blood Urea Nitrogen 4 L Creatinine 0.33 L Glucose Level 91 Calcium Level 9.1 Total Bilirubin 0.1 L Direct Bilirubin 0.00 Indirect Bilirubin 0.1 Aspartate Amino Transf (AST/SGOT) 24 Alanine Aminotransferase (ALT/SGPT) 29 Alkaline Phosphatase 53 Total Protein 6.7 Albumin 3.0 L Globulin 3.70 H Albumin/Globulin Ratio 0.81 Medications Current Medications Ondansetron HCl (Zofran Inj) 4 mg Q6H PRN IV NAUSEA AND/OR VOMITING Last administered on 04/28/17 16:56; Admin Dose 4 MG; Start 04/21/17 at 20:00 Lorazepam (Ativan) 1 mg Q2H PRN IV ANXIETY Last administered on 04/30/17 15: 50; Admin Dose 1 MG; Start 04/21/17 at 20:00 Metoclopramide HCl (Reglan) 10 mg Q6 IV Last administered on 04/30/17 11:18; Admin Dose 10 MG; Start 04/22/17 at 18:00 Sodium Hypochlorite (Dakin'S (Dilute 1/40%)) 1 applic BID IRR Last administered on 04/30/17 08:15; Admin Dose 1 APPLIC; Start 04/23/17 at 14:30 Collagenase (Santyl) 1 applic DAILY TOP Last administered on 04/30/17 10:17; Admin Dose 1 APPLIC; Start 04/23/17 at 16:00 Diphenhydramine HCl (Benadryl) 25 mg Q6H PRN IV Itchiness Last administered on 04/30/17 09:42; Admin Dose 25 MG; Start 04/23/17 at 21:00 Vancomycin HCl 250 mg 250 mg Q6 PO Last administered on 04/30/17 11:18; Admin Dose 250 MG; Start 04/24/17 at 12:00 Metronidazole (Flagyl 500 Mg (Pmx)) 100 ml @ 100 mls/hr Q8 IVPB Last administered on 04/30/17 13:24; Admin Dose 100 MLS/HR; Start 04/24/17 at 14: 00 Sertraline HCl (Zoloft) 50 mg DAILY PEG Last administered on 04/30/17 08:14; Admin Dose 50 MG; Start 04/24/17 at 12:30 Zinc Sulfate (Zinc Sulfate) 220 mg DAILY GTB Last administered on 04/30/17 08 :14; Admin Dose 220 MG; Start 04/25/17 at 09:00 Ascorbic Acid (Vitamin C) 500 mg BID GTB Last administered on 04/30/17 08:14 ; Admin Dose 500 MG; Start 04/24/17 at 21:00 Multivitamins (Multivitamin) 30 ml DAILY GTB Last administered on 04/30/17 08 :14; Admin Dose 30 ML; Start 04/25/17 at 09:00 Famotidine 20 mg 20 mg BID GTB Last administered on 04/30/17 08:14; Admin Dose 20 MG; Start 04/24/17 at 21:00 Daptomycin/Sodium Chloride (Cubicin/NS) 100 ml @ 200 mls/hr Q24H IVPB Last administered on 04/30/17 15:02; Admin Dose 200 MLS/HR; Start 04/26/17 at 16: 00 Amikacin Sulfate AMIKACIN PER PHARMACY NOTE XX ; Start 04/26/17 at 14:00 Amikacin Sulfate/ Sodium Chloride (Amikacin/NS) 254 ml @ 254 mls/hr Q24H IVPB Last administered on 04/29/17 18:25; Admin Dose 254 MLS/HR; Start 04/26/17 at 17:00 Acetaminophen/ Hydrocodone Bitart ([place] (10/325)) 1 tab Q4H PRN PO PAIN Last administered on 04/30/17 11:17; Admin Dose 1 TAB; Start 04/29/17 at 09:30 Assessment/Plan Chief Complaint/Hosp Course Imp: s/p svt Concern for bowel obstruction pending colonoscopy today. chronic resp failure. decub stage IV. PLAN: 1. Continue mechanical ventilation. 2. Continue surgical recommendations., Colonoscopy and then possible diverting colostomy. 3. Broad-spectrum antibiotics. 4. Wound care. 5. Deep venous thrombosis and gastrointestinal prophylaxis. Problems: JIMMIE BARTON MD, [facility] Apr 30, 2017 16:24
[2017-04-30] MEDS ORDERED: LIDOCAINE 1%/EPI 30 ML INJ ONE (17:12)
[2017-04-30] MEDS ORDERED: BUPIVACAINE 0.25% (MPF) 30 ML INJ ONE (17:12)
[2017-04-30] MEDS ORDERED: LORAZEPAM 2 MG INJ IM ONE (18:30)
--- NOTE | 2017-04-30 18:33 | PN ---
Date/Time of Note Date/Time of Note DATE: 04/30/17 TIME: 18:30 Assessment/Plan Lines/Catheters IV Catheter Type (from [facility]): Mid Line Schumacher in Place (from [facility]): Yes Assessment/Plan Chief Complaint/Hosp Course 1. Small bowel obstruction from ?distal colon pathology: now w bowel function to rectal tube; likely resolved: s/p colonoscopy -rectal tube to contain feces away from sacral wound -ivf -monitor -colonoscopy today 2. Gtube dislodgement -found at subq; replaced by gi -monitor 3. Leukocytosis: likely 2/2 #1+/-2 +/- 6,normalized -as above 4. Microcytic, hypochromic anemia: -monitor -transfuse as needed -further workup per medical team 5. VDRF -pulm toilet -respiratory treatments 6. Sacral wound: + cultures -debridement prn -local care bid -frequent turning and off-loading -low air loss mattress -vitamin c -short term zinc -optimize nutrition 7. Sinus tachycardia: s/p amio drip -per cards Thank you. Patient seen and examined in collaboration with Dr. Kevin Rushing. Problems: Subjective 24 Hr Interval Summary Anxious. Pending colostomy. No fevers, chills, sob, congested cough, cp, palpitations, blanco, dizziness, n/v/d/dysuria. Exam/Review of Systems Vital Signs Vitals Vital Signs Date Time Temp Pulse Resp B/P Pulse Ox O2 Delivery O2 Flow Rate FiO2 04/30/17 18:03 114 18 125/56 98 Mechanical Ventilator 04/30/17 17:30 35 04/30/17 16:00 98.8 Intake and Output 04/29/17 04/29/17 04/30/17 15:00 23:00 07:00 Intake Total 1860 ml 500 ml Output Total 1900 ml 1600 ml Balance -40 ml -1100 ml Exam Free Text/Dictation Constitutional: alert, oriented Psych: anxiety Head: atraumatic, normocephalic Eyes: nl lids, nl sclera ENMT: mucosa pink and moist, nl nasal mucosa & septum Neck: non-tender, other (trach), supple Respiratory: No labored breathing Cardiovascular: rrr, sr Gastrointestinal: distended (mod ), soft, No tender Genitourinary - Male: nl penis, nl scrotum Musculoskeletal: nl extremities to inspection, No muscle tone Extremities: normal pulses, No edema Neurological: other (quadriplegia), No nl strength Skin: wounds - nurses notes and pics: sacral wound packed, malodorous, erythema periwound Results Result Diagram: 04/30/17 0603 04/30/17 0603 REGINO GLOVER NP Apr 30, 2017 18:33
--- NOTE | 2017-04-30 19:23 | PN ---
Date/Time of Note Date/Time of Note DATE: 04/30/17 TIME: 19:17 Assessment/Plan Lines/Catheters IV Catheter Type (from Nrs): Mid Line Schumacher in Place (from Nrs): Yes Assessment/Plan Chief Complaint/Hosp Course 1. Constipation causing dilated bowel resolved. Colonoscopy negative. Patient was scheduled for surgery for today however after he talked to anesthesia and OR crew, apparently he changed his mind and does not want the surgery anymore bc of risks associated with surgery. -defer back to primary team for care 2. Gtube dislodgement eplaced by gi -nutrition 3. Leukocytosis: likely 2 #1+/-2 +/- 6, min temp today -as above 4. Microcytic, hypochromic anemia: -monitor -transfuse as needed -further workup per medical team 5. VDRF -pulm toilet -respiratory treatments 6. Sacral wound: + cultures -debridement prn -local care bid -frequent turning and off-loading -low air loss mattress -vitamin c -short term zinc -optimize nutrition -cultures 7. Sinus tachycardia: s/p amio drip -per cards Thank you Problems: Subjective 24 Hr Interval Summary Patient has changed his mind and does not want to proceed with surgery. Low grade temp. Tachycardia. No chills, sob, congested cough, cp, palpitations, blanco , dizziness, n/v/d/dysuria. Exam/Review of Systems Vital Signs Vitals Vital Signs Date Time Temp Pulse Resp B/P Pulse Ox O2 Delivery O2 Flow Rate FiO2 04/30/17 18:03 114 18 125/56 98 Mechanical Ventilator 04/30/17 17:30 35 04/30/17 16:00 98.8 Intake and Output 04/29/17 04/29/17 04/30/17 15:00 23:00 07:00 Intake Total 1860 ml 500 ml Output Total 1900 ml 1600 ml Balance -40 ml -1100 ml Exam Free Text/Dictation Constitutional: alert, oriented Psych: anxiety Head: atraumatic, normocephalic Eyes: nl lids, nl sclera ENMT: mucosa pink and moist, nl nasal mucosa & septum Neck: non-tender, other (trach), supple Respiratory: No labored breathing Cardiovascular: rrr, sr Gastrointestinal: distended (mod ), soft, No tender Genitourinary - Male: nl penis, nl scrotum Musculoskeletal: nl extremities to inspection, No muscle tone Extremities: normal pulses, No edema Neurological: other (quadriplegia), No nl strength Skin: wounds - nurses notes and pics: sacral wound packed, malodorous, erythema periwound Results Result Diagram: 04/30/17 0603 04/30/17 0603 DEX OLIVER MD Apr 30, 2017 19:23
[2017-04-30] MEDS: AMIKACIN 1,000 MG in SOD CHLORIDE 0.9% 250 ML IVPB SCH (20:23)
[2017-05-01] VITALS (23 sets, daily range): BP systolic 105–133; BP diastolic 55–83; PULSE 93–101; RESP 20–21
[2017-05-01] MEDS: METOCLOPRAMIDE 10 MG INJ IV SCH ×4 (01:00→17:16)
[2017-05-01] MEDS: VANCOMYCIN HCL 250 MG/5ML POSYG PO SCH ×4 (01:00→17:16)
[2017-05-01] MEDS: HYDROCODONE/APAP (10/325) TAB PO PRN ×4 (05:48→21:09)
[2017-05-01] MEDS: metroNIDAZOLE 500 MG/NS (PMX) 100 ML IVPB SCH ×3 (05:49→22:17)
[2017-05-01] MEDS: LORAZEPAM 2 MG INJ IV PRN ×3 (06:18→14:24)
[2017-05-01] MEDS: ALBUTEROL HFA 8 GM INHALER INH PRN ×3 (07:43→21:02)
[2017-05-01] MEDS: IPRATROPIUM (HFA) 12.9 GM INHALER INH PRN ×3 (07:43→21:01)
[2017-05-01] MEDS: SERTRALINE 50 MG TAB PEG SCH (08:03)
[2017-05-01] MEDS: MULTIVITAMINS 30 ML CUP GTB SCH (08:03)
[2017-05-01] MEDS: ASCORBIC ACID 500 MG TAB GTB SCH ×2 (08:03→20:55)
[2017-05-01] MEDS: SODIUM HYPOCHLORITE 1/40% 1L IRRIG IRR SCH ×2 (08:04→21:09)
[2017-05-01] MEDS: ZINC SULFATE 220 MG CAP GTB SCH (08:04)
[2017-05-01] MEDS: COLLAGENASE 30 GM TUBE TOP SCH (08:05)
[2017-05-01] MEDS: FAMOTIDINE 20 MG TAB GTB SCH ×2 (08:49→20:55)
--- NOTE | 2017-05-01 09:57 | CONS ---
Date/Time of Note Date/Time of Note DATE: 05/01/17 TIME: 09:55 Assessment/Plan Assessment/Plan Additional Assessment/Plan Ventilator setting; AC of 20, tidal volume 500, PEEP of 5, 35% FiO2. Assessment and recommendations; 1. Patient with history of quadriplegia which is ventilator dependent admitted for bowel obstruction with interval improvement. 2. Sacral and coccygeal decubitus ulcers, patient awaiting diverting colostomy. Continue current supportive care. Consultation Date/Type/Reason Admit Date/Time Apr 21, 2017 at 18:32 Initial Consult Date 04/22/17 Type of Consultation: Pulmonary 24 HR Interval Summary Free Text/Dictation Patient's condition remains stable. Remains awake and alert. Has remained hemodynamically stable. General exam; young male, morbidly obese, on ventilator via tracheostomy. Currently in no distress. Exam/Review of Systems Vital Signs Vitals Vital Signs Date Time Temp Pulse Resp B/P Pulse Ox O2 Delivery O2 Flow Rate FiO2 05/01/17 08:51 95 05/01/17 08:09 98.6 20 111/59 98 05/01/17 06:00 35 04/30/17 18:03 Mechanical Ventilator Intake and Output 04/30/17 04/30/17 05/01/17 15:00 23:00 07:00 Intake Total 200 ml 900 ml Output Total 3000 ml Balance 200 ml -2100 ml Exam HEENT exam; supple neck, JVD difficult to see because of short neck. Patient has fair dentition. Tracheostomy in place. Insertion site is clean. No neck masses. Chest exam; clear to auscultation. S1-S2 audible, no murmurs. Regular rhythm. Abdomen exam; soft, G-tube in place. No organomegaly. Bowel sounds audible. Back examination; dressing applied over sacrum. Extremity exam; no peripheral edema. AT RISK PARAPROFESSIONAL exam; patient has stable quadriplegia. Results Result Diagram: 04/30/17 0603 04/30/17 06 Medications Medications Current Medications Ondansetron HCl (Zofran Inj) 4 mg Q6H PRN IV NAUSEA AND/OR VOMITING Last administered on 04/28/17 16:56; Admin Dose 4 MG; Start 04/21/17 at 20:00 Lorazepam (Ativan) 1 mg Q2H PRN IV ANXIETY Last administered on 05/01/17 08: 45; Admin Dose 1 MG; Start 04/21/17 at 20:00 Metoclopramide HCl (Reglan) 10 mg Q6 IV Last administered on 05/01/17 05:49; Admin Dose 10 MG; Start 04/22/17 at 18:00 Sodium Hypochlorite (Dakin'S (Dilute 1/40%)) 1 applic BID IRR Last administered on 05/01/17 08:04; Admin Dose 1 APPLIC; Start 04/23/17 at 14:30 Collagenase (Santyl) 1 applic DAILY TOP Last administered on 05/01/17 08:05; Admin Dose 1 APPLIC; Start 04/23/17 at 16:00 Diphenhydramine HCl (Benadryl) 25 mg Q6H PRN IV Itchiness Last administered on 04/30/17 21:44; Admin Dose 25 MG; Start 04/23/17 at 21:00 Vancomycin HCl 250 mg 250 mg Q6 PO Last administered on 05/01/17 05:49; Admin Dose 250 MG; Start 04/24/17 at 12:00 Metronidazole (Flagyl 500 Mg (Pmx)) 100 ml @ 100 mls/hr Q8 IVPB Last administered on 05/01/17 05:49; Admin Dose 100 MLS/HR; Start 04/24/17 at 14: 00 Sertraline HCl (Zoloft) 50 mg DAILY PEG Last administered on 05/01/17 08:03; Admin Dose 50 MG; Start 04/24/17 at 12:30 Zinc Sulfate (Zinc Sulfate) 220 mg DAILY GTB Last administered on 05/01/17 08 :04; Admin Dose 220 MG; Start 04/25/17 at 09:00 Ascorbic Acid (Vitamin C) 500 mg BID GTB Last administered on 05/01/17 08:03 ; Admin Dose 500 MG; Start 04/24/17 at 21:00 Multivitamins (Multivitamin) 30 ml DAILY GTB Last administered on 05/01/17 08 :03; Admin Dose 30 ML; Start 04/25/17 at 09:00 Famotidine 20 mg 20 mg BID GTB Last administered on 05/01/17 08:49; Admin Dose 20 MG; Start 04/24/17 at 21:00 Daptomycin/Sodium Chloride (Cubicin/NS) 100 ml @ 200 mls/hr Q24H IVPB Last administered on 04/30/17 15:02; Admin Dose 200 MLS/HR; Start 04/26/17 at 16: 00 Amikacin Sulfate (Amikacin Iv Per Pharmacy) AMIKACIN PER PHARMACY NOTE XX ; Start 04/26/17 at 14:00 Acetaminophen/ Hydrocodone Bitart 1 tab 1 tab Q4H PRN PO PAIN Last administered on 05/01/17 05:48; Admin Dose 1 TAB; Start 04/29/17 at 09:30 Amikacin Sulfate/ Sodium Chloride (Amikacin/NS) 254 ml @ 254 mls/hr Q24H IVPB ; Start 05/01/17 at 20:00 DANIELLE JOINER May 01, 2017 09:57
[2017-05-01] MEDS: DIPHENHYDRAMINE 50 MG INJ IV PRN ×2 (13:07→23:18)
--- NOTE | 2017-05-01 13:56 | CONS ---
Date/Time of Note Date/Time of Note DATE: 05/01/17 TIME: 13:56 Assessment/Plan Assessment/Plan Additional Assessment/Plan Additional Assessment/Plan IMPRESSION: 1. Dislodgement of G-tube which was successfully placed. 2. Ventilator-dependent respiratory failure. 3. Quadriplegia. 4. Sacral ulcer. 5. Anemia. 6. Sinus tachycardia with preserved ejection fraction. 7. Depression. 8. Ileus totally resolved, colonoscopy no evidence of obstruction patient has a normal looking colon Plan Colostomy as per surgeon Continue present care pt. declined surgery. Consultation Date/Type/Reason Admit Date/Time Apr 21, 2017 at 18:32 Initial Consult Date 04/22/17 Type of Consultation: Pulmonary 24 HR Interval Summary Free Text/Dictation diarrhea Exam/Review of Systems Vital Signs Vitals Vital Signs Date Time Temp Pulse Resp B/P Pulse Ox O2 Delivery O2 Flow Rate FiO2 05/01/17 12:52 96 05/01/17 12:11 99.0 20 105/55 98 05/01/17 11:00 35 04/30/17 18:03 Mechanical Ventilator Intake and Output 04/30/17 04/30/17 05/01/17 15:00 23:00 07:00 Intake Total 200 ml 900 ml Output Total 3000 ml Balance 200 ml -2100 ml Exam Constitutional: alert, oriented, well developed Psych: nl mood/affect, no complaints Head: atraumatic, normocephalic Eyes: EOMI, PERRL, nl conjunctiva, nl lids, nl sclera ENMT: nl external ears & nose, nl lips & teeth, nl nasal mucosa & septum Neck: non-tender, supple Respiratory: clear to auscultation, normal air movement Cardiovascular: nl pulses, regular rate and rhythm Gastrointestinal: nl liver, spleen, non-tender, soft Musculoskeletal: nl extremities to inspection, nl gait and stance Extremities: normal pulses Neurological: TERMINAL SUPERVISOR II-XII intact, nl mental status, nl speech, nl strength Skin: nl turgor, No rash or lesions Lymph: nl lymph nodes Results Result Diagram: 04/30/17 0603 04/30/17 0603 Medications Medications Current Medications Ondansetron HCl (Zofran Inj) 4 mg Q6H PRN IV NAUSEA AND/OR VOMITING Last administered on 04/28/17t 16:56; Admin Dose 4 MG; Start 04/21/17 at 20:00 Lorazepam (Ativan) 1 mg Q2H PRN IV ANXIETY Last administered on 05/01/17 08: 45; Admin Dose 1 MG; Start 04/21/17 at 20:00 Metoclopramide HCl (Reglan) 10 mg Q6 IV Last administered on 05/01/17 12:00; Admin Dose 10 MG; Start 04/22/17 at 18:00 Sodium Hypochlorite (Dakin'S (Dilute 1/40%)) 1 applic BID IRR Last administered on 05/01/17 08:04; Admin Dose 1 APPLIC; Start 04/23/17 at 14:30 Collagenase (Santyl) 1 applic DAILY TOP Last administered on 05/01/17 08:05; Admin Dose 1 APPLIC; Start 04/23/17 at 16:00 Diphenhydramine HCl (Benadryl) 25 mg Q6H PRN IV Itchiness Last administered on 05/01/17 13:07; Admin Dose 25 MG; Start 04/23/17 at 21:00 Vancomycin HCl 250 mg 250 mg Q6 PO Last administered on 05/01/17 12:00; Admin Dose 250 MG; Start 04/24/17 at 12:00 Metronidazole (Flagyl 500 Mg (Pmx)) 100 ml @ 100 mls/hr Q8 IVPB Last administered on 05/01/17 13:06; Admin Dose 100 MLS/HR; Start 04/24/17 at 14: 00 Sertraline HCl (Zoloft) 50 mg DAILY PEG Last administered on 05/01/17 08:03; Admin Dose 50 MG; Start 04/24/17 at 12:30 Zinc Sulfate (Zinc Sulfate) 220 mg DAILY GTB Last administered on 05/01/17 08 :04; Admin Dose 220 MG; Start 04/25/17 at 09:00 Ascorbic Acid (Vitamin C) 500 mg BID GTB Last administered on 05/01/17 08:03 ; Admin Dose 500 MG; Start 04/24/17 at 21:00 Multivitamins (Multivitamin) 30 ml DAILY GTB Last administered on 05/01/17 08 :03; Admin Dose 30 ML; Start 04/25/17 at 09:00 Famotidine 20 mg 20 mg BID GTB Last administered on 11/18/17at 08:49; Admin Dose 20 MG; Start 04/24/17 at 21:00 Daptomycin/Sodium Chloride (Cubicin/NS) 100 ml @ 200 mls/hr Q24H IVPB Last administered on 04/30/17 15:02; Admin Dose 200 MLS/HR; Start 04/26/17 at 16: 00 Amikacin Sulfate (Amikacin Iv Per Pharmacy) AMIKACIN PER PHARMACY NOTE XX ; Start 04/26/17 at 14:00 Acetaminophen/ Hydrocodone Bitart 1 tab 1 tab Q4H PRN PO PAIN Last administered on 05/01/17 12:01; Admin Dose 1 TAB; Start 04/29/17 at 09:30 Amikacin Sulfate/ Sodium Chloride (Amikacin/NS) 254 ml @ 254 mls/hr Q24H IVPB ; Start 05/01/17 at 20:00 JAMES GOODWIN MD May 01, 2017 13:56
--- NOTE | 2017-05-01 14:42 | PN ---
Date/Time of Note Date/Time of Note DATE: 05/01/17 TIME: 14:41 Assessment/Plan Lines/Catheters IV Catheter Type (from Nrs): Mid Line Schumacher in Place (from Nrs): Yes Assessment/Plan Chief Complaint/Hosp Course 1. Constipation causing dilated bowel resolved. Colonoscopy negative. Patient was scheduled for surgery 04/30 however after he talked to anesthesia and OR crew, apparently he changed his mind and canceled surgery bc of risks associated with surgery. -defer back to primary team for care 2. Gtube dislodgement eplaced by gi -nutrition 3. Leukocytosis: likely 2 #1+/-2 +/- 6, min temp today -as above 4. Microcytic, hypochromic anemia: -monitor -transfuse as needed -further workup per medical team 5. VDRF -pulm toilet -respiratory treatments 6. Sacral wound: + cultures -debridement prn -local care bid -frequent turning and off-loading -low air loss mattress -vitamin c -short term zinc -optimize nutrition -cultures 7. Sinus tachycardia: s/p amio drip -per cards Thank you Problems: Subjective 24 Hr Interval Summary Patient changed his mind and canceled surgery last night right before going into the OR. Low grade temp. Tachycardia. No chills, sob, congested cough, cp , palpitations, blanco, dizziness, n/v/d/dysuria. Exam/Review of Systems Vital Signs Vitals Vital Signs Date Time Temp Pulse Resp B/P Pulse Ox O2 Delivery O2 Flow Rate FiO2 05/01/17 12:52 96 05/01/17 12:11 99.0 20 105/55 98 05/01/17 11:00 35 04/30/17 18:03 Mechanical Ventilator Intake and Output 04/30/17 04/30/17 05/01/17 15:00 23:00 07:00 Intake Total 200 ml 900 ml Output Total 3000 ml Balance 200 ml -2100 ml Exam Free Text/Dictation Constitutional: alert, oriented Psych: anxiety Head: atraumatic, normocephalic Eyes: nl lids, nl sclera ENMT: mucosa pink and moist, nl nasal mucosa & septum Neck: non-tender, other (trach), supple Respiratory: No labored breathing Cardiovascular: rrr, sr Gastrointestinal: distended (mod ), soft, No tender Genitourinary - Male: nl penis, nl scrotum Musculoskeletal: nl extremities to inspection, No muscle tone Extremities: normal pulses, No edema Neurological: other (quadriplegia), No nl strength Skin: wounds - nurses notes and pics: sacral wound packed, malodorous, erythema periwound Results Result Diagram: 04/30/17 0603 04/30/17 0603 DEX OLIVER MD May 01, 2017 14:42
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
[2017-05-01] MEDS: SOD CHLORIDE 0.9% IVPB SCH (15:53)
[2017-05-01] MEDS: DAPTOMYCIN IVPB SCH (15:53)
[2017-05-01] MEDS ORDERED: HYDROCORTISONE 1% 28 GM CR TOP PRN (17:00)
[2017-05-01] MEDS: AMIKACIN 1,000 MG in SOD CHLORIDE 0.9% 250 ML IVPB SCH (20:04)
[2017-05-02] VITALS (21 sets, daily range): BP systolic 113–123; BP diastolic 53–72; PULSE 93–113; RESP 20–23
[2017-05-02] MEDS: VANCOMYCIN HCL 250 MG/5ML POSYG PO SCH ×4 (00:14→17:41)
[2017-05-02] MEDS: METOCLOPRAMIDE 10 MG INJ IV SCH ×4 (00:14→17:41)
[2017-05-02] MEDS: LORAZEPAM 2 MG INJ IV PRN ×5 (01:03→20:40)
[2017-05-02] MEDS: metroNIDAZOLE 500 MG/NS (PMX) 100 ML IVPB SCH ×2 (05:56→13:09)
[2017-05-02] MEDS: HYDROCODONE/APAP (10/325) TAB PO PRN ×3 (06:06→20:40)
[2017-05-02 06:34] LABS: CREATININE 0.32 mg/dl (0.61-1.24)
[2017-05-02] MEDS: FAMOTIDINE 20 MG TAB GTB SCH ×2 (08:35→20:40)
[2017-05-02] MEDS: MULTIVITAMINS 30 ML CUP GTB SCH (08:36)
[2017-05-02] MEDS: ZINC SULFATE 220 MG CAP GTB SCH (08:36)
[2017-05-02] MEDS: COLLAGENASE 30 GM TUBE TOP SCH (08:36)
[2017-05-02] MEDS: ASCORBIC ACID 500 MG TAB GTB SCH ×2 (08:36→20:40)
[2017-05-02] MEDS: SERTRALINE 50 MG TAB PEG SCH (08:37)
[2017-05-02] MEDS: SODIUM HYPOCHLORITE 1/40% 1L IRRIG IRR SCH ×2 (08:37→23:37)
--- NOTE | 2017-05-02 10:42 | CONS ---
Date/Time of Note Date/Time of Note DATE: 05/02/17 TIME: 10:41 Assessment/Plan Assessment/Plan Additional Assessment/Plan Ventilator setting; AC of 20, tidal volume 500, PEEP of 5, 35% FiO2. Assessment and recommendations; 1. Patient admitted with sacral decubitus ulcer with history of quadriplegia and chronic respiratory failure. Currently on appropriate broad-spectrum antibiotic coverage. 2. Underlying obesity. 3. Patient awaiting diverting colostomy. Continue current supportive care. Consultation Date/Type/Reason Admit Date/Time Apr 21, 2017 at 18:32 Initial Consult Date 04/22/17 Type of Consultation: Pulmonary 24 HR Interval Summary Free Text/Dictation Patient's condition is stable. Remains awake and alert. Has remained hemodynamically stable. General exam; young male, on ventilator via tracheostomy, awake and alert. Currently in no distress. Exam/Review of Systems Vital Signs Vitals Vital Signs Date Time Temp Pulse Resp B/P Pulse Ox O2 Delivery O2 Flow Rate FiO2 05/02/17 08:41 98.8 107 21 123/56 98 05/02/17 07:25 35 04/30/17 18:03 Mechanical Ventilator Intake and Output 05/01/17 05/01/17 05/02/17 15:00 23:00 07:00 Intake Total 1360 ml 1424 ml 1020 ml Output Total 1800 ml 1800 ml 1000 ml Balance -440 ml -376 ml 20 ml Exam HEENT exam; supple neck, JVD difficult to see because of short neck. Patient has fair dentition. Pupils are midsize and reactive to light. Tracheostomy in place. Chest exam; clear to auscultation. S1-S2 audible, no murmurs. Regular rhythm. Abdomen exam; soft, G-tube in place. No organomegaly. Bowel sounds audible. Back examination; dressing applied over sacrum. Extremity exam; no peripheral edema. 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 Results Result Diagram: 04/30/17 0603 05/02/17 0534 Results 24 hrs Laboratory Tests Test 05/02/17 05:34 Blood Urea Nitrogen 5 L Creatinine 0.32 L Medications Medications Current Medications Ondansetron HCl (Zofran Inj) 4 mg Q6H PRN IV NAUSEA AND/OR VOMITING Last administered on 04/28/17t 16:56; Admin Dose 4 MG; Start 04/21/17 at 20:00 Lorazepam (Ativan) 1 mg Q2H PRN IV ANXIETY Last administered on 05/02/17 08: 46; Admin Dose 1 MG; Start 04/21/17 at 20:00 Metoclopramide HCl (Reglan) 10 mg Q6 IV Last administered on 05/02/17 05:55; Admin Dose 10 MG; Start 04/22/17 at 18:00 Sodium Hypochlorite (Dakin'S (Dilute 1/40%)) 1 applic BID IRR Last administered on 05/02/17 08:37; Admin Dose 1 APPLIC; Start 04/23/17 at 14:30 Collagenase (Santyl) 1 applic DAILY TOP Last administered on 05/02/17 08:36; Admin Dose 1 APPLIC; Start 04/23/17 at 16:00 Diphenhydramine HCl (Benadryl) 25 mg Q6H PRN IV Itchiness Last administered on 05/01/17 23:18; Admin Dose 25 MG; Start 04/23/17 at 21:00 Vancomycin HCl 250 mg 250 mg Q6 PO Last administered on 05/02/17 05:55; Admin Dose 250 MG; Start 04/24/17 at 12:00 Metronidazole (Flagyl 500 Mg (Pmx)) 100 ml @ 100 mls/hr Q8 IVPB Last administered on 05/02/17 05:56; Admin Dose 100 MLS/HR; Start 04/24/17 at 14: 00 Sertraline HCl (Zoloft) 50 mg DAILY PEG Last administered on 05/02/17 08:37; Admin Dose 50 MG; Start 04/24/17 at 12:30 Zinc Sulfate (Zinc Sulfate) 220 mg DAILY GTB Last administered on 05/02/17 08 :36; Admin Dose 220 MG; Start 04/25/17 at 09:00 Ascorbic Acid (Vitamin C) 500 mg BID GTB Last administered on 05/02/17 08:36 ; Admin Dose 500 MG; Start 04/24/17 at 21:00 Multivitamins (Multivitamin) 30 ml DAILY GTB Last administered on 05/02/17 08 :36; Admin Dose 30 ML; Start 04/25/17 at 09:00 Famotidine 20 mg 20 mg BID GTB Last administered on 05/02/17 08:35; Admin Dose 20 MG; Start 04/24/17 at 21:00 Daptomycin/Sodium Chloride (Cubicin/NS) 100 ml @ 200 mls/hr Q24H IVPB Last administered on 05/01/17 15:53; Admin Dose 200 MLS/HR; Start 04/26/17 at 16: 00 Amikacin Sulfate (Amikacin Iv Per Pharmacy) AMIKACIN PER PHARMACY NOTE XX ; Start 04/26/17 at 14:00 Acetaminophen/ Hydrocodone Bitart 1 tab 1 tab Q4H PRN PO PAIN Last administered on 05/02/17 06:06; Admin Dose 1 TAB; Start 04/29/17 at 09:30 Amikacin Sulfate/ Sodium Chloride (Amikacin/NS) 254 ml @ 254 mls/hr Q24H IVPB Last administered on 05/01/17 20:04; Admin Dose 254 MLS/HR; Start 05/01/17 at 20:00 Hydrocortisone (Hydrocortisone 1% Cr) 1 applic BID PRN TOP ITCHING; Start at 17:00 DANIELLE JOINER May 02, 2017 10:42
[2017-05-02] MEDS: ALBUTEROL HFA 8 GM INHALER INH PRN (11:20)
[2017-05-02 11:49] LABS: BASOPHILS % 0.4 % (0.0-2.0); EOSINOPHILS # 0.6 10^3/ul (0.0-0.5); EOSINOPHILS % 5.7 % (0.0-7.0); HEMOGLOBIN 8.4 g/dl (14.0-18.0); LYMPHOCYTES # 2.6 10^3/ul (0.8-2.9); LYMPHOCYTES % 23.5 % (15.0-51.0); MEAN CORPUSCULAR HEMOGLOBIN 24.4 pg (29.0-33.0); MEAN CORPUSCULAR VOLUME 81.4 fl (82.0-101.0); MEAN PLATELET VOLUME 9.5 fl (7.4-10.4); MONOCYTE # 0.5 10^3/ul (0.3-0.9); MONOCYTES % 4.7 % (0.0-11.0); NEUTROPHIL # 7.2 10^3/ul (1.6-7.5); NEUTROPHILS % 65.2 % (39.0-77.0); PLATELET COUNT 520 10^3/UL (140-415); RED BLOOD COUNT 3.44 10^6/ul (4.70-6.10); RED CELL DISTRIBUTION WIDTH 17.1 % (11.5-14.5)
[2017-05-02 12:07] LABS: ALBUMIN/GLOBULIN RATIO 0.93; CALCIUM 8.4 mg/dl (8.4-10.2); CREATININE 0.32 mg/dl (0.61-1.24); TOTAL PROTEIN 6.2 g/dl (6.1-8.1)
[2017-05-02] MEDS: DIPHENHYDRAMINE 50 MG INJ IV PRN (13:16)
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
[2017-05-02] MEDS ORDERED: POTASSIUM CHLORIDE (SR) 20 MEQ TAB PO STA (16:15)
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
[2017-05-02] MEDS: SOD CHLORIDE 0.9% IVPB SCH (17:59)
[2017-05-02] MEDS: DAPTOMYCIN IVPB SCH (17:59)
--- NOTE | 2017-05-02 18:36 | PN ---
Date/Time of Note Date/Time of Note DATE: 05/02/17 TIME: 18:35 Assessment/Plan Lines/Catheters IV Catheter Type (from Nrs): Mid Line Schumacher in Place (from Nrs): Yes Assessment/Plan Chief Complaint/Hosp Course 1. Constipation causing dilated bowel resolved. Colonoscopy negative. Patient was scheduled for surgery 04/30 however after he talked to anesthesia and OR crew, apparently he changed his mind and canceled surgery bc of risks associated with surgery. -defer back to primary team for care 2. Gtube dislodgement eplaced by gi -nutrition 3. Leukocytosis: likely 07/16 #1+/-2 +/- 6, min temp today -as above 4. Microcytic, hypochromic anemia: -monitor -transfuse as needed -further workup per medical team 5. VDRF -pulm toilet -respiratory treatments 6. Sacral wound: + cultures -debridement prn -local care bid -frequent turning and off-loading -low air loss mattress -vitamin c -short term zinc -optimize nutrition -cultures 7. Sinus tachycardia: s/p amio drip -per cards Thank you Problems: Subjective 24 Hr Interval Summary Patient cancelled surgery because he is afraid of the risks involved. Leukocytosis. Tachycardia. No chills, sob, congested cough, cp, palpitations, blanco, dizziness, n/v/d/dysuria. Exam/Review of Systems Vital Signs Vitals Vital Signs Date Time Temp Pulse Resp B/P Pulse Ox O2 Delivery O2 Flow Rate FiO2 05/02/17 17:10 94 20 97 35 05/02/17 12:16 98.5 113/62 04/30/17 18:03 Mechanical Ventilator Intake and Output 05/01/17 05/01/17 05/02/17 15:00 23:00 07:00 Intake Total 1360 ml 1424 ml 1020 ml Output Total 1800 ml 1800 ml 1000 ml Balance -440 ml -376 ml 20 ml Exam Free Text/Dictation Constitutional: alert, oriented Psych: anxiety Head: atraumatic, normocephalic Eyes: nl lids, nl sclera ENMT: mucosa pink and moist, nl nasal mucosa & septum Neck: non-tender, other (trach), supple Respiratory: No labored breathing Cardiovascular: rrr, sr Gastrointestinal: distended (mod ), soft, No tender Genitourinary - Male: nl penis, nl scrotum Musculoskeletal: nl extremities to inspection, No muscle tone Extremities: normal pulses, No edema Neurological: other (quadriplegia), No nl strength Skin: wounds - nurses notes and pics: sacral wound packed, malodorous, erythema periwound Results Result Diagram: 05/02/17 1105 05/02/17 1105 DEX OLIVER MD May 02, 2017 18:36
--- NOTE | 2017-05-02 19:45 | CONS ---
Date/Time of Note Date/Time of Note DATE: 05/02/17 TIME: 19:44 Assessment/Plan Assessment/Plan Additional Assessment/Plan IMPRESSION: 1. Dislodgement of G-tube which was successfully placed. 2. Ventilator-dependent respiratory failure. 3. Quadriplegia. 4. Sacral ulcer. 5. Anemia. 6. Sinus tachycardia with preserved ejection fraction. 7. Depression. 8. Ileus totally resolved, colonoscopy no evidence of obstruction patient has a normal looking colon Plan Colostomy as per surgeon Continue present care pt. declined surgery. Discontinue Reglan Consultation Date/Type/Reason Admit Date/Time Apr 21, 2017 at 18:32 Initial Consult Date 04/22/17 Type of Consultation: id 24 HR Interval Summary Free Text/Dictation No nausea no vomiting Good bowel movements Constitutional: no complaints Exam/Review of Systems Vital Signs Vitals Vital Signs Date Time Temp Pulse Resp B/P Pulse Ox O2 Delivery O2 Flow Rate FiO2 05/02/17 17:10 94 20 97 35 05/02/17 12:16 98.5 113/62 04/30/17 18:03 Mechanical Ventilator Intake and Output 05/01/17 05/01/17 05/02/17 15:00 23:00 07:00 Intake Total 1360 ml 1424 ml 1020 ml Output Total 1800 ml 1800 ml 1000 ml Balance -440 ml -376 ml 20 ml Exam Constitutional: alert, oriented, well developed Psych: nl mood/affect, no complaints Head: atraumatic, normocephalic Eyes: EOMI, PERRL, nl conjunctiva, nl lids, nl sclera ENMT: nl external ears & nose, nl lips & teeth, nl nasal mucosa & septum Neck: non-tender, supple Respiratory: clear to auscultation, normal air movement Cardiovascular: nl pulses, regular rate and rhythm Gastrointestinal: nl liver, spleen, non-tender, soft Musculoskeletal: nl extremities to inspection, nl gait and stance Extremities: normal pulses Neurological: LEAD C 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 II-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 intact, nl mental status, nl speech, nl strength Skin: nl turgor, No rash or lesions Lymph: nl lymph nodes Results Result Diagram: 05/02/17 1105 05/02/17 1105 Results 24 hrs Laboratory Tests Test 05/02/17 05:34 05/02/17 11:05 Blood Urea Nitrogen 5 L 5 L Creatinine 0.32 L 0.32 L White Blood Count 11.0 H Red Blood Count 3.44 L Hemoglobin 8.4 L Hematocrit 28.0 L Mean Corpuscular Volume 81.4 L Mean Corpuscular Hemoglobin 24.4 L Mean Corpuscular Hemoglobin Concent 30.0 L Red Cell Distribution Width 17.1 H Platelet Count 520 H Mean Platelet Volume 9.5 Neutrophils % 65.2 Lymphocytes % 23.5 Monocytes % 4.7 Eosinophils % 5.7 Basophils % 0.4 Nucleated Red Blood Cells % 0.0 Neutrophils # 7.2 Lymphocytes # 2.6 Monocytes # 0.5 Eosinophils # 0.6 H Basophils # 0.0 Nucleated Red Blood Cells # 0.0 Sodium Level 141 Potassium Level 3.0 L Chloride Level 102 Carbon Dioxide Level 28 Anion Gap 14 Glucose Level 109 Calcium Level 8.4 Total Bilirubin 0.0 L Direct Bilirubin 0.00 Indirect Bilirubin 0.0 Aspartate Amino Transf (AST/SGOT) 10 L Alanine Aminotransferase (ALT/SGPT) 25 Alkaline Phosphatase 46 Total Protein 6.2 Albumin 3.0 L Globulin 3.20 Albumin/Globulin Ratio 0.93 Medications Medications Current Medications Ondansetron HCl (Zofran Inj) 4 mg Q6H PRN IV NAUSEA AND/OR VOMITING Last administered on 04/28/17 16:56; Admin Dose 4 MG; Start 04/21/17 at 20:00 Lorazepam (Ativan) 1 mg Q2H PRN IV ANXIETY Last administered on 05/02/17 17: 41; Admin Dose 1 MG; Start 04/21/17 at 20:00 Metoclopramide HCl (Reglan) 10 mg Q6 IV Last administered on 05/02/17 17:41; Admin Dose 10 MG; Start 04/22/17 at 18:00 Sodium Hypochlorite (Dakin'S (Dilute 1/40%)) 1 applic BID IRR Last administered on 05/02/17 08:37; Admin Dose 1 APPLIC; Start 04/23/17 at 14:30 Collagenase (Santyl) 1 applic DAILY TOP Last administered on 05/02/17 08:36; Admin Dose 1 APPLIC; Start 04/23/17 at 16:00 Diphenhydramine HCl (Benadryl) 25 mg Q6H PRN IV Itchiness Last administered on 05/02/17 13:16; Admin Dose 25 MG; Start 04/23/17 at 21:00 Vancomycin HCl 250 mg 250 mg Q6 PO Last administered on 05/02/17 17:41; Admin Dose 250 MG; Start 04/24/17 at 12:00 Metronidazole (Flagyl 500 Mg (Pmx)) 100 ml @ 100 mls/hr Q8 IVPB Last administered on 05/02/17 13:09; Admin Dose 100 MLS/HR; Start 04/24/17 at 14: 00 Sertraline HCl (Zoloft) 50 mg DAILY PEG Last administered on 05/02/17 08:37; Admin Dose 50 MG; Start 04/24/17 at 12:30 Zinc Sulfate (Zinc Sulfate) 220 mg DAILY GTB Last administered on 05/02/17 08 :36; Admin Dose 220 MG; Start 04/25/17 at 09:00 Ascorbic Acid (Vitamin C) 500 mg BID GTB Last administered on 05/02/17 08:36 ; Admin Dose 500 MG; Start 04/24/17 at 21:00 Multivitamins (Multivitamin) 30 ml DAILY GTB Last administered on 05/02/17 08 :36; Admin Dose 30 ML; Start 04/25/17 at 09:00 Famotidine 20 mg 20 mg BID GTB Last administered on 05/02/17 08:35; Admin Dose 20 MG; Start 04/24/17 at 21:00 Daptomycin/Sodium Chloride (Cubicin/NS) 100 ml @ 200 mls/hr Q24H IVPB Last administered on 05/02/17 17:59; Admin Dose 200 MLS/HR; Start 04/26/17 at 16: 00 Amikacin Sulfate (Amikacin Iv Per Pharmacy) AMIKACIN PER PHARMACY NOTE XX ; Start 04/26/17 at 14:00 Acetaminophen/ Hydrocodone Bitart 1 tab 1 tab Q4H PRN PO PAIN Last administered on 05/02/17 10:49; Admin Dose 1 TAB; Start 04/29/17 at 09:30 Amikacin Sulfate/ Sodium Chloride (Amikacin/NS) 254 ml @ 254 mls/hr Q24H IVPB Last administered on 05/01/17 20:04; Admin Dose 254 MLS/HR; Start 05/01/17 at 20:00 Hydrocortisone (Hydrocortisone 1% Cr) 1 applic BID PRN TOP ITCHING; Start at 17:00 Potassium Chloride (Klor-Con 20) 40 meq ONCE ONCE PO ; Start 05/02/17 at 20:00 ; Stop 05/02/17 at 20:01 JAMES GOODWIN MD May 02, 2017 19:45
[2017-05-02] MEDS ORDERED: POTASSIUM CHLORIDE (SR) 20 MEQ TAB PO ONE (20:00)
[2017-05-02] MEDS ORDERED: POTASSIUM CHLORIDE 20 MEQ POWDER FOR ORAL SOLN GTB ONE ×2 (21:00→21:08)
[2017-05-02] MEDS: AMIKACIN 1,000 MG in SOD CHLORIDE 0.9% 250 ML IVPB SCH (23:19)
[2017-05-03] VITALS (26 sets, daily range): BP systolic 105–138; BP diastolic 56–76; PULSE 100–120; RESP 18–21
[2017-05-03] MEDS: metroNIDAZOLE 500 MG/NS (PMX) 100 ML IVPB SCH ×4 (00:27→21:24)
[2017-05-03] MEDS: LORAZEPAM 2 MG INJ IV PRN ×6 (00:28→20:28)
[2017-05-03] MEDS: VANCOMYCIN HCL 250 MG/5ML POSYG PO SCH ×4 (00:44→17:02)
[2017-05-03] MEDS: HYDROCODONE/APAP (10/325) TAB PO PRN ×4 (05:06→21:24)
[2017-05-03 06:34] LABS: BASOPHIL # 0.1 10^3/ul (0.0-0.1); BASOPHILS % 0.4 % (0.0-2.0); EOSINOPHILS # 0.7 10^3/ul (0.0-0.5); HEMATOCRIT 31.3 % (42.0-52.0); HEMOGLOBIN 9.4 g/dl (14.0-18.0); LYMPHOCYTES % 21.4 % (15.0-51.0); MEAN CORPUSCULAR HEMOGLOBIN 24.3 pg (29.0-33.0); MEAN CORPUSCULAR VOLUME 80.9 fl (82.0-101.0); MEAN PLATELET VOLUME 9.8 fl (7.4-10.4); MONOCYTE # 0.7 10^3/ul (0.3-0.9); MONOCYTES % 4.9 % (0.0-11.0); NEUTROPHIL # 9.5 10^3/ul (1.6-7.5); NEUTROPHILS % 68.1 % (39.0-77.0); PLATELET COUNT 610 10^3/UL (140-415); RED BLOOD COUNT 3.87 10^6/ul (4.70-6.10); RED CELL DISTRIBUTION WIDTH 17.5 % (11.5-14.5); WHITE BLOOD COUNT 13.9 10^3/ul (4.8-10.8)
[2017-05-03] MEDS: DIPHENHYDRAMINE 50 MG INJ IV PRN ×3 (07:07→20:28)
[2017-05-03 07:48] LABS: CALCIUM 9.1 mg/dl (8.4-10.2); CREATININE 0.32 mg/dl (0.61-1.24); POTASSIUM 3.8 mmol/L (3.5-5.1)
[2017-05-03] MEDS: MULTIVITAMINS 30 ML CUP GTB SCH (09:05)
[2017-05-03] MEDS: FAMOTIDINE 20 MG TAB GTB SCH ×2 (09:05→20:24)
[2017-05-03] MEDS: SERTRALINE 50 MG TAB PEG SCH (09:06)
[2017-05-03] MEDS: ZINC SULFATE 220 MG CAP GTB SCH (09:06)
[2017-05-03] MEDS: COLLAGENASE 30 GM TUBE TOP SCH (09:06)
[2017-05-03] MEDS: SODIUM HYPOCHLORITE 1/40% 1L IRRIG IRR SCH ×2 (09:06→20:24)
[2017-05-03] MEDS: ASCORBIC ACID 500 MG TAB GTB SCH ×2 (09:06→20:24)
--- NOTE | 2017-05-03 14:55 | CONS ---
Date/Time of Note Date/Time of Note DATE: 05/03/17 TIME: 14:53 Consult Date/Type/Reason Admit Date/Time Apr 21, 2017 at 18:32 Initial Consult Date 04/22/17 Type of Consultation: Pulmonary Subjective Patient comfortable no new events. Of note he has declined diverting colostomy. Objective Vital Signs Date Time Temp Pulse Resp B/P Pulse Ox O2 Delivery O2 Flow Rate FiO2 05/03/17 13:24 108 20 99 35 05/03/17 12:06 98.2 122/64 04/30/17 18:03 Mechanical Ventilator Intake and Output 05/02/17 05/02/17 05/03/17 15:00 23:00 07:00 Intake Total 100 ml 1120 ml 1070 ml Output Total 800 ml 1600 ml Balance 100 ml 320 ml -530 ml Exam GENERAL: VITAL SIGNS: per chart NECK: Supple. No JVD or lymphadenopathy. CARDIAC EXAM: S1, S2. No added sounds or murmurs. CHEST: clear bilaterally, No added sounds, rales or wheezes ABDOMEN: Soft, nontender. No guarding or rebound. EXTREMITIES: No cyanosis, clubbing or edema. NEUROLOGIC: Quadriplegia. Chronically ill-appearing gentleman on mechanical ventilation comfortable at rest Results/Medications Result Diagram: 05/03/17 0538 05/03/17 0538 Results 24 hrs Laboratory Tests Test 05/03/17 05:38 White Blood Count 13.9 #H Red Blood Count 3.87 L Hemoglobin 9.4 L Hematocrit 31.3 L Mean Corpuscular Volume 80.9 L Mean Corpuscular Hemoglobin 24.3 L Mean Corpuscular Hemoglobin Concent 30.0 L Red Cell Distribution Width 17.5 H Platelet Count 610 H Mean Platelet Volume 9.8 Neutrophils % 68.1 Lymphocytes % 21.4 Monocytes % 4.9 Eosinophils % 5.0 Basophils % 0.4 Nucleated Red Blood Cells % 0.0 Neutrophils # 9.5 H Lymphocytes # 3.0 H Monocytes # 0.7 Eosinophils # 0.7 H Basophils # 0.1 Nucleated Red Blood Cells # 0.0 Sodium Level 143 Potassium Level 3.8 Chloride Level 104 Carbon Dioxide Level 31 Anion Gap 12 Blood Urea Nitrogen 5 L Creatinine 0.32 L Glucose Level 105 Calcium Level 9.1 Medications Current Medications Ondansetron HCl (Zofran Inj) 4 mg Q6H PRN IV NAUSEA AND/OR VOMITING Last administered on 04/28/17 16:56; Admin Dose 4 MG; Start 04/21/17 at 20:00 Lorazepam (Ativan) 1 mg Q2H PRN IV ANXIETY Last administered on 05/03/17 14: 21; Admin Dose 1 MG; Start 04/21/17 at 20:00 Sodium Hypochlorite (Dakin'S (Dilute 1/40%)) 1 applic BID IRR Last administered on 05/03/17 09:06; Admin Dose 1 APPLIC; Start 04/23/17 at 14:30 Collagenase (Santyl) 1 applic DAILY TOP Last administered on 05/03/17 09:06; Admin Dose 1 APPLIC; Start 04/23/17 at 16:00 Diphenhydramine HCl (Benadryl) 25 mg Q6H PRN IV Itchiness Last administered on 05/03/17 12:49; Admin Dose 25 MG; Start 04/23/17 at 21:00 Vancomycin HCl 250 mg 250 mg Q6 PO Last administered on 05/03/17 12:48; Admin Dose 250 MG; Start 04/24/17 at 12:00 Metronidazole (Flagyl 500 Mg (Pmx)) 100 ml @ 100 mls/hr Q8 IVPB Last administered on 05/03/17 14:20; Admin Dose 100 MLS/HR; Start 04/24/17 at 14: 00 Sertraline HCl (Zoloft) 50 mg DAILY PEG Last administered on 05/03/17 09:06; Admin Dose 50 MG; Start 04/24/17 at 12:30 Zinc Sulfate (Zinc Sulfate) 220 mg DAILY GTB Last administered on 05/03/17 09 :06; Admin Dose 220 MG; Start 04/25/17 at 09:00 Ascorbic Acid (Vitamin C) 500 mg BID GTB Last administered on 05/03/17 09:06 ; Admin Dose 500 MG; Start 04/24/17 at 21:00 Multivitamins (Multivitamin) 30 ml DAILY GTB Last administered on 05/03/17 09 :05; Admin Dose 30 ML; Start 04/25/17 at 09:00 Famotidine 20 mg 20 mg BID GTB Last administered on 05/03/17 09:05; Admin Dose 20 MG; Start 04/24/17 at 21:00 Daptomycin/Sodium Chloride (Cubicin/NS) 100 ml @ 200 mls/hr Q24H IVPB Last administered on 05/02/17 17:59; Admin Dose 200 MLS/HR; Start 04/26/17 at 16: 00 Amikacin Sulfate (Amikacin Iv Per Pharmacy) AMIKACIN PER PHARMACY NOTE XX ; Start 04/26/17 at 14:00 Acetaminophen/ Hydrocodone Bitart 1 tab 1 tab Q4H PRN PO PAIN Last administered on 05/03/17 12:49; Admin Dose 1 TAB; Start 04/29/17 at 09:30 Amikacin Sulfate/ Sodium Chloride (Amikacin/NS) 254 ml @ 254 mls/hr Q24H IVPB Last administered on 05/02/17 23:19; Admin Dose 254 MLS/HR; Start 05/01/17 at 20:00 Hydrocortisone (Hydrocortisone 1% Cr) 1 applic BID PRN TOP ITCHING; Start at 17:00 Assessment/Plan Chief Complaint/Hosp Course Imp: s/p svt Patient declined colostomy. chronic resp failure. decub stage IV. PLAN: 1. Continue mechanical ventilation. 2. Continue surgical recommendations., 3. Broad-spectrum antibiotics. 4. Wound care. 5. Deep venous thrombosis and gastrointestinal prophylaxis. Transfer to [place] Problems: JIMMIE BARTON MD, [facility] May 03, 2017 14:55
--- NOTE | 2017-05-03 15:29 | CONS ---
Date/Time of Note Date/Time of Note DATE: 05/03/17 TIME: 15:29 Assessment/Plan Assessment/Plan Additional Assessment/Plan IMPRESSION: 1. Dislodgement of G-tube which was successfully placed. 2. Ventilator-dependent respiratory failure. 3. Quadriplegia. 4. Sacral ulcer. 5. Anemia. 6. Sinus tachycardia with preserved ejection fraction. 7. Depression. 8. Ileus totally resolved, colonoscopy no evidence of obstruction patient has a normal looking colon Plan Colostomy as per surgeon Continue present care pt. declined surgery. Discontinue Reglan Discussed with the father and has agreed for the colostomy Consultation Date/Type/Reason Admit Date/Time Apr 21, 2017 at 18:32 Initial Consult Date 04/22/17 Type of Consultation: Pulmonary 24 HR Interval Summary Constitutional: improved, no complaints Exam/Review of Systems Vital Signs Vitals Vital Signs Date Time Temp Pulse Resp B/P Pulse Ox O2 Delivery O2 Flow Rate FiO2 05/03/17 15:09 110 20 99 35 05/03/17 12:06 98.2 122/64 04/30/17 18:03 Mechanical Ventilator Intake and Output 05/02/17 05/02/17 05/03/17 15:00 23:00 07:00 Intake Total 100 ml 1120 ml 1070 ml Output Total 800 ml 1600 ml Balance 100 ml 320 ml -530 ml Exam Constitutional: alert, oriented, well developed Psych: nl mood/affect, no complaints Head: atraumatic, normocephalic Eyes: EOMI, PERRL, nl conjunctiva, nl lids, nl sclera ENMT: nl external ears & nose, nl lips & teeth, nl nasal mucosa & septum Neck: non-tender, supple Respiratory: clear to auscultation, normal air movement Cardiovascular: nl pulses, regular rate and rhythm Gastrointestinal: nl liver, spleen, non-tender, soft Musculoskeletal: nl extremities to inspection, nl gait and stance Extremities: normal pulses Neurological: 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 II-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 intact, nl mental status, nl speech, nl strength Skin: nl turgor, No rash or lesions Lymph: nl lymph nodes Results Result Diagram: 05/03/17 0538 05/03/17 0538 Results 24 hrs Laboratory Tests Test 05/03/17 05:38 White Blood Count 13.9 #H Red Blood Count 3.87 L Hemoglobin 9.4 L Hematocrit 31.3 L Mean Corpuscular Volume 80.9 L Mean Corpuscular Hemoglobin 24.3 L Mean Corpuscular Hemoglobin Concent 30.0 L Red Cell Distribution Width 17.5 H Platelet Count 610 H Mean Platelet Volume 9.8 Neutrophils % 68.1 Lymphocytes % 21.4 Monocytes % 4.9 Eosinophils % 5.0 Basophils % 0.4 Nucleated Red Blood Cells % 0.0 Neutrophils # 9.5 H Lymphocytes # 3.0 H Monocytes # 0.7 Eosinophils # 0.7 H Basophils # 0.1 Nucleated Red Blood Cells # 0.0 Sodium Level 143 Potassium Level 3.8 Chloride Level 104 Carbon Dioxide Level 31 Anion Gap 12 Blood Urea Nitrogen 5 L Creatinine 0.32 L Glucose Level 105 Calcium Level 9.1 Medications Medications Current Medications Ondansetron HCl (Zofran Inj) 4 mg Q6H PRN IV NAUSEA AND/OR VOMITING Last administered on 04/28/17 16:56; Admin Dose 4 MG; Start 04/21/17 at 20:00 Lorazepam (Ativan) 1 mg Q2H PRN IV ANXIETY Last administered on 05/03/17 14: 21; Admin Dose 1 MG; Start 04/21/17 at 20:00 Sodium Hypochlorite (Dakin'S (Dilute 1/40%)) 1 applic BID IRR Last administered on 05/03/17 09:06; Admin Dose 1 APPLIC; Start 04/23/17 at 14:30 Collagenase (Santyl) 1 applic DAILY TOP Last administered on 05/03/17 09:06; Admin Dose 1 APPLIC; Start 04/23/17 at 16:00 Diphenhydramine HCl (Benadryl) 25 mg Q6H PRN IV Itchiness Last administered on 05/03/17 12:49; Admin Dose 25 MG; Start 04/23/17 at 21:00 Vancomycin HCl 250 mg 250 mg Q6 PO Last administered on 05/03/17 12:48; Admin Dose 250 MG; Start 04/24/17 at 12:00 Metronidazole (Flagyl 500 Mg (Pmx)) 100 ml @ 100 mls/hr Q8 IVPB Last administered on 05/03/17 14:20; Admin Dose 100 MLS/HR; Start 04/24/17 at 14: 00 Sertraline HCl (Zoloft) 50 mg DAILY PEG Last administered on 05/03/17 09:06; Admin Dose 50 MG; Start 04/24/17 at 12:30 Zinc Sulfate (Zinc Sulfate) 220 mg DAILY GTB Last administered on 05/03/17 09 :06; Admin Dose 220 MG; Start 04/25/17 at 09:00 Ascorbic Acid (Vitamin C) 500 mg BID GTB Last administered on 05/03/17 09:06 ; Admin Dose 500 MG; Start 04/24/17 at 21:00 Multivitamins (Multivitamin) 30 ml DAILY GTB Last administered on 05/03/17 09 :05; Admin Dose 30 ML; Start 04/25/17 at 09:00 Famotidine 20 mg 20 mg BID GTB Last administered on 05/03/17 09:05; Admin Dose 20 MG; Start 04/24/17 at 21:00 Daptomycin/Sodium Chloride (Cubicin/NS) 100 ml @ 200 mls/hr Q24H IVPB Last administered on 05/02/17 17:59; Admin Dose 200 MLS/HR; Start 04/26/17 at 16: 00 Amikacin Sulfate (Amikacin Iv Per Pharmacy) AMIKACIN PER PHARMACY NOTE XX ; Start 04/26/17 at 14:00 Acetaminophen/ Hydrocodone Bitart 1 tab 1 tab Q4H PRN PO PAIN Last administered on 05/03/17 12:49; Admin Dose 1 TAB; Start 04/29/17 at 09:30 Amikacin Sulfate/ Sodium Chloride (Amikacin/NS) 254 ml @ 254 mls/hr Q24H IVPB Last administered on 05/02/17 23:19; Admin Dose 254 MLS/HR; Start 05/01/17 at 20:00 Hydrocortisone (Hydrocortisone 1% Cr) 1 applic BID PRN TOP ITCHING; Start at 17:00 JAMES GOODWIN MD May 03, 2017 15:29
--- NOTE | 2017-05-03 16:50 | DS ---
Date/Time of Note Date/Time of Note DATE: 05/03/17 TIME: 16:45 Discharge Summary Admission/Discharge Info Admit Date/Time Apr 21, 2017 at 18:32 Discharge Date/Time May 03, 2017 Discharge Diagnosis 1.SBO: - Resolved - Colonscopy normal 2. PEG tube dislodgement -PEG tube was changed by GI 3. 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 Microcytic anemia secondary to anemia of chronic disease -Rejects transfusions given he is jehovas witness 5. Chronic hypoxic respiratory failure: -Continue vent support via trach -Pulmonology following -DC to [facility] 6. Depression - Started on Zoloft 7. Anxiety - Lorazepam PRN Patient Condition: Fair Hospital Course Patient is a 26-year-old obese male with trach/vent dependent respiratory failure who had been at [facility] respiratory facility was transferred to [facility] for small bowel obstruction. Patient was initially admitted to ICU for sepsis secondary to decubitus ulcers. Patient was seen by ID was given broad-spectrum antibiotic's. CT abdomen pelvis was done which showed findings concerning for small bowel obstruction possibly secondary to distal colonic pathology. It also showed right paracentral decubitus ulcer with increased attenuation of the subcutaneous fat adjacent to the coccygeal tip with osteomyelitis of the coccyx not being able to be excluded. Obstruction did resolve, PEG tube was changed by GI. Patient was seen by surgery and was to have a diverting colostomy to allow for proper healing of the decubitus ulcers but patient was notably anemic and required blood transfusion which patient refused secondary to being a [employer] hence colostomy was canceled for now. Patient was started on Zoloft for depression while in house. Patient is felt to be stable for DC back to [facility], on day of discharge patient vitals labs and physical exam are stable he had no acute complaints and questions are answered. Home Meds No Active Prescriptions or Reported Meds Follow-up Plan Follow-up with physicians at [facility] Time spent on discharge: > 30 minutes SVEN WALLACE May 03, 2017 16:50
[2017-05-03] MEDS: SOD CHLORIDE 0.9% IVPB SCH (16:56)
[2017-05-03] MEDS: DAPTOMYCIN IVPB SCH (16:56)
[2017-05-03] MEDS: AMIKACIN 1,000 MG in SOD CHLORIDE 0.9% 250 ML IVPB SCH (20:25)
[2017-05-04] VITALS (23 sets, daily range): BP systolic 100–134; BP diastolic 56–70; PULSE 93–110; RESP 19–22
[2017-05-04] MEDS: VANCOMYCIN HCL 250 MG/5ML POSYG PO SCH ×5 (01:31→23:37)
[2017-05-04] MEDS: LORAZEPAM 2 MG INJ IV PRN ×5 (01:32→18:22)
[2017-05-04] MEDS: HYDROCODONE/APAP (10/325) TAB PO PRN ×4 (01:32→20:19)
[2017-05-04] MEDS: DIPHENHYDRAMINE 50 MG INJ IV PRN (04:40)
[2017-05-04] MEDS: metroNIDAZOLE 500 MG/NS (PMX) 100 ML IVPB SCH ×3 (05:53→22:22)
[2017-05-04] MEDS: ZINC SULFATE 220 MG CAP GTB SCH (08:52)
[2017-05-04] MEDS: FAMOTIDINE 20 MG TAB GTB SCH ×2 (08:52→20:19)
[2017-05-04] MEDS: ASCORBIC ACID 500 MG TAB GTB SCH ×2 (08:52→20:19)
[2017-05-04] MEDS: SERTRALINE 50 MG TAB PEG SCH (08:52)
[2017-05-04] MEDS: MULTIVITAMINS 30 ML CUP GTB SCH (08:52)
[2017-05-04] MEDS: SODIUM HYPOCHLORITE 1/40% 1L IRRIG IRR SCH ×2 (09:08→22:22)
[2017-05-04] MEDS: COLLAGENASE 30 GM TUBE TOP SCH (09:09)
--- NOTE | 2017-05-04 12:09 | CONS ---
Date/Time of Note Date/Time of Note DATE: 05/04/17 TIME: 12:06 Assessment/Plan Assessment/Plan Additional Assessment/Plan Ventilator setting; AC of 20, tidal volume 500, PEEP of 5, 45% FiO2. Assessment and recommendations; 1. Patient admitted with sacral decubitus ulcer with significant clinical improvement. 2. Quadriplegia with chronic respiratory failure. 3. Patient has declined diverting colostomy. Continue current supportive care. Patient is at very high risk of recurrent wound infection and sepsis due to high risk of stool contamination of sacral decubitus infection site. Consultation Date/Type/Reason Admit Date/Time Apr 21, 2017 at 18:32 Initial Consult Date 04/22/17 Type of Consultation: Pulmonary 24 HR Interval Summary Free Text/Dictation Patient's condition is stable. Remains awake and alert. Has remained hemodynamically stable. General exam; young male, morbidly obese, on ventilator via tracheostomy. Currently in no distress. Exam/Review of Systems Vital Signs Vitals Vital Signs Date Time Temp Pulse Resp B/P Pulse Ox O2 Delivery O2 Flow Rate FiO2 05/04/17 11:45 98.2 109 20 118/70 99 05/04/17 09:00 35 04/30/17 18:03 Mechanical Ventilator Intake and Output 05/03/17 05/03/17 05/04/17 14:59 22:59 06:59 Intake Total 1570 ml 960 ml Output Total 1700 ml 1100 ml Balance -130 ml -140 ml Exam HEENT exam; supple neck, no JVD. No lymphadenopathy. Midline trachea. No thyromegaly. Tracheostomy in place. Insertion site is clean. Patient has fair dentition. Chest exam; clear to auscultation. S1-S2 audible, no murmurs. Regular rhythm. Abdomen exam; soft, G-tube in place. Protuberant. No organomegaly. Bowel sounds audible. Back examination; dressing applied over sacrum. Extremity exam; no peripheral edema. 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 Results Result Diagram: 05/03/17 0538 05/03/17 0538 Results 24 hrs Laboratory Tests Test 05/04/17 06:56 Lab Scanned Report REFERENCE LAB Medications Medications Current Medications Ondansetron HCl (Zofran Inj) 4 mg Q6H PRN IV NAUSEA AND/OR VOMITING Last administered on 04/28/17t 16:56; Admin Dose 4 MG; Start 04/21/17 at 20:00 Lorazepam (Ativan) 1 mg Q2H PRN IV ANXIETY Last administered on 05/04/17 09: 08; Admin Dose 1 MG; Start 04/21/17 at 20:00 Sodium Hypochlorite (Dakin'S (Dilute 1/40%)) 1 applic BID IRR Last administered on 05/04/17 09:08; Admin Dose 1 APPLIC; Start 04/23/17 at 14:30 Collagenase (Santyl) 1 applic DAILY TOP Last administered on 05/04/17 09:09; Admin Dose 1 APPLIC; Start 04/23/17 at 16:00 Diphenhydramine HCl (Benadryl) 25 mg Q6H PRN IV Itchiness Last administered on 05/04/17 04:40; Admin Dose 25 MG; Start 04/23/17 at 21:00 Vancomycin HCl 250 mg 250 mg Q6 PO Last administered on 05/04/17 05:55; Admin Dose 250 MG; Start 04/24/17 at 12:00 Metronidazole (Flagyl 500 Mg (Pmx)) 100 ml @ 100 mls/hr Q8 IVPB Last administered on 05/04/17 05:53; Admin Dose 100 MLS/HR; Start 04/24/17 at 14: 00 Sertraline HCl (Zoloft) 50 mg DAILY PEG Last administered on 05/04/17 08:52; Admin Dose 50 MG; Start 04/24/17 at 12:30 Zinc Sulfate (Zinc Sulfate) 220 mg DAILY GTB Last administered on 05/04/17 08 :52; Admin Dose 220 MG; Start 04/25/17 at 09:00 Ascorbic Acid (Vitamin C) 500 mg BID GTB Last administered on 05/04/17 08:52 ; Admin Dose 500 MG; Start 04/24/17 at 21:00 Multivitamins (Multivitamin) 30 ml DAILY GTB Last administered on 05/04/17 08 :52; Admin Dose 30 ML; Start 04/25/17 at 09:00 Famotidine 20 mg 20 mg BID GTB Last administered on 05/04/17 08:52; Admin Dose 20 MG; Start 04/24/17 at 21:00 Daptomycin/Sodium Chloride (Cubicin/NS) 100 ml @ 200 mls/hr Q24H IVPB Last administered on 05/03/17 16:56; Admin Dose 200 MLS/HR; Start 04/26/17 at 16: 00 Amikacin Sulfate (Amikacin Iv Per Pharmacy) AMIKACIN PER PHARMACY NOTE XX ; Start 04/26/17 at 14:00 Acetaminophen/ Hydrocodone Bitart 1 tab 1 tab Q4H PRN PO PAIN Last administered on 05/04/17 05:53; Admin Dose 1 TAB; Start 04/29/17 at 09:30 Amikacin Sulfate/ Sodium Chloride (Amikacin/NS) 254 ml @ 254 mls/hr Q24H IVPB Last administered on 05/03/17 20:25; Admin Dose 254 MLS/HR; Start 05/01/17 at 20:00 Hydrocortisone (Hydrocortisone 1% Cr) 1 applic BID PRN TOP ITCHING; Start at 17:00 DANIELLE JOINER May 04, 2017 12:09
--- NOTE | 2017-05-04 12:39 | PN ---
Date/Time of Note Date/Time of Note DATE: 05/04/17 TIME: 12:34 Assessment/Plan Lines/Catheters IV Catheter Type (from Nrs): Mid Line Schumacher in Place (from Nrs): Yes Assessment/Plan Chief Complaint/Hosp Course 1. Constipation causing dilated bowel resolved. Colonoscopy negative. Patient was scheduled for surgery 04/30 however after he talked to anesthesia and OR crew, apparently he changed his mind and canceled surgery bc of risks associated with surgery. continues to refuse surgery -defer back to primary team for care 2. Gtube dislodgement replaced by gi -nutrition 3. Leukocytosis: likely 2 #1+/-2 +/- 6 -as above 4. Microcytic, hypochromic anemia: -monitor -transfuse as needed -further workup per medical team 5. VDRF -pulm toilet -respiratory treatments 6. Sacral wound: + cultures -debridement prn -local care bid -frequent turning and off-loading -low air loss mattress -vitamin c -short term zinc -optimize nutrition 7. Sinus tachycardia: s/p amio drip -per cards Thank you. Patient seen and examined in collaboration with Dr. Kevin Rushing. Problems: Subjective 24 Hr Interval Summary Feels well. No c/o abdominal pain. Continues to refuse surgery. No fevers, chills, sob, congested cough, cp, palpitations, blanco, dizziness, n/v/d/dysuria. Exam/Review of Systems Vital Signs Vitals Vital Signs Date Time Temp Pulse Resp B/P Pulse Ox O2 Delivery O2 Flow Rate FiO2 05/04/17 11:45 98.2 109 20 118/70 99 05/04/17 09:00 35 04/30/17 18:03 Mechanical Ventilator Intake and Output 05/03/17 05/03/17 05/04/17 15:00 23:00 07:00 Intake Total 1570 ml 1060 ml Output Total 1700 ml 1100 ml Balance -130 ml -40 ml Exam Free Text/Dictation Constitutional: alert, oriented Psych: no anxiety Head: atraumatic, normocephalic Eyes: nl lids, nl sclera ENMT: mucosa pink and moist, nl nasal mucosa & septum Neck: non-tender, other (trach), supple Respiratory: No labored breathing Cardiovascular: rrr, sr/st Gastrointestinal: distended (mod ), soft, No tender Genitourinary - Male: nl penis, nl scrotum Musculoskeletal: nl extremities to inspection, No muscle tone Extremities: normal pulses, No edema Neurological: other (quadriplegia), No nl strength Skin: wounds - nurses notes and pics: sacral wound packed, min odor, erythema periwound improved Results Result Diagram: 05/03/17 0538 05/03/17 0538 REGINO GLOVER NP May 04, 2017 12:39
--- NOTE | 2017-05-04 14:00 | CONS ---
Date/Time of Note Date/Time of Note DATE: 05/04/17 TIME: 13:59 Assessment/Plan Assessment/Plan Additional Assessment/Plan Sinus tachycardia Preserved ejection fraction GI obstruction PEG displacement status post readjustment Status post trauma to spine with quadriplegia -Patient with intermittent sinus tachycardia, blood pressure trend overall remains stable. No need for AV braxton blocking agents the current time. Consultation Date/Type/Reason Admit Date/Time Apr 21, 2017 at 18:32 Initial Consult Date 04/22/17 Type of Consultation: cv 24 HR Interval Summary Free Text/Dictation Denies palpitations, shortness of breath or dizziness Exam/Review of Systems Vital Signs Vitals Vital Signs Date Time Temp Pulse Resp B/P Pulse Ox O2 Delivery O2 Flow Rate FiO2 05/04/17 11:45 98.2 109 20 118/70 99 05/04/17 09:00 35 04/30/17 18:03 Mechanical Ventilator Intake and Output 05/03/17 05/03/17 05/04/17 14:59 22:59 06:59 Intake Total 1570 ml 960 ml Output Total 1700 ml 1100 ml Balance -130 ml -140 ml Exam No apparent distress Constitutional: alert, obese, oriented Head: normocephalic Neck: other (Tracheostomy) Respiratory: other (Coarse breath sounds bilaterally, no wheezing) Cardiovascular: other (S1-S2 heard), regular rate and rhythm Gastrointestinal: bowel sounds, non-tender, soft Extremities: edema Results Result Diagram: 05/03/17 0538 05/03/17 0538 Results 24 hrs Laboratory Tests Test 05/04/17 06:56 05/04/17 12:21 Lab Scanned Report REFERENCE LAB Creatine Kinase < 20 L Medications Medications Current Medications Ondansetron HCl (Zofran Inj) 4 mg Q6H PRN IV NAUSEA AND/OR VOMITING Last administered on 04/28/17 16:56; Admin Dose 4 MG; Start 04/21/17 at 20:00 Lorazepam (Ativan) 1 mg Q2H PRN IV ANXIETY Last administered on 05/04/17 09: 08; Admin Dose 1 MG; Start 04/21/17 at 20:00 Sodium Hypochlorite (Dakin'S (Dilute 1/40%)) 1 applic BID IRR Last administered on 05/04/17 09:08; Admin Dose 1 APPLIC; Start 04/23/17 at 14:30 Collagenase (Santyl) 1 applic DAILY TOP Last administered on 05/04/17 09:09; Admin Dose 1 APPLIC; Start 04/23/17 at 16:00 Diphenhydramine HCl (Benadryl) 25 mg Q6H PRN IV Itchiness Last administered on 05/04/17 04:40; Admin Dose 25 MG; Start 04/23/17 at 21:00 Vancomycin HCl 250 mg 250 mg Q6 PO Last administered on 05/04/17 12:33; Admin Dose 250 MG; Start 04/24/17 at 12:00 Metronidazole (Flagyl 500 Mg (Pmx)) 100 ml @ 100 mls/hr Q8 IVPB Last administered on 05/04/17 05:53; Admin Dose 100 MLS/HR; Start 04/24/17 at 14: 00 Sertraline HCl (Zoloft) 50 mg DAILY PEG Last administered on 05/04/17 08:52; Admin Dose 50 MG; Start 04/24/17 at 12:30 Zinc Sulfate (Zinc Sulfate) 220 mg DAILY GTB Last administered on 05/04/17 08 :52; Admin Dose 220 MG; Start 04/25/17 at 09:00 Ascorbic Acid (Vitamin C) 500 mg BID GTB Last administered on 05/04/17 08:52 ; Admin Dose 500 MG; Start 04/24/17 at 21:00 Multivitamins (Multivitamin) 30 ml DAILY GTB Last administered on 05/04/17 08 :52; Admin Dose 30 ML; Start 04/25/17 at 09:00 Famotidine 20 mg 20 mg BID GTB Last administered on 05/04/17 08:52; Admin Dose 20 MG; Start 04/24/17 at 21:00 Daptomycin/Sodium Chloride (Cubicin/NS) 100 ml @ 200 mls/hr Q24H IVPB Last administered on 05/03/17 16:56; Admin Dose 200 MLS/HR; Start 04/26/17 at 16: 00 Amikacin Sulfate (Amikacin Iv Per Pharmacy) AMIKACIN PER PHARMACY NOTE XX ; Start 04/26/17 at 14:00 Acetaminophen/ Hydrocodone Bitart 1 tab 1 tab Q4H PRN PO PAIN Last administered on 05/04/17 05:53; Admin Dose 1 TAB; Start 04/29/17 at 09:30 Amikacin Sulfate/ Sodium Chloride (Amikacin/NS) 254 ml @ 254 mls/hr Q24H IVPB Last administered on 05/03/17t 20:25; Admin Dose 254 MLS/HR; Start 05/01/17 at 20:00 Hydrocortisone (Hydrocortisone 1% Cr) 1 applic BID PRN TOP ITCHING; Start at 17:00 David Aguilar DO May 04, 2017 14:00
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
[2017-05-04] MEDS: DAPTOMYCIN IVPB SCH (17:01)
[2017-05-04] MEDS: SOD CHLORIDE 0.9% IVPB SCH (17:01)
--- NOTE | 2017-05-04 18:04 | PN ---
Date/Time of Note Date/Time of Note DATE: 05/04/17 TIME: 18:01 Assessment/Plan VTE Prophylaxis VTE Prophylaxis Intervention: LMWH Assessment/Plan Chief Complaint/Hosp Course Discharge held as there are no beds in [place] available at this time 1.SBO: - Resolved - Colonscopy normal 2. PEG tube dislodgement -PEG tube was changed by GI 3. Sepsis secondary to stage IV sacral decubitus ulcer: -Continue IV antibiotics per ID -Wound care - Colostomy can be considered at later date, cancelled given anemia with patient refusal of packed blood cells secondary to being a [employer] 4. Microcytic anemia secondary to anemia of chronic disease -Rejects transfusions given he is jehovas witness 5. Chronic hypoxic respiratory failure: -Continue vent support via trach -Pulmonology following -DC to [facility] 6. Depression - Started on Zoloft 7. Anxiety - Lorazepam PRN Prophylaxis: Lovenox Problems: Subjective 24 Hr Interval Summary Constitutional: no complaints Exam/Review of Systems Vital Signs Vitals Vital Signs Date Time Temp Pulse Resp B/P Pulse Ox O2 Delivery O2 Flow Rate FiO2 05/04/17 16:05 93 05/04/17 15:34 98.3 20 109/61 99 05/04/17 09:00 35 04/30/17 18:03 Mechanical Ventilator Intake and Output 05/03/17 05/03/17 05/04/17 15:00 23:00 07:00 Intake Total 1570 ml 1060 ml Output Total 1700 ml 1100 ml Balance -130 ml -40 ml Exam Constitutional: alert Respiratory: clear to auscultation Cardiovascular: regular rate and rhythm Gastrointestinal: soft, No distended Musculoskeletal: nl extremities to inspection Results Result Diagram: 05/03/17 0538 05/03/17 0538 Results 24 hrs Laboratory Tests Test 05/04/17 06:56 05/04/17 12:21 Lab Scanned Report REFERENCE LAB Creatine Kinase < 20 L Medications Medications Current Medications Ondansetron HCl (Zofran Inj) 4 mg Q6H PRN IV NAUSEA AND/OR VOMITING Last administered on 04/28/17 16:56; Admin Dose 4 MG; Start 04/21/17 at 20:00 Lorazepam (Ativan) 1 mg Q2H PRN IV ANXIETY Last administered on 05/04/17 14: 17; Admin Dose 1 MG; Start 04/21/17 at 20:00 Sodium Hypochlorite (Dakin'S (Dilute 1/40%)) 1 applic BID IRR Last administered on 05/04/17 09:08; Admin Dose 1 APPLIC; Start 04/23/17 at 14:30 Collagenase (Santyl) 1 applic DAILY TOP Last administered on 05/04/17 09:09; Admin Dose 1 APPLIC; Start 04/23/17 at 16:00 Diphenhydramine HCl (Benadryl) 25 mg Q6H PRN IV Itchiness Last administered on 05/04/17 04:40; Admin Dose 25 MG; Start 04/23/17 at 21:00 Vancomycin HCl 250 mg 250 mg Q6 PO Last administered on 05/04/17 12:33; Admin Dose 250 MG; Start 04/24/17 at 12:00 Metronidazole (Flagyl 500 Mg (Pmx)) 100 ml @ 100 mls/hr Q8 IVPB Last administered on 05/04/17 14:17; Admin Dose 100 MLS/HR; Start 04/24/17 at 14: 00 Sertraline HCl (Zoloft) 50 mg DAILY PEG Last administered on 05/04/17 08:52; Admin Dose 50 MG; Start 04/24/17 at 12:30 Zinc Sulfate (Zinc Sulfate) 220 mg DAILY GTB Last administered on 05/04/17 08 :52; Admin Dose 220 MG; Start 04/25/17 at 09:00 Ascorbic Acid (Vitamin C) 500 mg BID GTB Last administered on 05/04/17 08:52 ; Admin Dose 500 MG; Start 04/24/17 at 21:00 Multivitamins (Multivitamin) 30 ml DAILY GTB Last administered on 05/04/17 08 :52; Admin Dose 30 ML; Start 04/25/17 at 09:00 Famotidine 20 mg 20 mg BID GTB Last administered on 05/04/17 08:52; Admin Dose 20 MG; Start 04/24/17 at 21:00 Daptomycin/Sodium Chloride (Cubicin/NS) 100 ml @ 200 mls/hr Q24H IVPB Last administered on 05/04/17 17:01; Admin Dose 200 MLS/HR; Start 04/26/17 at 16: 00 Amikacin Sulfate (Amikacin Iv Per Pharmacy) AMIKACIN PER PHARMACY NOTE XX ; Start 04/26/17 at 14:00 Acetaminophen/ Hydrocodone Bitart 1 tab 1 tab Q4H PRN PO PAIN Last administered on 05/04/17 14:42; Admin Dose 1 TAB; Start 04/29/17 at 09:30 Amikacin Sulfate/ Sodium Chloride (Amikacin/NS) 254 ml @ 254 mls/hr Q24H IVPB Last administered on 05/03/17 20:25; Admin Dose 254 MLS/HR; Start 05/01/17 at 20:00 Hydrocortisone (Hydrocortisone 1% Cr) 1 applic BID PRN TOP ITCHING; Start at 17:00 SVEN WALLACE May 04, 2017 18:04
[2017-05-04] MEDS: AMIKACIN 1,000 MG in SOD CHLORIDE 0.9% 250 ML IVPB SCH (20:19)
[2017-05-05] VITALS (19 sets, daily range): BP systolic 105–131; BP diastolic 58–73; PULSE 101–120; RESP 10–24
[2017-05-05] MEDS: LORAZEPAM 2 MG INJ IV PRN ×3 (00:12→17:27)
[2017-05-05] MEDS: COLLAGENASE 30 GM TUBE TOP SCH ×2 (00:18→09:55)
[2017-05-05] MEDS: IPRATROPIUM (HFA) 12.9 GM INHALER INH PRN ×2 (00:19→07:37)
[2017-05-05] MEDS: ALBUTEROL HFA 8 GM INHALER INH PRN ×2 (00:19→07:38)
[2017-05-05] MEDS: ONDANSETRON 4 MG INJ IV PRN (00:24)
[2017-05-05] MEDS: metroNIDAZOLE 500 MG/NS (PMX) 100 ML IVPB SCH ×2 (05:21→14:14)
[2017-05-05] MEDS: VANCOMYCIN HCL 250 MG/5ML POSYG PO SCH ×3 (05:21→18:06)
[2017-05-05] MEDS: DIPHENHYDRAMINE 50 MG INJ IV PRN (05:22)
[2017-05-05] MEDS: HYDROCODONE/APAP (10/325) TAB PO PRN ×2 (05:22→14:14)
[2017-05-05] MEDS ORDERED: ENOXAPARIN 40 MG/0.4 ML SYG SC SCH (09:00)
[2017-05-05] MEDS: MULTIVITAMINS 30 ML CUP GTB SCH (09:52)
[2017-05-05] MEDS: SERTRALINE 50 MG TAB PEG SCH (09:52)
[2017-05-05] MEDS: FAMOTIDINE 20 MG TAB GTB SCH (09:53)
[2017-05-05] MEDS: ASCORBIC ACID 500 MG TAB GTB SCH (09:53)
[2017-05-05] MEDS: ZINC SULFATE 220 MG CAP GTB SCH (09:53)
[2017-05-05] MEDS: SODIUM HYPOCHLORITE 1/40% 1L IRRIG IRR SCH (09:54)
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
--- NOTE | 2017-05-05 13:13 | PN ---
Date/Time of Note Date/Time of Note DATE: 05/05/17 TIME: 13:11 Assessment/Plan Lines/Catheters IV Catheter Type (from Nrs): Mid Line Schumacher in Place (from Nrs): Yes Assessment/Plan Chief Complaint/Hosp Course 1. Constipation causing dilated bowel resolved. Colonoscopy negative. Patient was scheduled for surgery 04/30 however after he talked to anesthesia and OR crew, apparently he changed his mind and canceled surgery bc of risks associated with surgery. continues to refuse surgery; pending placement -defer back to primary team for care 2. Gtube dislodgement replaced by gi -nutrition 3. Leukocytosis: likely 07/16 #1+/-2 +/- 6 -as above 4. Microcytic, hypochromic anemia: -monitor -transfuse as needed -further workup per medical team 5. VDRF -pulm toilet -respiratory treatments 6. Sacral wound: + cultures -debridement prn -local care bid -frequent turning and off-loading -low air loss mattress -vitamin c -short term zinc -optimize nutrition 7. Sinus tachycardia: s/p amio drip -per cards Thank you. Patient seen and examined in collaboration with Dr. Kevin Rushing. Problems: Subjective 24 Hr Interval Summary Feels well. Pending dc. No fevers, chills, sob, congested cough, cp, palpitations, blanco, dizziness, n/v/d/dysuria. +bowel function Exam/Review of Systems Vital Signs Vitals Vital Signs Date Time Temp Pulse Resp B/P Pulse Ox O2 Delivery O2 Flow Rate FiO2 05/05/17 12:18 98.7 110 10 131/73 99 05/05/17 11:44 35 Intake and Output 05/04/17 05/04/17 05/05/17 14:59 22:59 06:59 Intake Total 100 ml 1144 ml 1150 ml Output Total 2000 ml 1225 ml Balance 100 ml -856 ml -75 ml Exam Free Text/Dictation Constitutional: alert, oriented Psych: no anxiety Head: atraumatic, normocephalic Eyes: nl lids, nl sclera ENMT: mucosa pink and moist, nl nasal mucosa & septum Neck: non-tender, other (trach), supple Respiratory: No labored breathing Cardiovascular: rrr, sr/st Gastrointestinal: distended (mod ), soft, No tender Genitourinary - Male: nl penis, nl scrotum Musculoskeletal: nl extremities to inspection, No muscle tone Extremities: normal pulses, No edema Neurological: other (quadriplegia), No nl strength Skin: wounds - nurses notes and pics: sacral wound packed, no odor Results Result Diagram: 05/03/17 0538 05/03/17 0538 REGINO GLOVER NP May 05, 2017 13:13
--- NOTE | 2017-05-05 13:53 | CONS ---
Date/Time of Note Date/Time of Note DATE: 05/05/17 TIME: 13:52 Consult Date/Type/Reason Admit Date/Time Apr 21, 2017 at 18:32 Initial Consult Date 04/22/17 Type of Consultation: Pulmonary Subjective Patient remains stable. No new events. Objective Vital Signs Date Time Temp Pulse Resp B/P Pulse Ox O2 Delivery O2 Flow Rate FiO2 05/05/17 13:10 102 20 98 35 05/05/17 12:18 98.7 131/73 Intake and Output 05/04/17 05/04/17 05/05/17 15:00 23:00 07:00 Intake Total 1144 ml 1150 ml Output Total 2000 ml 1225 ml Balance -856 ml -75 ml Exam GENERAL: VITAL SIGNS: per chart NECK: Supple. No JVD or lymphadenopathy. CARDIAC EXAM: S1, S2. No added sounds or murmurs. CHEST: clear bilaterally, No added sounds, rales or wheezes ABDOMEN: Soft, nontender. No guarding or rebound. EXTREMITIES: No cyanosis, clubbing or edema. NEUROLOGIC: Quadriplegia. Chronically ill-appearing gentleman on mechanical ventilation comfortable at rest Results/Medications Result Diagram: 05/03/1753705/03/17537 Medications Current Medications Ondansetron HCl (Zofran Inj) 4 mg Q6H PRN IV NAUSEA AND/OR VOMITING Last administered on 05/05/17 00:24; Admin Dose 4 MG; Start 04/21/17 at 20:00 Lorazepam (Ativan) 1 mg Q2H PRN IV ANXIETY Last administered on 05/05/17 09: 55; Admin Dose 1 MG; Start 04/21/17 at 20:00 Sodium Hypochlorite (Dakin'S (Dilute 1/40%)) 1 applic BID IRR Last administered on 05/05/17 09:54; Admin Dose 1 APPLIC; Start 04/23/17 at 14:30 Collagenase (Santyl) 1 applic DAILY TOP Last administered on 05/05/17 09:55; Admin Dose 1 APPLIC; Start 04/23/17 at 16:00 Diphenhydramine HCl (Benadryl) 25 mg Q6H PRN IV Itchiness Last administered on 05/05/17 05:22; Admin Dose 25 MG; Start 04/23/17 at 21:00 Vancomycin HCl 250 mg 250 mg Q6 PO Last administered on 05/05/17 12:22; Admin Dose 250 MG; Start 04/24/17 at 12:00 Metronidazole (Flagyl 500 Mg (Pmx)) 100 ml @ 100 mls/hr Q8 IVPB Last administered on 05/05/17 05:21; Admin Dose 100 MLS/HR; Start 04/24/17 at 14: 00 Sertraline HCl (Zoloft) 50 mg DAILY PEG Last administered on 05/05/17 09:52; Admin Dose 50 MG; Start 04/24/17 at 12:30 Zinc Sulfate (Zinc Sulfate) 220 mg DAILY GTB Last administered on 05/05/17 09 :53; Admin Dose 220 MG; Start 04/25/17 at 09:00 Ascorbic Acid (Vitamin C) 500 mg BID GTB Last administered on 05/05/17 09:53 ; Admin Dose 500 MG; Start 04/24/17 at 21:00 Multivitamins (Multivitamin) 30 ml DAILY GTB Last administered on 05/05/17 09 :52; Admin Dose 30 ML; Start 04/25/17 at 09:00 Famotidine 20 mg 20 mg BID GTB Last administered on 05/05/17 09:53; Admin Dose 20 MG; Start 04/24/17 at 21:00 Daptomycin/Sodium Chloride (Cubicin/NS) 100 ml @ 200 mls/hr Q24H IVPB Last administered on 05/04/17 17:01; Admin Dose 200 MLS/HR; Start 04/26/17 at 16: 00 Amikacin Sulfate (Amikacin Iv Per Pharmacy) AMIKACIN PER PHARMACY NOTE XX ; Start 04/26/17 at 14:00 Acetaminophen/ Hydrocodone Bitart 1 tab 1 tab Q4H PRN PO PAIN Last administered on 05/05/17 05:22; Admin Dose 1 TAB; Start 04/29/17 at 09:30 Amikacin Sulfate/ Sodium Chloride (Amikacin/NS) 254 ml @ 254 mls/hr Q24H IVPB Last administered on 05/04/17 20:19; Admin Dose 254 MLS/HR; Start 05/01/17 at 20:00 Hydrocortisone (Hydrocortisone 1% Cr) 1 applic BID PRN TOP ITCHING; Start 11/ 18/17 at 17:00 Enoxaparin Sodium (Lovenox) 40 mg DAILY SC Last administered on 05/05/17t 09: 52; Admin Dose 40 MG; Start 05/05/17 at 09:00 Assessment/Plan Chief Complaint/Hosp Course Imp: s/p svt Patient declined colostomy. chronic resp failure. decub stage IV. PLAN: 1. Continue mechanical ventilation. 2. Continue surgical recommendations., 3. Broad-spectrum antibiotics. 4. Wound care. 5. Deep venous thrombosis and gastrointestinal prophylaxis. Transfer to [place] Problems: JIMMIE BARTON MD, [facility] May 05, 2017 13:52
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
--- NOTE | 2017-05-05 16:45 | DS ---
Date/Time of Note Date/Time of Note DATE: 05/05/17 TIME: 16:44 Discharge Summary Admission/Discharge Info Admit Date/Time Apr 21, 2017 at 18:32 Discharge Date/Time May 05, 2017 Discharge Diagnosis 1.SBO: - Resolved - Colonscopy normal 2. PEG tube dislodgement -PEG tube was changed by GI 3. Sepsis secondary to stage IV sacral decubitus ulcer: -Continue IV antibiotics per ID -Wound care - Colostomy can be considered at later date, cancelled given anemia patient refusal of packed blood cells secondary to being a [employer] 4. Microcytic anemia secondary to anemia of chronic disease -Rejects transfusions given he is jehovas witness 5. Chronic hypoxic respiratory failure: -Continue vent support via trach -Pulmonology following -DC to [facility] 6. Depression - Started on Zoloft 7. Anxiety - Lorazepam PRN Patient Condition: Good Hospital Course 1.SBO: - Resolved - Colonscopy normal 2. PEG tube dislodgement -PEG tube was changed by GI 3. Sepsis secondary to stage IV sacral decubitus ulcer: -Continue IV antibiotics per ID -Wound care - Colostomy can be considered at later date, cancelled given anemia with patient refusal of packed blood cells secondary to being a [employer] 4. Microcytic anemia secondary to anemia of chronic disease -Rejects transfusions given he is jehovas witness 5. Chronic hypoxic respiratory failure: -Continue vent support via trach -Pulmonology following -DC to [facility] 6. Depression - Started on Zoloft 7. Anxiety - Lorazepam PRN DC was held for several days while awaiting for a bed to become available at [facility] Home Meds No Active Prescriptions or Reported Meds Follow-up Plan Follow-up with physicians at [facility] Time spent on discharge: > 30 minutes SVEN WALLACE May 05, 2017 16:45
[2017-05-05] MEDS: SOD CHLORIDE 0.9% IVPB SCH (17:27)
[2017-05-05] MEDS: DAPTOMYCIN IVPB SCH (17:27)
== END 2017-05-05 18:22 | disposition short-term general hospital (02) | DRG 870 ==
LOC: ICU 18:32 → TEL 04-24 16:10
PROVIDERS: ADMIT Internal Medicine; ATTEND Internal Medicine
PROC: 5A1955Z Respiratory Ventilation, Greater than 96 Consecutive Hours (ICD-10-PCS; principal; 2017-04-21)
PROC: 3E0G76Z Introduction of Nutritional Substance into Upper GI, Via Natural or Artificial Opening (ICD-10-PCS; 2017-04-21)
PROC: 0DP6XUZ Removal of Feeding Device from Stomach, External Approach (ICD-10-PCS; 2017-04-22)
PROC: 0DH63UZ Insertion of Feeding Device into Stomach, Percutaneous Approach (ICD-10-PCS; 2017-04-22)
PROC: 0DJD8ZZ Inspection of Lower Intestinal Tract, Via Natural or Artificial Opening Endoscopic (ICD-10-PCS; 2017-04-28)
DX: A41.9 Sepsis, unspecified organism (principal); G82.50 Quadriplegia, unspecified; Z99.11 Dependence on respirator [ventilator] status; L89.154 Pressure ulcer of sacral region, stage 4; J96.11 Chronic respiratory failure with hypoxia; K56.699 Other intestinal obstruction unspecified as to partial versus complete obstruction; L89.893 Pressure ulcer of other site, stage 3; E11.43 Type 2 diabetes mellitus with diabetic autonomic (poly)neuropathy; K31.84 Gastroparesis; K56.609 Unspecified intestinal obstruction, unspecified as to partial versus complete obstruction; T85.528A Displacement of other gastrointestinal prosthetic devices, implants and grafts, initial encounter; I47.1 Supraventricular tachycardia; Z68.39 Body mass index [BMI] 39.0-39.9, adult; K94.29 Other complications of gastrostomy; Y83.8 Other surgical procedures as the cause of abnormal reaction of the patient, or of later complication, without mention of misadventure at the time of the procedure; D50.9 Iron deficiency anemia, unspecified; Z93.0 Tracheostomy status; R13.10 Dysphagia, unspecified; D63.8 Anemia in other chronic diseases classified elsewhere; F32.9 Major depressive disorder, single episode, unspecified; E87.6 Hypokalemia; F41.9 Anxiety disorder, unspecified; K64.4 Residual hemorrhoidal skin tags; E66.01 Morbid (severe) obesity due to excess calories; V89.2XXS Person injured in unspecified motor-vehicle accident, traffic, sequela; Z53.1 Procedure and treatment not carried out because of patient's decision for reasons of belief and group pressure; K59.00 Constipation, unspecified
CPT/HCPCS: 36600; 71010; 80048; 80053; 80150; 80202; 81001; 82550; 82565; 82803; 82962; 83735; 84100; 84520; 85025; 85335; 85610; 85730; 86920; 87040; 87070; 87075; 87086; 90686; 92610; 93005; 94002; 94003; 94640; J0278; J0282; J1200; J1650; J2060; J2270; J2405; J2543; J2765; J3370; J3475; J3480; J7040; J7042; J7050; J7060